=== PATIENT | female | born 1935 | race Caucasian/White ===

== ENCOUNTER 2016-05-31 10:24 | Inpatient (IN) | payer MEDICARE ==
[~2016-05-31] VITALS: Ht 165.1 cm; Wt 116.4 kg
[2016-05-31] VITALS (22 sets, daily range): BP systolic 85–144; BP diastolic 52–86; PULSE 75–99; RESP 12–24; TEMP 96.2–98.4; O2SAT 90–95; Ht 165.1 cm; Wt 116.4 kg
[~2016-05-31 10:24] MED LIST: ALLO100T PO; CHLO-120 PO; FEXO-118 PO; NAPR-1119 PO; PETR3.5O BOTH EYES; PROP10DR2 BOTH EYES; VALS160T25 PO; [UNRECOGNIZED DRUG - CODE] BOTH EYES
--- OUTSIDE RECORDS SUMMARY | 2016-05-31 10:29 | XMS REPORT | Continuity of Care Document ---
Author Author [facility] Organization [facility] Address Unknown Phone Unavailable Support Name Relationship Address Phone REJI KELLEY MD Caregiver [address] [place] [address] Unavailable PERI PENA MD Caregiver [address] [place] [place] [address] Unavailable GEORGIEMATIAS StoverA Next Of Kin Unknown [phone] Insurance Providers Guarantor Nasir Holt Address [place] [address] Email DENIED Payer [facility] Policy Number [id number] Subscriber's Name Tiburcio Holt July Relationship 18 Self Effective Date 08 Payer Medicare Policy Number [id number] Subscriber's Name Tiburcio Holt Julia Relationship 18 Self Effective Date 00 Advance Directives Directive Response Recorded Date/Time Advanced Directives Type None 02/17/16 1:42pm Chief Complaint and Reason for Visit Chief Complaint Nosebleed Reason for Visit Epistaxis Problems Past Problems Medical Problem Onset Date Epistaxis Unknown Medications Current Home Medications Medication Dose Units Route Directions Days Qty Instructions Start Date Allopurinol 100 Mg Tablet 100 Mg Oral Daily 02/17/16 Carboxymethylcellulose Sodium (Restore Tears) 30 Ml Drops 1 Drop Both Eyes Daily as needed for Prn Orders 02/17/16 Chlorpheniramine Maleate (Chlor-Trimeton) 4 Mg Tablet 4 Mg Oral Every 4 Hours as needed for Prn Orders 02/17/16 Fexofenadine Hcl 180 Mg Tablet 180 Mg Oral Daily 02/17/16 Mineral Oil/Petrolatum,White (Refresh P.m. Ointment) 3.5 Gm Oint...g. 1 Applic Both Eyes Bedtime as needed for Prn Orders 02/17/16 Naproxen Sodium (Naproxen 220MG) 220 Mg Tablet 440 Mg Oral Twice Daily With Meals 02/17/16 Propylene Glycol/Peg 400 (Systane Ultra 0.4-0.3% Eye Drp) 10 Ml Drops 1 Drop Both Eyes Four Times Daily as needed for Dry Eyes 02/17/16 Valsartan 160 Mg Tablet 160 Mg Oral Daily 02/17/16 Social History Social History Problem Response Recorded Date/Time Onset Date Status Hx Substance Use No 02/17/2016 2:28pm Not Applicable Not Applicable Query Response Start Date Stop Date Smoking Status Never smoker Hospital Discharge Instructions No hospital discharge instructions. Plan of Care Discharge Date 02/17/16 2:50pm Disposition 01 DISCHARGED HOME, SELF-CARE Condition at Discharge Stable Instructions/Education Provided DI for Nosebleed Prescriptions See Medication Section Referrals PERI PENA MD Address: [address] [place] [address] [place] [phone] Additional Instructions/Education I do want you to go to Dr. Sawyer's office from the ER. His office number is [phone] and his address is [address] [place] [address] in [place]. Care Plan and Goals Physician Care Plan Problem:Nosebleed Goal: Follow up with primary care provider Instructions: Take medications and follow care plan as discussed/written Functional Status No functional status results. Allergies, Adverse Reactions, Alerts Allergen Type Severity Reaction Status Last Updated Morphine Adverse Reaction Unknown "CRAZY" Active 02/17/16 Hydrocodone Adverse Reaction Unknown NAUSEA Active 02/17/16 Acetaminophen Adverse Reaction Unknown NAUSEA Active 02/17/16 Neomycin Allergy Intermediate RASH Active 02/17/16 Meperidine Adverse Reaction Unknown "CRAZY" Active 02/17/16 Immunizations Query Response on File Recorded Date/Time Influenza Vaccine Hx 12/1302/17/16 2:28pm Vital Signs Acute Vital Signs Vital Response Date/Time Pulse Rate (adult) 104 bpm (60 - 100) 02/17/2016 2:50pm Respiratory Rate 20 breaths/min (10 - 20) 02/17/2016 2:50pm O2 Sat by Pulse Oximetry 88 % (90 - 100) 02/17/2016 2:50pm Blood Pressure 161/74 mm Hg 02/17/2016 2:50pm Height (Feet) 5 feet 02/17/2016 1:42pm Height (Inches) 5.00 inches 02/17/2016 1:42pm Weight (Kilograms) 122.000 kg 02/17/2016 1:42pm Body Mass Index (BMI) 44.0 02/17/2016 1:42pm Results Laboratory Results Test Name Result Units Flags Reference Collection Date/Time Result Date/ Time Comments White Blood Count 7.1 T/MM3 4.5-11.0 02/17/2016 2:30pm 02/17/2016 2: 37pm Red Blood Count 4.30 M/MM3 4.00-5.20 02/17/2016 2:30pm 02/17/2016 2: 37pm Hemoglobin 14.9 GM/DL 12-16 02/17/2016 2:30pm 02/17/2016 2:37pm Hematocrit 43.9 % 36-46 02/17/2016 2:30pm 02/17/2016 2:37pm Mean Corpuscular Volume 102.1 UM3 H 80-100 02/17/2016 2:30pm 02/17/2016 2:37pm Mean Corpuscular Hemoglobin 34.7 UUG H 26-34 02/17/2016 2:30pm 2015 2:37pm Mean Corpuscular Hemoglobin Concent 33.9 GM/DL 31-37 02/17/2016 2:30pm 02/17/2016 2:37pm RDW Standard Deviation 54.2 FL H 36.9-50.2 02/17/2016 2:30pm 02/17/2016 2:37pm Platelet Count 152 T/MM3 130-400 02/17/2016 2:30pm 02/17/2016 2:37pm Mean Platelet Volume 10.4 UM3 9.4-12.4 02/17/2016 2:30pm 02/17/2016 2: 37pm Neutrophils (%) (Auto) 65.0 % 33-66 02/17/2016 2:30pm 02/17/2016 2: 37pm Lymphocytes (%) (Auto) 18.2 % L 23-45 02/17/2016 2:30pm 02/17/2016 2: 37pm Monocytes (%) (Auto) 10.9 % H 0-9.0 02/17/2016 2:30pm 02/17/2016 2:37pm Eosinophils (%) (Auto) 4.7 % H 0-4 02/17/2016 2:30pm 02/17/2016 2:37pm Basophils (%) (Auto) 0.8 % 0-2 02/17/2016 2:30pm 02/17/2016 2:37pm Immature Granulocyte % (Auto) 0.4 % 0.0-0.5 02/17/2016 2:30pm 2015 2:37pm Absolute Neutrophils (auto) 4.6 T/MM3 1.8-7.7 02/17/2016 2:30pm 2015 2:37pm Absolute Lymphocytes (auto) 1.3 T/MM3 1-4.8 02/17/2016 2:30pm 2015 2:37pm Absolute Monocytes (auto) 0.8 T/MM3 0-0.8 02/17/2016 2:30pm 02/17/2016 2:37pm Absolute Eosinophils (auto) 0.3 T/MM3 0-0.5 02/17/2016 2:30pm 2015 2:37pm Absolute Basophils (auto) 0.1 T/MM3 0-0.2 02/17/2016 2:30pm 02/17/2016 2:37pm Absolute Immature Granulocyte (auto 0.03 T/MM3 0.00-0.03 02/17/2016 2: 30pm 02/17/2016 2:37pm Procedures No known history of procedures. Encounters Encounter Location Arrival/Admit Date Discharge/Depart Date Attending Provider Departed Emergency Room [facility] 02/17/16 1:42pm 02/17/16 2: 50pm REJI KELLEY MD Recent Diagnosis
--- OUTSIDE RECORDS SUMMARY | 2016-05-31 10:30 | XMS REPORT | Referral Summary ---
Author Author [facility] Organization [facility] Address Unknown Phone Unavailable Care Team Providers Care Brim Presser Name Role Phone Bolivar Clark Primary Care Physician [phone] Encounter Date(s): 01/26/16 - 01/26/16 [facility], [address] [place] [address]- Discharge Diagnosis: Moderate to severe pulmonary hypertension Discharge Diagnosis: CKD (chronic kidney disease) stage 3, GFR 30-59 ml/min Discharge Diagnosis: Mild mitral stenosis Discharge Diagnosis: Chronic low back pain Discharge Diagnosis: Mitral regurgitation Discharge Diagnosis: Mild major depression Discharge Diagnosis: Benign essential hypertension Discharge Diagnosis: Lymphedema of leg Discharge Diagnosis: Need for influenza vaccination Discharge Diagnosis: Impaired fasting blood sugar Discharge Diagnosis: Morbid obesity Discharge Diagnosis: Urinary incontinence, mixed Discharge Diagnosis: Peripheral neuropathy Discharge Disposition: 01-Home or Self Care Attending Physician: Momo Clark MD Admitting Physician: Momo Clark MD Vital Signs Most recent to 1 oldest [Reference Range]: Temperature Tympanic 36.8 degC [36.6-38.1 degC] (01/26/16 1:18 PM) Peripheral Pulse 112 bpm Rate [60-100 bpm] *HI* (01/26/16 1:18 PM) Respiratory Rate 16 br/min [14-20 br/min] (01/26/16 1:18 PM) Blood Pressure 132/78 mmHg [90-140/60-90 mmHg] (01/26/16 1:18 PM) Problem List Condition Effective Dates Status Health Status Informant Gait Active disturbance(Confirme d) Allergies(Confirmed) Active Allergic Active rhinitis/hay fever(Confirmed) Anesthetic Active Complications(Confir med) Bladder Active problem(Confirmed) Chronic low back Active pain(Confirmed) Depression(Confirmed Active ) Dizziness(Confirmed) Active Eczema(Confirmed) Active Stress Active incontinence(Confirm ed) Gout(Confirmed) Active Hypertension(Confirm Active ed) Osteoarthritis(Confi Active rmed) Impaired fasting Active blood sugar(Confirmed) Mild major Active depression(Confirmed ) Morbid Active patient obesity(Confirmed) Pneumonia(Confirmed) Active Peripheral Active neuropathy(Confirmed ) Scarlet Active fever(Confirmed) Sinus Active infections(Confirmed ) Tuberculosis(Confirm Active ed) Urge Active incontinence(Confirm ed) Chicken Active pox(Confirmed) Allergies, Adverse Reactions, Alerts Substance Reaction Severity Status acetaminophen Active Animal Dander: Feline or eyes swell Active Canin aspirin Active Chromium1 Active ergot alkaloids Active HYDROcodone Active meperidine Active Mold Active morphine Active neomycin TOPICAL SKIN REACTION Severe Active Pollen Active 1in nasal spray Medications Poppy 180 mg, Oral, Daily, 0 Refill(s) Start Date: 07/21/15 Status: Ordered allopurinol 100 mg oral tablet 100 mg 1 tabs, Oral, Daily, # 90 tabs, 2 Refill(s), Pharmacy: [email or web address], 1 tabs Oral Daily Start Date: 08/07/15 Status: Ordered Chlor-Trimeton 4 mg, Oral, as needed for allergy symptoms, 0 Refill(s) Start Date: 07/31/13 Status: Ordered Home Oxygen (DME) DME Item Take 3lpm at night and PRN on nasal cannula., See Instructions, # 1 Each, 0 Refill(s), Supply Start Date: 07/09/15 Status: Ordered Home Oxygen (DME) 3 LPM, Nasal, Bedtime (once a day), # 1 Each, 0 Refill(s), Supply Start Date: 11/19/15 Status: Ordered naproxen sodium 220 mg oral tablet 2 tabs, Oral, BID, # 60 tabs, 0 Refill(s) Start Date: 07/31/13 Status: Ordered Refresh PM odilia, Eye-Both, Bedtime (once a day), as needed for dry eyes, 0 Refill(s) Start Date: 07/31/13 Status: Ordered Systane Ultra drops, Eye-Both, BID, 0 Refill(s) Start Date: 07/31/13 Status: Ordered valsartan 160 mg oral tablet 160 mg 1 tabs, Oral, Daily, # 90 tabs, 2 Refill(s), Pharmacy: [email or web address], 1 tabs Oral Daily Start Date: 08/07/15 Status: Ordered Results Chemistry Most recent to 1 oldest [Reference Range]: Sodium Lvl [135-144 139 mEq/L mEq/L] (01/26/16 1:50 PM) Potassium Lvl 4.9 mEq/L [3.5-5.2 mEq/L] (01/26/16 1:50 PM) Chloride [99-111 104 mEq/L mEq/L] (01/26/16 1:50 PM) CO2 [22-31 mEq/L] 28 mEq/L (01/26/16 1:50 PM) AGAP [3-20] 7 (01/26/16 1:50 PM) BUN [10-20 mg/dL] 20 mg/dL (01/26/16 1:50 PM) Glucose Lvl [70-99 99 mg/dL mg/dL] (01/26/16 1:50 PM) Creatinine Lvl 0.87 mg/dL [0.57-1.11 mg/dL] (01/26/16 1:50 PM) eGFR [>60 mL/min] >60 mL/min 1 (01/26/16 1:50 PM) Calcium Lvl 9.5 mg/dL [8.9-10.5 mg/dL] (01/26/16 1:50 PM) Albumin Lvl [3.4-4.8 4.1 gm/dL gm/dL] (01/26/16 1:50 PM) Total Protein 7.3 gm/dL [6.0-7.6 gm/dL] (01/26/16 1:50 PM) Globulin [1.8-4.0 3.2 gm/dL gm/dL] (01/26/16 1:50 PM) ALT [0-55 U/L] 13 U/L (01/26/16 1:50 PM) AST [5-34 U/L] 21 U/L (01/26/16 1:50 PM) Alk Phos [40-150 66 U/L U/L] (01/26/16 1:50 PM) Bili Total [0.2-1.2 0.7 mg/dL mg/dL] (01/26/16 1:50 PM) Hgb A1c [4.1-5.6 %] 5.4 % (01/26/16 1:50 PM) eAvg Glucose 108.3 mg/dL (01/26/16 1:50 PM) 1Result Comment: Multiply eGFR results by 1.21 for race. Immunizations Vaccine Date Refusal Reason influenza virus vaccine, inactivated 01/08/15 tetanus-diphth toxoids (Td) adult/adol 08/23/08 Procedures Procedure Date Related Diagnosis Body Site Right Cataract extraction and insertion of 2014 intraocular lens Rt Shoulder Hemiarthroplasty 08/2006 Adenoidectomy Colonoscopy Hammertoe x21 Joint replacement Knee replacement2 Tonsillectomy 1Surgery 2Right and left Social History Social History Type Response Smoking Status Never smoker Assessment and Plan Extracted from: Title: Ambulatory Patient Education Author: Momo Clark MD Date: Musculoskeletal Back Pain, Adult Back pain is very common in adults.The cause of back pain is rarely dangerous and the pain often gets better over time.The cause of your back pain may not be known. Some common causes of back pain include: Strain of the muscles or ligaments supporting the spine. Wear and tear (degeneration) of the spinal disks. Arthritis. Direct injury to the back. For many people, back pain may return. Since back pain is rarely dangerous, most people can learn to manage this condition on their own. HOME CARE INSTRUCTIONS Watch your back pain for any changes. The following actions may help to lessen any discomfort you are feeling: Remain active. It is stressful on your back to sit or lithographers printer one place for long periods of time. Do not sit, drive, or lithographers printer one place for more than 30 minutes at a time. Take short walks on even surfaces as soon as you are able.Try to increase the length of time you walk each day. Exercise regularly as directed by your health care provider. Exercise helps your back heal faster. It also helps avoid future injury by keeping your muscles strong and flexible. Do not stay in bed.Resting more than 12 days can delay your recovery. Pay attention to your body when you bend and lift. The most comfortable positions are those that put less stress on your recovering back. Always use proper lifting techniques, including: Bending your knees. Keeping the load close to your body. Avoiding twisting. Find a comfortable position to sleep. Use a firm mattress and lie on your side with your knees slightly bent. If you lie on your back, put a pillow under your knees. Avoid feeling anxious or stressed.Stress increases muscle tension and can worsen back pain.It is important to recognize when you are anxious or stressed and learn ways to manage it, such as with exercise. Take medicines only as directed by your health care provider. Over-the- counter medicines to reduce pain and inflammation are often the most helpful. Your health care provider may prescribe muscle relaxant drugs.These medicines help dull your pain so you can more quickly return to your normal activities and healthy exercise. Apply ice to the injured area: Put ice in a plastic bag. Place a towel between your skin and the bag. Leave the ice on for 20 minutes, 23 times a day for the first 23 days. After that, ice and heat may be alternated to reduce pain and spasms. Maintain a healthy weight. Excess weight puts extra stress on your back and makes it difficult to maintain good posture. SEEK MEDICAL CARE IF: You have pain that is not relieved with rest or medicine. You have increasing pain going down into the legs or buttocks. You have pain that does not improve in one week. You have night pain. You lose weight. You have a fever or chills. SEEK IMMEDIATE MEDICAL CARE IF: You develop new bowel or bladder control problems. You have unusual weakness or numbness in your arms or legs. You develop nausea or vomiting. You develop abdominal pain. You feel faint. This information is not intended to replace advice given to you by your health care provider. Make sure you discuss any questions you have with your health care provider. Document Released: 02/14/2006 Document Revised: 03/07/2015 Document Reviewed: [employer] Patient Education 2016 [employer] No follow up information was provided. Extracted from: Title: multiple medical problems Author: Momo Clark MD Date: Impression and Plan Diagnosis Lymphedema of leg (KLW17-DO I89.0, Discharge, Medical). Mild major depression (RQA36-XL F32.0, Discharge, Medical). Need for influenza vaccination (ATQ18-VU Z23, Discharge, Medical). Benign essential hypertension (EMQ99-RH I10, Discharge, Medical). Peripheral neuropathy (ULC13-BR G62.9, Discharge, Medical). Mitral regurgitation (BZE14-GN I34.0, Discharge, Medical). Mild mitral stenosis (XPC33-QO I05.0, Discharge, Medical). Moderate to severe pulmonary hypertension (HUU84-HE I27.2, Discharge, Medical). Chronic low back pain (BJZ97-EZ M54.5, Discharge, Medical). CKD (chronic kidney disease) stage 3, GFR 30-59 ml/min (NEF50-AW N18.3, Discharge, Medical). Impaired fasting blood sugar (DBC84-UI R73.01, Discharge, Medical). Morbid obesity (BUS18-WA E66.01, Discharge, Medical). Urinary incontinence, mixed (ENI36-BU N39.46, Discharge, Medical). Plan: 1) Healthy diet and daily exercise helps most things. 2) You refused the Influenza vaccine and the Prevnar-13 vaccines due to your allergies. 3) You didn't want to see the Neurologist. 4) Continue your present meds and oxygen. 5) See the edging catcher and tooth cutter spur, as scheduled. 6) See me in 3 months and as needed. 7) Lab ordered today. . Orders Orders (Selected) Outpatient Orders Order Office Visit Level 5 Est 46259: . Dx/Order Association Plan: Diagnosis: Benign essential hypertension Comment: Ordered: Office Visit Level 5 Est 36201; 01/26/16 13:12:00 EDUCATION SUPERVISOR, Lymphedema of leg | Mild major depression | Benign essential hypertension | Peripheral neuropathy | Mitral regurgitation | Mild mitral stenosis | Moderate to severe pulmonary hypertension | Chronic low back pain | CKD (chronic k... Diagnosis: CKD (chronic kidney disease) stage 3, GFR 30-59 ml/min Comment: Ordered: Office Visit Level 5 Est [id number]; 01/26/16 13:12:00 EDUCATION SUPERVISOR, Lymphedema of leg | Mild major depression | Benign essential hypertension | Peripheral neuropathy | Mitral regurgitation | Mild mitral stenosis | Moderate to severe pulmonary hypertension | Chronic low back pain | CKD (chronic k... Diagnosis: Chronic low back pain Comment: Ordered: Office Visit Level 5 Est 75939; 01/26/16 13:12:00 EDUCATION SUPERVISOR, Lymphedema of leg | Mild major depression | Benign essential hypertension | Peripheral neuropathy | Mitral regurgitation | Mild mitral stenosis | Moderate to severe pulmonary hypertension | Chronic low back pain | CKD (chronic k... Diagnosis: Lymphedema of leg Comment: Ordered: Office Visit Level 5 Est [id number]; 01/26/16 13:12:00 EDUCATION SUPERVISOR, Lymphedema of leg | Mild major depression | Benign essential hypertension | Peripheral neuropathy | Mitral regurgitation | Mild mitral stenosis | Moderate to severe pulmonary hypertension | Chronic low back pain | CKD (chronic k... Diagnosis: Mild major depression Comment: Ordered: Office Visit Level 5 Est [id number]; 01/26/16 13:12:00 EDUCATION SUPERVISOR, Lymphedema of leg | Mild major depression | Benign essential hypertension | Peripheral neuropathy | Mitral regurgitation | Mild mitral stenosis | Moderate to severe pulmonary hypertension | Chronic low back pain | CKD (chronic k... Diagnosis: Mild mitral stenosis Comment: Ordered: Office Visit Level 5 Est [id number]; 01/26/16 13:12:00 EDUCATION SUPERVISOR, Lymphedema of leg | Mild major depression | Benign essential hypertension | Peripheral neuropathy | Mitral regurgitation | Mild mitral stenosis | Moderate to severe pulmonary hypertension | Chronic low back pain | CKD (chronic k... Diagnosis: Mitral regurgitation Comment: Ordered: Office Visit Level 5 Est [id number]; 01/26/16 13:12:00 EDUCATION SUPERVISOR, Lymphedema of leg | Mild major depression | Benign essential hypertension | Peripheral neuropathy | Mitral regurgitation | Mild mitral stenosis | Moderate to severe pulmonary hypertension | Chronic low back pain | CKD (chronic k... Diagnosis: Moderate to severe pulmonary hypertension Comment: Ordered: Office Visit Level 5 Est [id number]; 01/26/16 13:12:00 EDUCATION SUPERVISOR, Lymphedema of leg | Mild major depression | Benign essential hypertension | Peripheral neuropathy | Mitral regurgitation | Mild mitral stenosis | Moderate to severe pulmonary hypertension | Chronic low back pain | CKD (chronic k... Diagnosis: Need for influenza vaccination Comment: Diagnosis: Peripheral neuropathy Comment: Ordered: Office Visit Level 5 Est [id number]; 01/26/16 13:12:00 EDUCATION SUPERVISOR, Lymphedema of leg | Mild major depression | Benign essential hypertension | Peripheral neuropathy | Mitral regurgitation | Mild mitral stenosis | Moderate to severe pulmonary hypertension | Chronic low back pain | CKD (chronic k... End of Orders ."
--- OUTSIDE RECORDS SUMMARY | 2016-05-31 10:30 | XMS REPORT | Referral Summary ---
Author Author [facility] Organization [facility] Address Unknown Phone Unavailable Care Team Providers Care Director Of Research And Development Name Role Phone Bolivar Clark Primary Care Physician [phone] Encounter VC Date(s): 01/28/16 - 01/28/16 [facility] [address] [place] [address] [place] [address] Discharge Diagnosis: Overweight Discharge Diagnosis: Incontinence Discharge Diagnosis: Sleep apnea Discharge Diagnosis: Hypoxia Discharge Diagnosis: Hypertension Discharge Disposition: 01-Home or Self Care Attending Physician: Pantera Demarco MD Admitting Physician: Pantera Demarco MD Referring Physician: Momo Clark MD Vital Signs Most recent to 1 oldest [Reference Range]: Peripheral Pulse 90 bpm Rate [60-100 bpm] (01/28/16 12:13 PM) Blood Pressure 148/86 mmHg [90-140/60-90 mmHg] *HI* (01/28/16 12:13 PM) Problem List Condition Effective Dates Status [...] Daily, # 90 tabs, 2 Refill(s), Pharmacy: [facility], 1 tabs Oral Daily Start [...] Daily, # 90 tabs, 2 Refill(s), Pharmacy: [facility], 1 tabs Oral Daily Start Date: 08/07/15 Status: Ordered Results No data available for this section Immunizations Vaccine Date Refusal Reason influenza virus [...] smoker Assessment and Plan Extracted from: Title: Office Visit Note Author: Pantera Demarco MD Date: 01/28/16 Assessment/Plan 1.Hypoxia 2.Incontinence 3.Overweight 4.Sleep apnea 5.Hypertension Discussion: I think that her edema would be a lot better if she weren't taking nonsteroidal anti-inflammatory drugs however,the naproxen is probably reasonable for her arthralgias. We reviewedthe importance of oxygen therapyand pointed out that her hemoglobin level is actually getting better. We advised her that it is still reasonable to have a sleep evaluation. She is to see me in 6-12 months or any time as necessary.
--- OUTSIDE RECORDS SUMMARY | 2016-05-31 10:31 | XMS REPORT | Referral Summary ---
Author Author Via JACQUELINE Florian Newton, [facility] Organization [facility] JACQUELINE Florian Newton [facility] Address Unknown Phone Unavailable Care Team Providers Care Hand Gluer And Slicer Name Role Phone Bolivar Clark Primary Care Physician [phone] Encounter Date(s): 04/26/16 - 04/26/16 Via JACQUELINE Florian Newton, [address] [place] [id number]- Discharge Diagnosis: Benign essential hypertension Discharge Diagnosis: Mitral regurgitation Discharge Diagnosis: Chronic low back pain Discharge Diagnosis: Polyneuropathy Discharge Diagnosis: Moderate to severe pulmonary hypertension Discharge Diagnosis: CKD (chronic kidney disease) stage 3, GFR 30-59 ml/min Discharge Diagnosis: TAYO (obstructive sleep apnea) Discharge Diagnosis: Urinary incontinence, mixed Discharge Diagnosis: Mild mitral stenosis Discharge Diagnosis: Impaired fasting blood sugar Discharge Diagnosis: Mild major depression Discharge Diagnosis: Lymphedema of leg Discharge Diagnosis: Morbid obesity Discharge Disposition: 01-Home or Self Care Attending Physician: Momo Clark MD Admitting Physician: Momo Clark MD Vital Signs Most recent to 1 oldest [Reference Range]: Temperature Tympanic 36.3 degC [36.6-38.1 degC] *LOW* (04/26/16 1:37 PM) Peripheral Pulse 100 bpm Rate [60-100 bpm] (04/26/16 1:37 PM) Blood Pressure 136/76 mmHg [90-140/60-90 mmHg] (04/26/16 1:37 PM) Problem List Condition Effective Dates Status [...] 1 tabs, Oral, Daily, # 90 tabs, 3 Refill(s), Pharmacy: [facility], 1 tabs Oral Daily,x90 days Start Date: 04/26/16 Stop Date: 04/21/17 Status: Ordered Chlor-Trimeton 4 mg, Oral, as [...] Ordered naproxen sodium 220 mg oral tablet 220 mg 1 tabs, Oral, BID, # 60 tabs, 0 Refill(s) Start Date: 07/31/13 Status: Ordered Neilmed Nasogel nasal gel as needed for sleep, 0 Refill(s) Start Date: 04/26/16 Status: Ordered Refresh PM odilia, Eye-Both, Bedtime (once a day), as needed for dry eyes, 0 Refill(s) Start Date: 07/31/13 Status: Ordered Systane Ultra drops, Eye-Both, BID, 0 Refill(s) Start Date: 07/31/13 Status: Ordered valsartan 160 mg oral tablet 160 mg 1 tabs, Oral, Daily, # 90 tabs, 3 Refill(s), Pharmacy: [facility], 1 tabs Oral Daily,x90 days Start Date: 04/26/16 Stop Date: 04/21/17 Status: Ordered Results No data available for this section Immunizations Given and Recorded Vaccine Date Status Refusal Reason influenza virus vaccine, inactivated 01/08/15 Given tetanus-diphth toxoids (Td) adult/adol 08/23/08 Recorded Procedures Procedure Date Related Diagnosis Body Site Right Cataract extraction and insertion of 2014 intraocular lens Rt Shoulder Hemiarthroplasty 08/2006 Adenoidectomy Colonoscopy Hammertoe x21 Joint replacement Knee replacement2 Tonsillectomy 1Surgery 2Right and left Social History Social History Type Response Smoking Status Never smoker Assessment and Plan Extracted from: Title: Ambulatory Patient Education Author: Momo Clark MD Date: 04/26 Musculoskeletal Back Pain, Adult Back pain is [...] stressful on your back to 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 Do not sit, drive, or relief captain one place for more than 30 minutes [...] Released: 02/14/2006 Document Revised: 03/07/2015 Document Reviewed: [employer] Patient Education 2016 [employer] No follow up information was provided. Extracted from: Title: several problems Author: Momo Clark MD Date: 04/26/16 Impression and Plan Diagnosis Benign essential hypertension (SVV36-WT I10, Discharge, Medical). Chronic low back pain (VIJ84-EA M54.5, Discharge, Medical). CKD (chronic kidney disease) stage 3, GFR 30-59 ml/min (CDW11-BT N18.3, Discharge, Medical). Impaired fasting blood sugar (QSK37-RB R73.01, Discharge, Medical). Lymphedema of leg (SLJ91-JO I89.0, Discharge, Medical). Mild major depression (ZNE26-HO F32.0, Discharge, Medical). Mild mitral stenosis (WSH12-RE I05.0, Discharge, Medical). Mitral regurgitation (IWZ07-HE I34.0, Discharge, Medical). Moderate to severe pulmonary hypertension (OZO82-PB I27.2, Discharge, Medical). Morbid obesity (MQH62-AO E66.01, Discharge, Medical). TAYO (obstructive sleep apnea) (AQP08-KA G47.33, Discharge, Medical). Polyneuropathy (JJX32-PV G62.9, Discharge, Medical). Urinary incontinence, mixed (URD29-FM N39.46, Discharge, Medical). Plan: 1) Continue your present meds. 2) Continue your oxygen when sleeping. 3) See me in 3 months and as needed. 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 . Orders Orders (Selected) Outpatient Orders Ordered Office Visit Level 4 Est 11655: Prescriptions Prescribed allopurinol 100 mg oral tablet: 100 mg=1 tabs, Oral, Daily, for 90 days, 90 tabs , 3 Refill(s) valsartan 160 mg oral tablet: 160 mg=1 tabs, Oral, Daily, for 90 days, 90 tabs, 3 Refill(s). 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 Diagnosis: CKD (chronic kidney disease) stage 3, GFR 30-59 ml/min Comment: Ordered: Office Visit Level 4 Est [id number]; 04/26/16 13:33:00 ASSISTANT PUBLIC DEFENDER, Moderate to severe pulmonary hypertension | TAYO (obstructive sleep apnea) | Benign essential hypertension | CKD (chronic kidney disease) stage 3, GFR 30-59 ml/min | Chronic low back pain | Impaired fasting blood sugar | Lymphede... Diagnosis: Chronic low back pain Comment: Ordered: Office Visit Level 4 Est [id number]; 04/26/16 13:33:00 ASSISTANT PUBLIC DEFENDER, Moderate to severe pulmonary hypertension | TAYO (obstructive sleep apnea) | Benign essential hypertension | CKD (chronic kidney disease) stage 3, GFR 30-59 ml/min | Chronic low back pain | Impaired fasting blood sugar | Lymphede... Diagnosis: Impaired fasting blood sugar Comment: Ordered: Office Visit Level 4 Est [id number]; 04/26/16 13:33:00 ASSISTANT PUBLIC DEFENDER, Moderate to severe pulmonary hypertension | TAYO (obstructive sleep apnea) | Benign essential hypertension | CKD (chronic kidney disease) stage 3, GFR 30-59 ml/min | Chronic low back pain | Impaired fasting blood sugar | Lymphede... Diagnosis: Lymphedema of leg Comment: Ordered: Office Visit Level 4 Est [id number]; 04/26/16 13:33:00 ASSISTANT PUBLIC DEFENDER, Moderate to severe pulmonary hypertension | TAYO (obstructive sleep apnea) | Benign essential hypertension | CKD (chronic kidney disease) stage 3, GFR 30-59 ml/min | Chronic low back pain | Impaired fasting blood sugar | Lymphede... Diagnosis: Mild major depression Comment: Ordered: Office Visit Level 4 Est [id number]; 04/26/16 13:33:00 ASSISTANT PUBLIC DEFENDER, Moderate to severe pulmonary hypertension | TAOY (obstructive sleep apnea) | Benign essential hypertension | CKD (chronic kidney disease) stage 3, GFR 30-59 ml/min | Chronic low back pain | Impaired fasting blood sugar | Lymphede... Diagnosis: Mild mitral stenosis Comment: Ordered: Office Visit Level 4 Est [id number]; 04/26/16 13:33:00 ASSISTANT PUBLIC DEFENDER, Moderate to severe pulmonary hypertension | TAYO (obstructive sleep apnea) | Benign essential hypertension | CKD (chronic kidney disease) stage 3, GFR 30-59 ml/min | Chronic low back pain | Impaired fasting blood sugar | Lymphede... Diagnosis: Mitral regurgitation Comment: Ordered: Office Visit Level 4 Est [id number]; 04/26/16 13:33:00 ASSISTANT PUBLIC DEFENDER, Moderate to severe pulmonary hypertension | TAYO (obstructive sleep apnea) | Benign essential hypertension | CKD (chronic kidney disease) stage 3, GFR 30-59 ml/min | Chronic low back pain | Impaired fasting blood sugar | Lymphede... Diagnosis: Moderate to severe pulmonary hypertension Comment: Ordered: Office Visit Level 4 Est [id number]; 04/26/16 13:33:00 ASSISTANT PUBLIC DEFENDER, Moderate to severe pulmonary hypertension | TAYO (obstructive sleep apnea) | Benign essential hypertension | CKD (chronic kidney disease) stage 3, GFR 30-59 ml/min | Chronic low back pain | Impaired fasting blood sugar | Lymphede... Diagnosis: Morbid obesity Comment: Diagnosis: TAYO (obstructive sleep apnea) Comment: Ordered: Office Visit Level 4 Est [id number]; 04/26/16 13:33:00 ASSISTANT PUBLIC DEFENDER, Moderate to severe pulmonary hypertension | TAYO (obstructive sleep apnea) | Benign essential hypertension | CKD (chronic kidney disease) stage 3, GFR 30-59 ml/min | Chronic low back pain | Impaired fasting blood sugar | Lymphede... Diagnosis: Polyneuropathy Comment: Ordered: Office Visit Level 4 Est [id number]; 04/26/16 13:33:00 ASSISTANT PUBLIC DEFENDER, Moderate to severe pulmonary hypertension | TAYO (obstructive sleep apnea) | Benign essential hypertension | CKD (chronic kidney disease) stage 3, GFR 30-59 ml/min | Chronic low back pain | Impaired fasting blood sugar | Lymphede... Diagnosis: Urinary incontinence, mixed Comment: Ordered: Office Visit Level 4 Est 33374; 04/26/16 13:33:00 ASSISTANT PUBLIC DEFENDER, Moderate to severe pulmonary hypertension | TAYO (obstructive sleep apnea) | Benign essential hypertension | CKD (chronic kidney disease) stage 3, GFR 30-59 ml/min | Chronic low back pain | Impaired fasting blood sugar | Lymphede... Additional Orders: Comment: Ordered: Neilmed Nasogel nasal gel,as needed for sleep, 0 Refill(s) Ordered: allopurinol 100 mg oral tablet,100 mg 1 tabs, Oral, Daily , # 90 tabs, 3 Refill(s), Pharmacy: [facility], 1 tabs Oral Daily,x90 days Ordered: valsartan 160 mg oral tablet,160 mg 1 tabs, Oral, Daily, # 90 tabs, 3 Refill(s), Pharmacy: [facility], 1 tabs Oral Daily,x90 days End of Orders ."
--- NOTE | 2016-05-31 10:50 | NUR ---
PHYSICIAN VISIT DR. ROY IN TO SEE PATIENT.
[2016-05-31] MEDS ORDERED: NORMAL SALINE 1,000 ML IV ONE ×2 (10:55→12:45)
[2016-05-31] MEDS ORDERED: ACET-3088 PO (11:00)
[2016-05-31] MEDS ORDERED: ACET-2321 PO (11:02)
[2016-05-31 11:13] LABS: BASOPHILS % (AUTO) 0.4 % (0-2); EOSINOPHILS # (AUTO) 0.2 T/MM3 (0-0.5); EOSINOPHILS % (AUTO) 3.1 % (0-4); HGB - HEMOGLOBIN 14.5 GM/DL (12-16); IMMATURE GRANULOCYTE # (AUTO) 0.03 T/MM3 (0.00-0.03); IMMATURE GRANULOCYTE % (AUTO) 0.4 % (0.0-0.5); LYMPHOCYTES # (AUTO) 1.5 T/MM3 (1-4.8); LYMPHOCYTES % (AUTO) 21.6 % (23-45); MEAN CORPUSCULAR HGB 33.2 UUG (26-34); MEAN CORPUSCULAR HGB CONC(MCHC 32.2 GM/DL (31-37); MEAN PLATELET VOLUME 10.6 UM3 (9.4-12.4); MONOCYTES # (AUTO) 0.6 T/MM3 (0-0.8); NEUTROPHILS #(AUTO)-ABSOLUTE 4.6 T/MM3 (1.8-7.7); NEUTROPHILS % (AUTO) 66.5 % (33-66); RED BLOOD COUNT 4.37 M/MM3 (4.00-5.20)
[2016-05-31 11:24] LABS: ALBUMIN/GLOBULIN RATIO 1.1 RATIO (1.1-2.2); ALKALINE PHOSPHATASE 64 U/L (38-126); ALT (SGPT) 27 U/L (9-52); ANION GAP 10 MEQ/L (5-15); AST (SGOT) 25 U/L (14-36); BUN/CREATININE RATIO 31 RATIO (6-26); CALCIUM 9.4 MG/DL (8.4-10.2); CHLORIDE 104 MEQ/L (98-107); CO2 - CARBON DIOXIDE 29 MEQ/L (22-30); CREATININE 0.8 MG/DL (0.7-1.2); GLOMERULAR FILTRATION RATE 69; GLUCOSE 124 MG/DL (65-110); LIPASE 39 U/L (23-300); POTASSIUM 4.7 MEQ/L (3.6-5); SODIUM 143 MEQ/L (134-144); TOTAL PROTEIN 7.7 G/DL (6.3-8.2)
--- NOTE | 2016-05-31 12:33 | NUR ---
ADMISSION PATIENT ASSIGNED ROOM 139. TATIANA CROWDER TO TAKE REPORT.
--- NOTE | 2016-05-31 12:35 | NUR ---
REPORT REPORT GIVEN TO TATIANA CROWDER.
--- NOTE | 2016-05-31 12:41 | ERPDOC ---
Departure Disposition Decision Date: May 31, 2016 Disposition Decision Time: 12:40 Disposition: 02 [place] [facility] [place] Impression Impression: Primary Impression: GI bleeding GI bleed type/associated pathology: unspecified gastrointestinal hemorrhage type Qualified Codes: K92.2 - Gastrointestinal hemorrhage, unspecified Severity: Mild Condition: Improved Seen By: Physician only Referrals: PERI PENA MD (Family) Problems/Meds/Labs Reviewed?: Yes Medications reviewed and manag: Yes Follow up care ordered?: Yes Mental Status: Alert, Oriented HPI - General Medical General Chief Complaint: GI Bleed Stated Complaint: GI BLEED Time Seen by Provider: 10:55 Source: patient (Patient presents to the ER with GI Bleeding. Patient apparently has had 4 large stools this morning with Bright red blood per rectum. Patient apparently was seen by Dr. Huber in the office, who sent the patient to the ER for treatment and admission. ) Exam Limitations: no limitations HPI - General Medical Occurred At: home Onset: Changing over time Duration: 6-12 hrs Pain Scale: Now & Worst: 0/10 Modifying Factors: IMPROVES WITH: other Associated Symptoms: malaise, other, weakness, DENIES: chest pain, cough, diaphoresis, fever/chills, headaches, loss of appetite, nausea/vomiting, rash, seizure, shortness of breath, syncope Hx of Similar Symptoms: Yes Allergies: Coded Allergies: neomycin (Verified Allergy, Intermediate, RASH, 05/31/16) amino acids (Verified Allergy, Unknown, 05/31/16) chromium (Verified Allergy, Unknown, 05/31/16) ergot alkaloids (Verified Allergy, Unknown, 05/31/16) acetaminophen (Verified Adverse Reaction, Unknown, NAUSEA, 05/31/16) hydrocodone (Verified Adverse Reaction, Unknown, NAUSEA, 05/31/16) meperidine (Verified Adverse Reaction, Unknown, "CRAZY", 05/31/16) morphine (Verified Adverse Reaction, Unknown, "CRAZY", 05/31/16) Past History Past Medical History Metabolic: gout Cardiac: CAD, angina Surgical History Denies Surgeries General: colonoscopy Family History Family PMH: FOUND: other Social History Smoking Status: Unknown if ever smoked Does patient use chewing tobac: No Second Hand Exposure: No Substance Use Type: does not use Alcohol Intake: none Housing: house Service: No Occupational Hazard: No Advance Directives: Yes Full Code Record Review Pertinent history updated: Yes Review of Systems Constitutional Constitutional: DENIES: chills, fever Eyes Lids/Accessories: DENIES: erythema, swelling ENMT Ears: DENIES: erythema, pain Balance: DENIES: ataxia, vertigo Sinuses: DENIES: pain, rhinorrhea Mouth/Throat: DENIES: sore throat Cardiovascular Cardiac: DENIES: chest pain, dyspnea on exertion, orthopnea Rhythm/Rate: DENIES: tachycardia Pulmonary Respiratory: DENIES: cough, dyspnea, sputum GI Upper Abdomen: DENIES: nausea, pain, vomiting Lower Abdomen: blood in stool, DENIES: constipation, diarrhea, pain General: DENIES: dysuria Musculoskeletal General: DENIES: cramps, pain, weakness Integumentary Skin: DENIES: color change, itching, rash Neurological General: DENIES: ataxia, change in strength, headache, numbness, poor coordination, seizures, syncope, vertigo, weakness Psychiatric Psychiatric: DENIES: anxiety, depression, nervousness Hematologic/Lymphatic Hematologic/Lymphatic: DENIES: anemia Allergic/Immunological Allergic/Immunoligical: DENIES: sneezing All other Systems All Other Systems: Reviewed and Negative Physical Exam General General Nourishment: well nourished, well developed, appears stated age, adult General Body Habitus: well groomed Vitals and Pain First Documented Vital Signs Date Time Temp Pulse Resp B/P Pulse Ox O2 Delivery O2 Flow Rate FiO2 05/31/16 10:28 97.9 100 18 163/88 98 Room Air 05/31/16 11:45 3.00 Weight: Kilograms: 117.000 Height (feet): 5 Height (inches): 5.00 Triage Pain Scale: RN VS reviewed by Provider: Yes Eyes (brief) Eyes Brief: found: EOMI, PERRL ENMT (brief) ENMT Brief: FOUND: mucosa moist Neck (brief) Neck: FOUND: trachea midline, NOT FOUND: tenderness, tracheal deviation Respiratory (brief) Respiratory: FOUND: clear all keane, equal bilaterally Cardiovascular (brief) Cardiac: FOUND: regular rate, regular rhythm Capillary Refill: <2 sec Pulses: all distal extremities, equal, strong Abdomen (brief) Abdominal Brief: FOUND: bowel normo active x4, soft, NOT FOUND: distended, tender Lymphatic (brief) Lymphatic Brief: NOT FOUND: adenopathy Musculoskeletal (brief) Musculoskeletal Brief: NOT FOUND: spasm, tenderness Integumentary (brief) Integumentary Brief: FOUND: pink, warm Neurologic (brief) Neurological Brief: FOUND: CN w/o gross def to obs, gait w/o gross def to obs, motor-no gross deficits, sensory-no gross deficits, NOT FOUND: ataxia Psychiatric (brief) Psychiatric Brief: FOUND: alert, attentive, normal affect, oriented Differential Diagnoses Considering: Other Progress Results/Orders Orders Procedure Category Date Status Time Iv Lock (Ed Only) EDM 05/31/16 Transmitted 10:55 Nothing By Mouth (Ed EDM 05/31/16 Transmitted Only) 10:55 Cbc W/Auto LAB 05/31/16 Complete Diff-Reflex Manual 10:55 Cmp - Comprehensive LAB 05/31/16 Complete Metabolic 10:55 Lipase LAB 05/31/16 Complete 10:55 Ua, Dip Wreflex LAB 05/31/16 Logged Microsc & Laboratory Asst 10:55 Normal Saline (Normal PHA 05/31/16 Complete Saline Iv) 10:55 Type And Screen BBK 05/31/16 Complete 10:[address] In Facility: ED ADM 05/31/16 Transmitted 12:32 Measure Vital Signs ALEA 05/31/16 In Process 12:32 Npo: Nothing By Mouth DIET 05/31/16 Transmitted Dinner Notify Adm Physician ALEA 05/31/16 In Process In Am 12:32 Compression Type Scd/ ALEA 05/31/16 In Process Gabriel Hose 12:32 Normal Saline (Normal PHA 05/31/16 In Process Saline Iv) 12:45 Lab Results Laboratory Tests Test 05/31/16 11:08 White Blood Count 7.0T/MM3 Red Blood Count 4.37M/MM3 Hemoglobin 14.5GM/DL Hematocrit 45.0% Mean Corpuscular Volume 103.0UM3 Mean Corpuscular Hemoglobin 33.2UUG Mean Corpuscular Hemoglobin Concent 32.2GM/DL RDW Standard Deviation 54.5FL Platelet Count 170T/MM3 Mean Platelet Volume 10.6UM3 Immature Granulocyte % (Auto) 0.4% Neutrophils (%) (Auto) 66.5% Lymphocytes (%) (Auto) 21.6% Monocytes (%) (Auto) 8.0% Eosinophils (%) (Auto) 3.1% Basophils (%) (Auto) 0.4% Absolute Immature Granulocyte (auto 0.03T/MM3 Absolute Neutrophils (auto) 4.6T/MM3 Absolute Lymphocytes (auto) 1.5T/MM3 Absolute Monocytes (auto) 0.6T/MM3 Absolute Eosinophils (auto) 0.2T/MM3 Absolute Basophils (auto) 0.0T/MM3 Turbidity < 20 Sodium Level 143MEQ/L Potassium Level 4.7MEQ/L Chloride Level 104MEQ/L Carbon Dioxide Level 29MEQ/L Anion Gap 10MEQ/L Blood Urea Nitrogen 25.0MG/DL Creatinine 0.8MG/DL Glomerular Filtration Rate Calc 69 BUN/Creatinine Ratio 31RATIO Glucose Level 124MG/DL Calculated Osmolality 280MOSM/KG Calcium Level 9.4MG/DL Total Bilirubin 0.80MG/DL Icterus Index < 2 Aspartate Amino Transf (AST/SGOT) 25U/L Alanine Aminotransferase (ALT/SGPT) 27U/L Alkaline Phosphatase 64U/L Total Protein 7.7G/DL Albumin 4.0G/DL Globulin 3.7G/DL Albumin/Globulin Ratio 1.1RATIO Lipase 39U/L Chemistry Specimen Hemolysis < 15 Medications Current ED Medications Sodium Chloride (Normal Saline IV) 1,000 ml @ 0 mls/hr Q0M ONCE IV Last administered on 05/31/16 11:09; Start 05/31/16 at 10:55; Stop 05/31/16 at 10:57; Status DC Progress Progress Patient resting comfortably without complaint Consult/PCP Consult/PCP : Physician Contacted: Dr Dunham Time Called: 12:20 Time of first response: 12:30 Type of discussion: Admit Discussion/PCP Discussion Details Discussed patient examination, History, Labs Comments Admit obs No CT at this time NPO SCD's NS 100 ml/hr Tele STANLEY ROY DO May 31, 2016 12:40
--- NOTE | 2016-05-31 12:55 | NUR ---
DEPART ED/ADMIT PT TAKEN PER WHEELCHAIR TO ROOM 139 WITHOUT DIFFICULITES. PT HAS PERSONAL BELONGINGS IN PERSONAL BAG ON HER LAP ALONG WITH A BLACK PURSE AND CANE. PT IS RELEASED TO RN WITHOUT DIFFICULTIES.
--- NOTE | 2016-05-31 12:55 | NUR ---
ADMIT PT TO RM 139 PER W/C AFTER REPORT RECEIVED FROM TATIANA CRUZ. PT ALERT AND ORIENTED. TRANSFERS TO BED WITH STAND BY ASSIST. PT DENIES PAIN, NAUSEA, OR DIZZINESS-HOWEVER STATES SHE IS LIGHT HEADED AT TIMES TODAY. VITALS OBTAINED AND STABLE CHARTED. O2 SAT 89% ROOM AIR. O2 SAT 92% WITH O2 AT 1L PER NC. PT ORIENTED TO CALL LIGHT. Rosendo PITTS APRN, IN TO SEE PT. BED ALARM ON FOR PT SAFETY. WILL CONTINUE TO MONITOR.
[2016-05-31] MEDS: PANTOPRAZOLE 40mg INJECTION IV SCH ×2 (14:15→21:39)
[2016-05-31] MEDS ORDERED: CARBOXYMETHYLCELLULOSE 1% BOTH EYES PRN (14:30)
[2016-05-31] MEDS ORDERED: LACRI-LUBE EYE OINT 3.5 G TUBE BOTH EYES PRN (14:30)
--- NOTE | 2016-05-31 14:45 | HPPDOC ---
LIZZY PITTS DIESEL CRANE OPERATOR 05/31/16 1318: HPI - Adult Date DATE: 05/31/16 TIME: 13:15 General Chief Complaint: Rectal bleeding History of Present Illness Julia Holt is an 80 y/o woman who was first seen in Dr. Clark' office today for bright red lower GI bleeding. She was evaluated and then sent to the ED for evaluation. Hgb was 14.5 (baseline 16), MCV was 103. Chemistries were unremarkable. She was hemodynamically stable, but BP did show a decreasing trend. She was given 500 mL NS bolus. She had 2 episodes of passing blood while in the ED which was heme positive. The ED physician contacted Dr. Dunham, and she was admitted to observation status. The patient was seen in her room on the medical floor. HPI and PMH was a bit challenging to obtain, as the patient often went off on a tangent about events that happened years ago. Nonetheless she was A&O x3. She did confirm "explosive " diarrhea that started this am. She states it was a large amount of bright red blood that filled the toilet, twice before she saw Dr. Clark. It appeared that there was sediment or seeds in it (she was able to collect a sample at home). She has been on ibuprofen followed by naproxen for years. She's been cutting back on the naproxen recently, and had planned to DC it entirely soon. She doesn 't take ASA b/c of a hx of gastric bleeding. No abdominal pain or cramping. No pain with BM. She denies n/v and had been eating and drinking well prior to today (she's been NPO all day). She has felt lightheaded and dizzy. She has a hx of passing out, and sleeps in a recliner b/c if she lies flat she will pass out. This has been worked up extensively in the past but never received a dx. She denies recent illness. She is concerned about proceeding with colonoscopy b/ c she doesn't tolerate anesthesia well. Past Medical History Past Medical History Patient's Medical History: (1) Pulmonary HTN (2) HTN (hypertension) (3) CKD (chronic kidney disease), stage III (4) Chronic low back pain (5) Allergic rhinitis (6) Depression (7) Gout (8) Osteoarthritis (9) Scarlet fever (10) Urge and stress incontinence (11) Dependence on nocturnal oxygen therapy (12) Morbid obesity with BMI of 40.0-44.9, adult Surgical History Patient's Surgical History: Echo 07/2015: EF 70%, Grade II Diastolic Dysfunction, Severely dilated left atrium, mild-moderate MR, mild MS, moderate TR, moderate PH B/L knee replacements 1993 Rt shoulder replacement Nasal endoscopy Jan 2016 Colonoscopy Lt foot sx Current Medications Home Meds Reported Medications Acetaminophen (Tylenol) 325 Mg Tablet, 650 MG PO QID 05/31/16 Propylene Glycol/Peg 400 (Systane Ultra 0.4-0.3% Eye Drp) 10 Ml Drops, 1 DROP BOTH EYES QID Y for DRY EYES 02/17/16 Carboxymethylcellulose Sodium (Restore Tears) 30 Ml Drops, 1 DROP BOTH EYES DAILY Y for PRN ORDERS 02/17/16 Mineral Oil/Petrolatum,White (Refresh P.m. Ointment) 3.5 Gm Oint...g., 1 APPLIC BOTH EYES HS Y for PRN ORDERS 02/17/16 Chlorpheniramine Maleate (Chlor-Trimeton) 4 Mg Tablet, 4 MG PO Q4H Y for PRN ORDERS 02/17/16 Fexofenadine HCl (Fexofenadine HCl) 180 Mg Tablet, 180 MG PO DAILY 02/17/16 Naproxen Sodium (Naproxen 220mg) 220 Mg Tablet, 220 MG PO BIDWM 02/17/16 Allopurinol (Allopurinol) 100 Mg Tablet, 100 MG PO DAILY 02/17/16 Valsartan (Valsartan) 160 Mg Tablet, 160 MG PO DAILY 02/17/16 Allergies: Coded Allergies: neomycin (Verified Allergy, Intermediate, RASH, 05/31/16) amino acids (Verified Allergy, Unknown, 05/31/16) chromium (Verified Allergy, Unknown, 05/31/16) ergot alkaloids (Verified Allergy, Unknown, 05/31/16) acetaminophen (Verified Adverse Reaction, Unknown, NAUSEA, 05/31/16) hydrocodone (Verified Adverse Reaction, Unknown, NAUSEA, 05/31/16) meperidine (Verified Adverse Reaction, Unknown, "CRAZY", 05/31/16) morphine (Verified Adverse Reaction, Unknown, "CRAZY", 4/3/17) Family History Family History: Positive for diabetes, HTN, and cancer. 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 Demarco Pulm: Dr. Alexis PCP: Dr. Clark Review of Systems Constitutional: REPORTS: dizziness, DENIES: appetite decrease, chills, fever Eyes Vision: DENIES: vision changes ENMT Sinuses: FOUND: rhinorrhea, NOT FOUND: congestion Mouth/Throat: DENIES: sore throat Cardiovascular DENIES: chest pain, dyspnea on exertion Vascular: DENIES: unilateral swelling Pulmonary Respiratory: DENIES: cough, dyspnea GI Upper Abdomen: DENIES: nausea, pain, vomiting Lower Abdomen: blood in stool, diarrhea, see HPI General: incontinence, DENIES: dysuria Musculoskeletal Lumbar: pain Integumentary Skin: DENIES: ulcers Neurological General: DENIES: memory disturbances, tingling, weakness Psychiatric Psychiatric: depression Hematologic/Lymphatic DENIES: anemia Allergic/Immunological DENIES: frequent infections All Other Systems All Other Systems: Reviewed (remainder of 10-point ROS Neg.) Physical Exam General General Nourishment: well nourished, well developed, obese Vital Signs Vital Signs Date Time Temp Pulse Resp B/P Pulse Ox O2 Delivery O2 Flow Rate FiO2 05/31/16 12:40 92 16 119/68 95 Nasal Cannula 3.00 05/31/16 10:28 97.9 Height (Feet): 5 Height (Inches): 5.00 Eyes Brief: FOUND: PERRL, NOT FOUND: scleral icterus ENMT Brief: NOT FOUND: mucosa moist (slightly dry), pharnyx erythema Neck Brief: NOT FOUND: adenopathy, nuchal rigidity Respiratory Auscultation: FOUND: normal, NOT FOUND: rales, rhonchi, wheezes Cardiovascular Auscultation: FOUND: S1, S2, regular Murmur: FOUND: systolic Peripheral Pulses: 2+: Dorasalis Pedis (L), Dorsalis Pedis (R), Posterior Tibial (L), Posterior Tibial (R), Radial (L), Radial (R) Edema: 0: Anasarca, Arm (L), Arm (R), Face Comments trace edema to b/l lower ext. Abdomen Inspection: NOT FOUND: distention Palpation: FOUND: soft, NOT FOUND: involuntary guarding, rebound, tender, voluntary guarding Auscultation: FOUND: normo active Lymphatic (brief) Lymphatic Brief: NOT FOUND: adenopathy Musculoskeletal (brief) Musculoskeletal Brief: FOUND: deformity (left hand from carpal fx; tophi noted to distal left index finger), NOT FOUND: tenderness Integumentary (brief) Integumentary Brief: FOUND: dry, pink, warm Integumentary General: FOUND: dry, warm Color: FOUND: pink Neurologic (brief) Neurological Brief: FOUND: cranial 2-12 intact (grossly) Neurologic GCS Eye Opening: (4)Spontaneous GCS Verbal: (5)Oriented GCS Motor: (6)Obeys Commands RN Documented GCS Total: 15 Psychiatric (brief) FOUND: alert, attentive, normal affect, oriented Laboratory Laboratory Tests Test 05/31/16 11:08 05/31/16 13:05 White Blood Count 7.0T/MM3 Red Blood Count 4.37M/MM3 Hemoglobin 14.5GM/DL 14.0GM/DL Hematocrit 45.0% 43.0% Mean Corpuscular Volume 103.0UM3 Mean Corpuscular Hemoglobin 33.2UUG Mean Corpuscular Hemoglobin Concent 32.2GM/DL RDW Standard Deviation 54.5FL Platelet Count 170T/MM3 Mean Platelet Volume 10.6UM3 Immature Granulocyte % (Auto) 0.4% Neutrophils (%) (Auto) 66.5% Lymphocytes (%) (Auto) 21.6% Monocytes (%) (Auto) 8.0% Eosinophils (%) (Auto) 3.1% Basophils (%) (Auto) 0.4% Absolute Immature Granulocyte (auto 0.03T/MM3 Absolute Neutrophils (auto) 4.6T/MM3 Absolute Lymphocytes (auto) 1.5T/MM3 Absolute Monocytes (auto) 0.6T/MM3 Absolute Eosinophils (auto) 0.2T/MM3 Absolute Basophils (auto) 0.0T/MM3 Turbidity < 20 Sodium Level 143MEQ/L Potassium Level 4.7MEQ/L Chloride Level 104MEQ/L Carbon Dioxide Level 29MEQ/L Anion Gap 10MEQ/L Blood Urea Nitrogen 25.0MG/DL Creatinine 0.8MG/DL Glomerular Filtration Rate Calc 69 BUN/Creatinine Ratio 31RATIO Glucose Level 124MG/DL Calculated Osmolality 280MOSM/KG Calcium Level 9.4MG/DL Total Bilirubin 0.80MG/DL Icterus Index < 2 Aspartate Amino Transf (AST/SGOT) 25U/L Alanine Aminotransferase (ALT/SGPT) 27U/L Alkaline Phosphatase 64U/L Total Protein 7.7G/DL Albumin 4.0G/DL Globulin 3.7G/DL Albumin/Globulin Ratio 1.1RATIO Lipase 39U/L Chemistry Specimen Hemolysis < 15 Assessment & Plan Problems: (1) GI bleeding Status: Acute Qualifiers: GI bleed type/associated pathology: unspecified gastrointestinal hemorrhage type Qualified Codes: K92.2 - Gastrointestinal hemorrhage, unspecified (2) Macrocytosis (3) Pulmonary HTN Assessment & Plan: Echo 07/2015: EF 70%, Grade II Diastolic Dysfunction, Severely dilated left atrium, mild-moderate MR, mild MS, moderate TR, moderate PH (4) Gout Status: Chronic (5) Urge and stress incontinence Status: Chronic (6) Allergic rhinitis Status: Chronic (7) HTN (hypertension) Status: Chronic (8) Chronic low back pain Status: Chronic (9) CKD (chronic kidney disease), stage III Status: Chronic (10) Morbid obesity with BMI of 40.0-44.9, adult Status: Chronic (11) Dependence on nocturnal oxygen therapy Status: Chronic Plan/Intensity of Service Admit, observation status under Dr. Dunham. Code status: Full code. 1. Acute GI/rectal bleeding. - Trend hgb. - Protonix IV BID. - Consult Dr. Hernandez. - Stop naproxen. - NPO status. - Macrocytosis - check iron studies and B12 2. Lightheadedness/dizziness - up with assist - IVF: NS at 100 ml/hr. - check TSH, prealbumin 3. Chronic conditions - HTN - typically takes Valsartan, but with decreasing BP trends will hold for now. - Gout - allopurinol - Nocturnal oxygen. Assessment and plan discussed with Dr. Dunham. DVT Prophylaxis: SCD'S Code Status Full Code Hospital Course Summary Disclaimer The hospital course summary below is not to be considered part of the above Progress Note. Hospital Course Summary 05/31/16 Admit, observation status under Dr. Dunham. Code status: Full code. 1. Acute GI/rectal bleeding. - Trend hgb. - Protonix IV BID. - Consult Dr. Hernandez. - Stop naproxen. - NPO status. - Macrocytosis - check iron studies and B12 2. Lightheadedness/dizziness - up with assist - IVF: NS at 100 ml/hr. - check TSH, prealbumin 3. Chronic conditions - HTN - typically takes Valsartan, but with decreasing BP trends will hold for now. - Gout - allopurinol - Nocturnal oxygen. KAYA DUNHAM MD 05/31/16 2605: Past Medical History Current Medications Home Meds Reported Medications Acetaminophen (Tylenol) 325 Mg Tablet, 650 MG PO QID 05/31/16 Propylene Glycol/Peg 400 (Systane Ultra 0.4-0.3% Eye Drp) 10 Ml Drops, 1 DROP BOTH EYES QID Y for DRY EYES 02/17/16 Carboxymethylcellulose Sodium (Restore Tears) 30 Ml Drops, 1 DROP BOTH EYES DAILY Y for PRN ORDERS 02/17/16 Mineral Oil/Petrolatum,White (Refresh P.m. Ointment) 3.5 Gm Oint...g., 1 APPLIC BOTH EYES HS Y for PRN ORDERS 02/17/16 Chlorpheniramine Maleate (Chlor-Trimeton) 4 Mg Tablet, 4 MG PO Q4H Y for PRN ORDERS 02/17/16 Fexofenadine HCl (Fexofenadine HCl) 180 Mg Tablet, 180 MG PO DAILY 02/17/16 Naproxen Sodium (Naproxen 220mg) 220 Mg Tablet, 220 MG PO BIDWM 02/17/16 Allopurinol (Allopurinol) 100 Mg Tablet, 100 MG PO DAILY 02/17/16 Valsartan (Valsartan) 160 Mg Tablet, 160 MG PO DAILY 02/17/16 Allergies: Coded Allergies: neomycin (Verified Allergy, Intermediate, RASH, 05/31/16) amino acids (Verified Allergy, Unknown, 05/31/16) chromium (Verified Allergy, Unknown, 05/31/16) ergot alkaloids (Verified Allergy, Unknown, 05/31/16) acetaminophen (Verified Adverse Reaction, Unknown, NAUSEA, 05/31/16) hydrocodone (Verified Adverse Reaction, Unknown, NAUSEA, 05/31/16) meperidine (Verified Adverse Reaction, Unknown, "CRAZY", 05/31/16) morphine (Verified Adverse Reaction, Unknown, "CRAZY", 05/31/16) Assessment & Plan Problems: (1) GI bleeding Status: Acute Qualifiers: GI bleed type/associated pathology: unspecified gastrointestinal hemorrhage type Qualified Codes: K92.2 - Gastrointestinal hemorrhage, unspecified (2) Macrocytosis (3) HTN (hypertension) Status: Chronic (4) Pulmonary HTN Assessment & Plan: Echo 07/2015: EF 70%, Grade II Diastolic Dysfunction, Severely dilated left atrium, mild-moderate MR, mild MS, moderate TR, moderate PH (5) Gout Status: Chronic (6) Urge and stress incontinence Status: Chronic (7) Allergic rhinitis Status: Chronic (8) Chronic low back pain Status: Chronic (9) CKD (chronic kidney disease), stage III Status: Chronic (10) Dependence on nocturnal oxygen therapy Status: Chronic (11) Morbid obesity with BMI of 40.0-44.9, adult Status: Chronic Plan/Intensity of Service Have independently interviewed and examined pt. Chart reviewed. Case discussed with ED physician, Dr Hernandez and my DIESEL CRANE OPERATOR. Care plan developed with my supervision; agree with above. CC: Passing bring blood per rectum. HPI: 80 y/o WF work this morning with fecal urgency-passes a copious amount of bright blood rectally. Had multiple episodes at home. Noted fecal urgency to have stool. No pain passing stool. No nausea or ab discomfort. Not on blood thinners, but does use NSAID for OA pain. Breathing stable. No chest pain. Notes she feels more unsteady when up than typically. Presents to ED for evaluation. HR in 100 range. Initial BP elevated in the 160s, but did decreased. IVF given. Pt typed and screen. HGB 14.5 on arrival. In light of acute GI bleeding, Dr Dunham notified and pt placed in OBS status for monitoring and support. Dr Hernandez consulted for surgical evaluation. Lungs: clear CV: regular AB: soft obese nt/nd BS decreased MSE: awake alert appropriate Plan: OBS, IVF, IV Protonix BID for upper GI protection due to NSAID use, monitor hemoglobin-transfuse as indicated, hold NSAIDS and antihypertensives, Sx consult for further evaluation of bleeding, Check iron/ferritin/B12, SCD for DVT prevention. LIZZY PITTS APRN May 31, 2016 13:18 KAYA DUNHAM MD May 31, 2016 17:35
--- NOTE | 2016-05-31 15:00 | NUR ---
STATUS PT HAS LARGE LIQUID, BLOODY STOOL. THIS IS REPORTED TO Rosendo PITTS APRN. BP 124/70. HR 83. O2 SAT 94% AT 1L. WILL CONTINUE TO MONITOR.
[2016-05-31] MEDS ORDERED: BENZOCAINE 20% Top. Anesth. SPRAY UD ONE (15:04)
[2016-05-31] MEDS ORDERED: LIDOCAINE VISCOUS 2% Oral Soln 15ml UD ONE (15:04)
[2016-05-31 15:13] LABS: ABSOLUTE RETICS # 0.0615 T/MM3 (0.0300-0.0900); RETICULOCYTE % 1.5 % (0.6-1.7); RETICULOCYTE HGB 37.7 PG (30.8-36.6)
--- NOTE | 2016-05-31 15:20 | CONSPD ---
Consultation Info Date DATE: 05/31/16 TIME: 15:13 Date of Consultation: May 31, 2016 HPI - Adult Date DATE: 05/31/16 TIME: 15:13 General Chief Complaint: Rectal bleeding History of Present Illness Per Dr. Hernandez Past Medical History Past Medical History Patient's Medical History: (1) Pulmonary HTN (2) HTN (hypertension) (3) CKD (chronic kidney disease), stage III (4) Chronic low back pain (5) Allergic rhinitis (6) Depression (7) Gout (8) Osteoarthritis (9) Scarlet fever (10) Urge and stress incontinence (11) Dependence on nocturnal oxygen therapy (12) Morbid obesity with BMI of 40.0-44.9, adult (13) History of tuberculosis (14) History of scarlet fever Surgical History Patient's Surgical History: Echo 07/2015: EF 70%, Grade II Diastolic Dysfunction, Severely dilated left atrium, mild-moderate MR, mild MS, moderate TR, moderate PH B/L knee replacements 1993 Rt shoulder replacement Nasal endoscopy Jan 2016 Colonoscopy Lt foot sx Current Medications Home Meds Reported Medications Acetaminophen (Tylenol) 325 Mg Tablet, 650 MG PO QID 05/31/16 Propylene Glycol/Peg 400 (Systane Ultra 0.4-0.3% Eye Drp) 10 Ml Drops, 1 DROP BOTH EYES QID Y for DRY EYES 02/17/16 Carboxymethylcellulose Sodium (Restore Tears) 30 Ml Drops, 1 DROP BOTH EYES DAILY Y for PRN ORDERS 02/17/16 Mineral Oil/Petrolatum,White (Refresh P.m. Ointment) 3.5 Gm Oint...g., 1 APPLIC BOTH EYES HS Y for PRN ORDERS 02/17/16 Chlorpheniramine Maleate (Chlor-Trimeton) 4 Mg Tablet, 4 MG PO Q4H Y for PRN ORDERS 02/17/16 Fexofenadine HCl (Fexofenadine HCl) 180 Mg Tablet, 180 MG PO DAILY 02/17/16 Naproxen Sodium (Naproxen 220mg) 220 Mg Tablet, 220 MG PO BIDWM 02/17/16 Allopurinol (Allopurinol) 100 Mg Tablet, 100 MG PO DAILY 02/17/16 Valsartan (Valsartan) 160 Mg Tablet, 160 MG PO DAILY 02/17/16 Allergies: Coded Allergies: neomycin (Verified Allergy, Intermediate, RASH, 4/3/17) amino acids (Verified Allergy, Unknown, 05/31/16) chromium (Verified Allergy, Unknown, 05/31/16) ergot alkaloids (Verified Allergy, Unknown, 05/31/16) acetaminophen (Verified Adverse Reaction, Unknown, NAUSEA, 05/31/16) hydrocodone (Verified Adverse Reaction, Unknown, NAUSEA, 05/31/16) meperidine (Verified Adverse Reaction, Unknown, "CRAZY", 05/31/16) morphine (Verified Adverse Reaction, Unknown, "CRAZY", 05/31/16) Family History Family History: father - DM, HTN, Pancreatic cancer Mother - DM, HTN, CHF Sister - HTN Social History Smoking Status: Never smoker Does patient use chewing tobac: No Second Hand Exposure: No Substance Use Type: does not use Alcohol Intake: none Marital Status: Housing: house Service: No Occupational Hazard: No 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; 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: 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 DPOA for Healthcare Only ([employer] [phone]), Yes Full Code GS Review of Systems Respiratory REPORTS difficulty breathing, REPORTS sleep apnea (oxygen at night) Gastrointestional REPORTS diarrhea, REPORTS blood in stools Musculoskeletal REPORTS joint pain Neurological REPORTS other (dizziness) Psychiatric REPORTS depression 10-point Review of Systems otherwise negative except HPI GS Physical Exam Vital Signs Date Time Temp Pulse Resp B/P Pulse Ox O2 Delivery O2 Flow Rate FiO2 05/31/16 14:57 83 124/70 94 Nasal Cannula 1.00 05/31/16 13:15 96.4 20 Height (Feet): 5 Height (Inches): 5.00 Weight (Kilograms): 118.500 BMI 43.5 Laboratory Laboratory Tests 05/31/16 11:08 Laboratory Tests 05/31/16 11:08 05/31/16 13:05 MELCHRO BLACK APRN, CWS May 31, 2016 15:18
[2016-05-31 15:25] LABS: INR 1.08 (0.76-1.04); PROTHROMBIN TIME 11.8 SEC (9.31-12.49)
--- NOTE | 2016-05-31 15:25 | NUR ---
TO SURGERY PT TO SURGERY PER W/C.
[2016-05-31] MEDS ORDERED: PROPOFOL 200mg 20 ML IV ONE (15:52)
[2016-05-31] MEDS ORDERED: MIDAZOLAM 2mg/2ml INJECTION ONE (15:52)
--- NOTE | 2016-05-31 16:22 | GSPOSTPN ---
Endoscopy Procedure Procedure Surgeon: David Anesthesia: MAC Procedure: EGD Diagnosis Postop EGD Diagnosis Comments duodenitis Complications Complications Endoscopy Complications: None Estimated Blood Loss See Anesthesia Record. Vital Signs See Anesthesia and PACU record. MICHAEL DAUGHERTY MD, FACS, CWS May 31, 2016 16:22
--- NOTE | 2016-05-31 16:49 | ANESPREOP ---
Anesthesia Record Date and Time DATE: 05/31/16 TIME: 1529 Proposed Surgical Procedure Allergies: Coded Allergies: neomycin (Verified Allergy, Intermediate, RASH, 05/31/16) amino acids (Verified Allergy, Unknown, 05/31/16) chromium (Verified Allergy, Unknown, 05/31/16) ergot alkaloids (Verified Allergy, Unknown, 05/31/16) acetaminophen (Verified Adverse Reaction, Unknown, NAUSEA, 05/31/16) hydrocodone (Verified Adverse Reaction, Unknown, NAUSEA, 05/31/16) meperidine (Verified Adverse Reaction, Unknown, "CRAZY", 05/31/16) morphine (Verified Adverse Reaction, Unknown, "CRAZY", 05/31/16) Ht/Wt/BMI Height: 5 ' 5.00 " Weight: 118.500 kg BMI: 43.5 kg/m2 Vital Signs Date Time Temp Pulse Resp B/P Pulse Ox O2 Delivery O2 Flow Rate FiO2 05/31/16 16:30 92 16 100/62 92 05/31/16 16:16 97.6 Room Air 05/31/16 14:57 1.00 Medications Inpatient Medications Current Medications Medications (Trade) Dose Ordered Sig/Jose G Start Time Stop Time Status Last Admin Dose Admin Pantoprazole Sodium (Protonix Iv) 40 mg BID 05/31/16 13:00 05/31/16 14:15 40 MG Acetaminophen (Tylenol Regular Strength) 650 mg QID 05/31/16 17:00 Allopurinol (ZYLOPRIM 100 mg) 100 mg DAILY 06/01/16 09:00 Artificial Tears (Refresh Celluvisc Drops) 1 drop DAILY PRN 05/31/16 14:30 Artificial Tears (Lacrilube) 1 applic HS PRN 05/31/16 14:30 Polyethyl Glycol/ Propylene Glycol (Systane Eye Drops) 1 drop QID PRN 05/31/16 14:30 Acetaminophen (Tylenol) 325 Mg Tablet, 650 MG PO QID, (Reported) Last Taken: on 05/30/16 1700 Allopurinol (Allopurinol) 100 Mg Tablet, 100 MG PO DAILY, (Reported) Last Taken: on 05/30/16 0800 Carboxymethylcellulose Sodium (Restore Tears) 30 Ml Drops, 1 DROP BOTH EYES DAILY PRN for PRN ORDERS, (Reported) Last Taken: on Unknown Date & Time Chlorpheniramine Maleate (Chlor-Trimeton ) 4 Mg Tablet, 4 MG PO Q4H PRN for PRN ORDERS, (Reported) Last Taken: on Unknown Date & Time Fexofenadine HCl (Fexofenadine HCl) 180 Mg Tablet, 180 MG PO DAILY, (Reported) Last Taken: on 05/30/16 1700 Mineral Oil/Petrolatum,White (Refresh P.m. Ointment) 3.5 Gm Oint...g., 1 APPLIC BOTH EYES HS PRN for PRN ORDERS, (Reported) Last Taken: on Unknown Date & Time Naproxen Sodium (Naproxen 220mg) 220 Mg Tablet, 220 MG PO BIDWM, (Reported) Last Taken: on 05/30/16 1700 Propylene Glycol/Peg 400 (Systane Ultra 0.4-0.3 % Eye Drp) 10 Ml Drops, 1 DROP BOTH EYES QID PRN for DRY EYES, (Reported) Last Taken: on Unknown Date & Time Valsartan (Valsartan) 160 Mg Tablet, 160 MG PO DAILY, (Reported) Last Taken: on 05/30/16 0800 Currently on Beta Rubina: No Medical/Surgical History Anesthesia PMH: Reports: *Angina, *Hypertension (pulmonary HTN), Sleep Apnea ( NO CPAP), Denies: *ND, Asthma, Blood Transfusion Reac, CHF, COPD, CVA/Stroke/TIA , Cancer, Glaucoma, Hepatitis, Rheumatic Fever, Seizures Smoking Status: Never smoker Use Chewing Tobacco?: No Second Hand Exposure: No Substance Use Type: does not use Last Drink: hours (ago) (8) Past Surgical History Orthopedic Surgeries: Yes - BILATERAL KNEES REPLACED/R SHOULDER REPLACED/LEFT FOOT INSTEP CLEANED ARTHR Abdominal Surgeries: Genitourinary Surgeries: Cardiac Surgeries: Endocrine Surgeries: Reproductive Surgeries: Neurological Surgeries: Ear Surgeries: Nose Surgeries: Throat Surgeries: Other Surgeries: Yes - STRAIGHTENED TWO TOES-LEFT FOOT/CATARACTS REMOVED BILATERALLY/TONSILS OUT Anesthesia Adverse Reactions: FOUND other ("very sensitive to anesthesia, blood pressure drops a lot, lingers for a long time") Family Hx of Anesthesia Advers: none Hx of Motion Sickness: No Pertinent Findings Laboratory Tests 05/31/16 11:08 05/31/16 13:05 Test 05/31/16 11:08 Prothromb Time International Ratio 1.08 (0.76-1.04) EKG Rhythm: Sinus Rhythm Physical Exam Respiratory: Lungs clear Cardiovascular: FOUND Regular rate, rhythm Airway Assessment Mallampati Score: II TMD: 3 Fingerbreadths Neck Extension: Fair Overall Assessment: May Be Diff Mask Vent., May Be Diff Intubation ASA: 3 Plan Anesthesia Plan: MAC Discussion Discussed risks/options/alternatives of anesthesia and questions answered. Patient consents. Nursing pain assessment noted. Attestation Statement Prior to the delivery of any anesthetic medication, I examined the patient, developed the plan, obtained the patient's consent and discussed the risk and benefits of the procedure with the patient/guardian. ABILIO HOLLAND IMPORT COORDINATOR May 31, 2016 16:49
--- NOTE | 2016-05-31 16:50 | ANESPO ---
Post-Op Note Date 05/31/16 Time: 16:50 Status Pt Participated in Evaluation: Pt participated in person Vital Signs Date Time Temp Pulse Resp B/P Pulse Ox O2 Delivery O2 Flow Rate FiO2 05/31/16 16:30 92 16 100/62 92 05/31/16 16:16 97.6 Room Air 05/31/16 14:57 1.00 Respiratory Function: Airway patent Cardiovascular Function: Regular pulse Mental Status: Alert/oriented Pain Level Intensity: 0 Hydration: IV infusing Complications during Recovery None apparent Follow-Up Instructions Instructions Per Surgeon ABILIO HOLLAND CRNA May 31, 2016 16:50
--- NOTE | 2016-05-31 16:52 | NUR ---
TO ROOM PT BACK TO ROOM AFTER REPORT RECEIVED FROM ATTIANA HENDERSON. PT TO BATHROOM WITH ASSIST. HAS LARGE LIQUID BLOODY STOOL. WHEN PT BACK TO BED, POST OP VITALS INITIATED. PT DENIES PAIN OR SHORTNESS OF BREATH. WILL CONTINUE TO MONITOR.
[2016-05-31] MEDS ORDERED: ACETAMINOPHEN 325 MG TABLET PO SCH (17:00)
[2016-05-31 17:12] LABS: HCT - HEMATOCRIT 36.7 % (36-46); HGB - HEMOGLOBIN 11.9 GM/DL (12-16)
--- NOTE | 2016-05-31 17:15 | CONSF ---
DATE OF SERVICE 05/31/2016 FINDINGS Mrs. Holt is an 80-year-old female who I was asked to see today as a new patient as a result of her history for rectal bleeding. Patient states that she had awaken earlier this morning and felt as if she needed to "pass some gas." Patient states that she got up and went to the bathroom, and to her surprise she began to pass a fair amount of bright red blood per rectum. She described this as a large amount. Patient states that she had a couple of additional episodes of bleeding and became concerned. She states that she got an "old ice cream pail" that she had been using to help with cleaning. She states that she did pass a fair amount of blood into this-ice cream pail and brought the pail into the emergency room for further evaluation. Patient states that since admission she has had a few additional bloody stools. She denies any element of abdominal pain or discomfort. Patient states that she has not had bleeding like this in the past. Patient states that she has undergone a colonoscopy in the past as well as a prior EGD. She states that she has had problems with "diverticulitis" in the past. 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 The patient has been on naproxen for a number of years. Recently patient states that her primary care physician has tried to decrease her dose of naproxen. Past Medical History, Past Surgical History, Medications, Allergies, Social History, Family History, and Review of Systems performed by my nurse practitioner, Magnus Mckeon. PHYSICAL EXAMINATION GENERAL: Mrs. Holt is an 80-year-old female who currently does not appear to be in acute distress. VITAL SIGNS: Temperature 96.4, pulse 92, respirations 20, blood pressure 111/75, SaO2 92% on 1 liter per nasal cannula. HEENT: Normocephalic. Pupils equally round, react to light and accommodation. NECK: Supple without lymphadenopathy. CHEST: Clear to auscultation bilaterally. HEART: Regular rate and rhythm. Normal S1 and S2 without gallops, murmurs or clicks. ABDOMEN: Visualization of the abdomen does reveal it to be somewhat protuberant. The patient does have a component of some obesity. Palpation of the abdomen revealed it to be soft and completely nontender throughout. There was no evidence for hepatomegaly or other abnormal masses. EXTREMITIES: Without clubbing, cyanosis, or edema. NEURO: Cranial nerves II-XII grossly intact. Patient is without focal motor or sensory deficits. LABORATORY/RADIOGRAPH EVALUATION Patient had a CBC upon admission, and her hemoglobin is 14.5. Hemoglobin obtained later this afternoon reveals it to be overall stable at 14.0. CMP was obtained, and her BUN was slightly elevated at 25.0 indicative of a GI bleed. ASSESSMENT An 80-year-old female with onset of rectal bleeding of uncertain etiology. PLAN I do agree with current management of this patient. She has been typed and screened since admission. She has been treated empirically for a peptic ulcer disease and is on Protonix 40 mg IV b.i.d. I agree with serial hemoglobins. I informed the patient that it is my clinical intuition that she is likely suffering from a diverticular bleed given her history for bright red blood per rectum. Nonetheless, with her history of being on naproxen for a number of years it is possible that she very well could have a bleeding duodenal ulcer that is also presenting with bright red blood per rectum. It was my recommendation that today we go ahead and proceed with esophagogastroduodenoscopy to rule out a potential upper GI source as the underlying etiology for her bleeding. Patient has been n.p.o. throughout today. I did discuss with the patient what an EGD entailed and its associated risk, which included but was not inclusive of bleeding and/or perforation. Patient understood and wished to proceed with an EGD at this time. MTDD
--- NOTE | 2016-05-31 18:00 | NUR ---
DISCHARGE CRITERIA PT MEETS DISCHARGE CRITERIA BUT CONTINUES TO HAVE BLOODY STOOLS. PT NOT BEING DISCHARGED AT THIS TIME.
--- NOTE | 2016-05-31 18:30 | NUR ---
STATUS DR. MEZA IN TO SEE PT. PT ADVANCED TO CLEAR LIQUID DIET. PT TOLERATES CLEARS WITHOUT NAUSEA. VITALS STABLE CHARTED. PT CONTINUES TO DENY PAIN. WILL MONITOR.
[2016-05-31] MEDS: NORMAL SALINE 1,000 ML IV SCH (19:30)
--- NOTE | 2016-05-31 20:00 | NUR ---
H & H WAS SCHEDULED FOR 2199, VO TO OBTAIN NOW AFTER PT HAD ANOTHER LARGE BRIGHT RED BM AND IS C/O OF INCREASED FATIGUE, "LIGHTHEADEDNESS" AND FEELING LIKE SHE MAY "PASS OUT", PT IS PALE, PLACED ON 2L O2 NC FOR COMFORT, BP 102/63 WITH HR 80s. TALKED WITH PT AND DR AFTER RESULTS OBTAINED, ORDERS RECEIVED.
[2016-05-31 20:27] LABS: HCT - HEMATOCRIT 30.5 % (36-46); HGB - HEMOGLOBIN 9.9 GM/DL (12-16)
[2016-06-01] VITALS (10 sets, daily range): BP systolic 100–144; BP diastolic 52–67; PULSE 74–82; RESP 12–18; TEMP 96.1–97.8; O2SAT 87–96
[2016-06-01 00:15] LABS: HCT - HEMATOCRIT 29.2 % (36-46); HGB - HEMOGLOBIN 9.4 GM/DL (12-16)
[2016-06-01 05:09] LABS: BASOPHILS % (AUTO) 0.6 % (0-2); EOSINOPHILS # (AUTO) 0.1 T/MM3 (0-0.5); EOSINOPHILS % (AUTO) 2.1 % (0-4); HCT - HEMATOCRIT 28.4 % (36-46); HGB - HEMOGLOBIN 8.9 GM/DL (12-16); IMMATURE GRANULOCYTE # (AUTO) 0.02 T/MM3 (0.00-0.03); IMMATURE GRANULOCYTE % (AUTO) 0.3 % (0.0-0.5); LYMPHOCYTES # (AUTO) 1.5 T/MM3 (1-4.8); MEAN CORPUSCULAR HGB 32.7 UUG (26-34); MEAN CORPUSCULAR HGB CONC(MCHC 31.3 GM/DL (31-37); MEAN CORPUSCULAR VOLUME 104.4 UM3 (80-100); MONOCYTES # (AUTO) 0.6 T/MM3 (0-0.8); MONOCYTES % (AUTO) 9.1 % (0-9.0); NEUTROPHILS #(AUTO)-ABSOLUTE 4.3 T/MM3 (1.8-7.7); NEUTROPHILS % (AUTO) 64.9 % (33-66); RED BLOOD COUNT 2.72 M/MM3 (4.00-5.20); WBC - WHITE BLOOD COUNT 6.6 T/MM3 (4.5-11.0)
[2016-06-01 05:22] LABS: ANION GAP 4 MEQ/L (5-15); BUN/CREATININE RATIO 26 RATIO (6-26); CALCIUM 8.1 MG/DL (8.4-10.2); CHLORIDE 108 MEQ/L (98-107); CO2 - CARBON DIOXIDE 29 MEQ/L (22-30); CREATININE 0.9 MG/DL (0.7-1.2); GLOMERULAR FILTRATION RATE 60; GLUCOSE 104 MG/DL (65-110); POTASSIUM 4.7 MEQ/L (3.6-5); SODIUM 141 MEQ/L (134-144)
[2016-06-01] MEDS: NORMAL SALINE 1,000 ML IV SCH ×3 (05:30→17:35)
--- NOTE | 2016-06-01 08:00 | NUR ---
Status Pt alert and oriented. Pt ambulates to bathroom with assist x2 and use of gait belt and cane. Pt assisted with bath while in bathroom. When ambulates back to the chair pt c/o's feeling light-headed. Vitals stable this morning as charted. O2 sat in the high 90's with O2 at 3L per NC. Pt requests O2 be left off while goes to the bathroom. When back in chair O2 sats continue in the 90's on O2. Will leave O2 on the next time pt goes to bathroom to see if this helps with light-headed feeling. Pt denies pain except for with movement of shoulders-reports she has had replacement/surgery on both shoulders. Pt denies the need for pain medication at this time. Pt sits up in chair and orders breakfast. Will continue to monitor.
[2016-06-01 08:08] LABS: BLOOD, URINE TRACE-INTACT (NEGATIVE); COLOR,URINE YELLOW (YELLOW); LEUKOCYTE ESTERASE ,URINE NEGATIVE (NEGATIVE); NITRITE,URINE NEGATIVE (NEGATIVE); UROBILINOGEN,URINE 0.2 EU/DL (NORMAL)
[2016-06-01] MEDS: PANTOPRAZOLE 40mg INJECTION IV SCH ×2 (08:56→21:39)
[2016-06-01] MEDS: ALLOPURINOL 100 MG TABLET PO SCH (08:56)
--- NOTE | 2016-06-01 09:42 | OPNOTEF ---
DATE OF SERVICE 05/31/2016 SURGEON Anival Hernandez MD PREOPERATIVE DIAGNOSIS Rectal bleeding, rule out peptic ulcer disease. POSTOPERATIVE DIAGNOSIS Rectal bleeding, rule out peptic ulcer disease, moderate duodenitis. PROCEDURE Esophagogastroduodenoscopy. ANESTHESIA IV sedation and local BRIEF HISTORY/INDICATIONS Mrs. Holt is an 80-year-old female who has had a longstanding history for taking nonsteroidals/naproxen. The patient presented today as a result of several episodes of rectal bleeding which occurred earlier this morning. To further evaluate the potential etiology of her rectal bleeding and secondary to her history for significant nonsteroidal use it was elected that we would proceed initially with esophagogastroduodenoscopy. For completeness, please refer to consultation note included in the patient's chart. FINDINGS Upon upper endoscopy, the esophagus, stomach and duodenum were found to be essentially within normal limits. There was no evidence for blood upon the surface of the mucosa within the esophagus, stomach or duodenum. The mucosa within the first and second portions of the duodenum was slightly erythematous in nature. Otherwise esophagus, stomach and duodenum were found to be within normal limits. DESCRIPTION OF PROCEDURE After informed consent was obtained, patient was brought to the endoscopy suite and placed on the table in the left lateral decubitus position. The patient subsequently underwent conscious IV sedation by the nurse political worker per my request. Formal time-out was then completed. Next, an Olympus gastroscope was inserted in the oral hypopharynx and subsequently the esophagus under direct visualization. Gastroscope was advanced through the esophagus, stomach, pylorus, duodenal bulb, to the second portion of the duodenum. Scope was then slowly withdrawn. The duodenal mucosa was mildly to moderately erythematous in nature. There was however no evidence for brad ulcerations. There was no evidence for blood upon the surface of the mucosa. Gastroscope was withdrawn back to prepyloric region and antrum. Again no evidence for blood was present. Mucosa was carefully inspected and found to be without noted abnormalities. J-maneuver was then performed. Cardia and fundus were within normal limits. Scope was allowed to straighten and slowly withdrawn. The remaining corpus of the stomach was well visualized and again without noted abnormalities. Scope was withdrawn back to the level of the diaphragm. Squamocolumnar junction was located just above the level of the diaphragm. It was well demarcated with no endoscopic evidence for Schumacher's metaplasia. Gastroscope was then continued to be slowly withdrawn. The remaining esophageal mucosa was found to be within normal limits. The patient tolerated the procedure without difficulty and was sent back to the preop area in stable condition. KRISTINA
--- NOTE | 2016-06-01 10:01 | NUR ---
CM CM IN TO VISIT PT. CM EXPLAINED ROLE AND PROVIDED CONTACT INFORMATION. PT LIVES HOME ALONE AND DENIES DC NEEDS. PT AWARE TO CALL CM SHOULD NEEDS ARISE.
[2016-06-01 10:30] LABS: HCT - HEMATOCRIT 28.8 % (36-46); HGB - HEMOGLOBIN 9.3 GM/DL (12-16)
--- NOTE | 2016-06-01 13:22 | PNPDOC ---
LIZZY PITTS BONDERITE OPERATOR 06/01/16 1321: Subjective Date DATE: 06/01/16 TIME: 13:13 Subjective Julia is feeling much better today. She had one episode of dizziness while standing at the sink yesterday but no problems today. She hasn't had any bowel movements, but has been passing flatus - no blood noted with passing flatus, which is an improvement. She tolerated anesthesia well; and would feel comfortable with proceeding with colonoscopy if Dr. Hernandez recommends it ( previously she was very worried about anesthesia). She would like to try a full liquid diet, if approved by sx. She denies CP or SOA. No abdominal pain or nausea. Objective Vital Signs Vital signs Vital Signs Date Time Temp Pulse Resp B/P Pulse Ox O2 Delivery O2 Flow Rate FiO2 06/01/16 12:29 96.8 81 12 100/52 94 Nasal Cannula 1.00 Height (Feet): 5 Height (Inches): 5.00 Weight (Kilograms): 120.100 General General Appearance: Alert, Orientated x 3, Well Nourished, Well Developed, No Acute Distress Eyes (Brief) Eyes: FOUND: PERRL, NOT FOUND: scleral icterus ENMT (Brief) ENMT: FOUND: mucosa moist, NOT FOUND: pharnyx erythema Respiratory (Brief) Respiratory: FOUND: rales (fine crackles R base) Cardiovascular (Brief) Cardiac: FOUND: murmur, regular rate, regular rhythm Abdomen (Brief) Abdominal: FOUND: BS normo active x4, soft, NOT FOUND: distended Extremities (Brief) Extremity : Side: Bilateral Extremity: leg Extremity Finding: FOUND: edema Musculoskeletal (Brief) Musculoskeletal: NOT FOUND: tenderness Integumentary (Brief) Integumentary: FOUND: dry, warm Psychiatric (Brief) Psychiatric: FOUND: alert, attentive, normal affect, oriented Laboratory Laboratory Laboratory Tests 05/31/16 11:08 06/01/16 04:29 Laboratory Tests 05/31/16 11:08 05/31/16 13:05 05/31/16 17:06 05/31/16 20:14 05/31/16 23:50 06/01/16 04:29 06/01/16 10:20 Assessment & Plan Problems: (1) Acute blood loss anemia Status: Acute (2) GI bleeding Status: Acute Qualifiers: GI bleed type/associated pathology: unspecified gastrointestinal hemorrhage type Qualified Codes: K92.2 - Gastrointestinal hemorrhage, unspecified Assessment & Plan: EGD on 05/31/16 Moderate duodenitis (3) Macrocytosis (4) HTN (hypertension) Status: Chronic (5) Pulmonary HTN Assessment & Plan: Echo 07/2015: EF 70%, Grade II Diastolic Dysfunction, Severely dilated left atrium, mild-moderate MR, mild MS, moderate TR, moderate PH (6) Gout Status: Chronic (7) Urge and stress incontinence Status: Chronic (8) Allergic rhinitis Status: Chronic (9) Chronic low back pain Status: Chronic (10) CKD (chronic kidney disease), stage III Status: Chronic (11) Dependence on nocturnal oxygen therapy Status: Chronic (12) Morbid obesity with BMI of 40.0-44.9, adult Status: Chronic Plan/Intensity of Service ABLA - hgb continues to trend down; it was 14.5 on admission and this am was 8.9 (on recheck increased to 9.3). Iron, folate, B12 pending. With quickly declining hgb, hypotension, status might be changed to inpatient. GI bleed - EGD done yesterday showed moderate duodenitis. Continue clears ( though pt would like full liq if ok with surgery). ?colonoscopy Hypotension - BP 100/52 (MAP 68) at lunch today. Cont to hold valsartan and continue IVF. Discussed with Dr. Meza. DVT Prophylaxis: SCD'S Code Status Full Code Hospital Course Summary Disclaimer The hospital course summary below is not to be considered part of the above Progress Note. Hospital Course Summary 05/31/16 Admit, observation status under Dr. Meza. Code status: Full code. 1. Acute GI/rectal bleeding. - Trend hgb. - Protonix IV BID. - Consult Dr. Hernandez. - Stop naproxen. - NPO status. - Macrocytosis - check iron studies and B12 2. Lightheadedness/dizziness - up with assist - IVF: NS at 100 ml/hr. - check TSH, prealbumin 3. Chronic conditions - HTN - typically takes Valsartan, but with decreasing BP trends will hold for now. - Gout - allopurinol - Nocturnal oxygen. 06/01/16 ABLA - hgb continues to trend down; it was 14.5 on admission and this am was 8.9 (on recheck increased to 9.3). Iron, folate, B12 pending. GI bleed - EGD done yesterday showed moderate duodenitis. Continue clears ( though pt would like full liq if ok with surgery). ?colonoscopy Hypotension - BP 100/52 (MAP 68) at lunch today. Cont to hold valsartan and continue IVF. KAYA MEZA MD 06/01/16 2017: Assessment & Plan Plan/Intensity of Service Have independently interviewed and examined pt. Chart reviewed. Case discussed with CM, Dr Hernandez and my BONDERITE OPERATOR. Care plan developed with my supervision; agree with above. Doing fair. Notes more weak and some increased SOA (used to HGB being about 16) . No nausea. Has passed 4 stools today without any blood. No nausea. No chest pain. Lungs: decreased CV: regular AB: soft nt/nd BS decreased MSE: awake alert appropriate Plan: With significant drop in HGB due to acute GI blood loss, did change admission status to inpatient-anticipate greater than 2 midnights of care needed. Monitor hemoglobin-transfuse as indicated. Dr Hernandez plans bowel prep tomorrow for colonoscopy on 06/03. Will continue IVF. LIZZY PITTS BONDERITE OPERATOR Jun 01, 2016 13:21 KAYA MEZA MD Jun 01, 2016 20:17
--- NOTE | 2016-06-01 14:43 | NUR ---
STATUS PT SITS UP IN CHAIR. PT WEANED TO ROOM AIR WITH SATS 93%. PT DENIES NEEDS OR C/O'S. TOLERATING CLEAR LIQUIDS WITHOUT NAUSEA/VOMITING. PT HAS HAD NO BLOODY STOOLS TODAY. WILL CONTINUE TO MONITOR.
[2016-06-01 16:30] LABS: HCT - HEMATOCRIT 28.1 % (36-46); HGB - HEMOGLOBIN 9.1 GM/DL (12-16)
--- NOTE | 2016-06-01 18:41 | NUR ---
STATUS PT CHEERFUL AND TALKATIVE. HAS HAD NO BLOODY STOOLS THIS SHIFT. VITALS STABLE CHARTED. PT ORDERS FULL LIQUID DINNER. WILL MONITOR.
--- NOTE | 2016-06-01 20:14 | PNF ---
DATE OF SERVICE 06/01/2016 FINDINGS July this evening was in good spirits. She states that she has had no further rectal bleeding this evening. Denied any element of abdominal pain. PHYSICAL EXAMINATION VITAL SIGNS: Afebrile. Normotensive. Current vitals include temperature 97.5, pulse 81, respirations 18, blood pressure 144/67, SaO2 90% on 1 liter per nasal cannula. CHEST: Clear to auscultation bilaterally. HEART: Regular rate and rhythm. Normal S1 and S2 without gallops, murmurs or clicks. ABDOMEN: Palpation of the abdomen this evening reveals it to be soft and completely nontender. No evidence for guarding. LABORATORY/RADIOGRAPH EVALUATION Patient's hemoglobin did drift downward since her admission but has been stable. Her hemoglobin on admission was 14.5. Her hemoglobin has drifted down to 9 but has overall been stable at around 9. ASSESSMENT An 80-year-old female with onset of hematochezia/rectal bleeding of uncertain etiology. PLAN I did inform the patient that I felt that we had a few options available at this point in time. One option would be to go ahead and proceed with colonoscopy for further evaluation of the underlying etiology for her recent rectal bleeding. It is my clinical intuition that this bleeding may indeed have been diverticular in nature. Patient states that it has been quite some time since she has had a colonoscopy. Perhaps greater than 10 years. I informed the patient that another option would be not to proceed with any endoscopic evaluation and continue to follow her from a clinical standpoint. Pros and cons of these options were discussed with the patient. The patient stated that she would like to proceed with colonoscopy. We will go ahead and give the patient some full liquids this evening. We will proceed with bowel prep tomorrow and then proceed with endoscopic evaluation on . I did discuss with the patient what a colonoscopy entailed and its associated risks which included but were not inclusive of bleeding and/or perforation. The patient understood and agreed with the proposed plan as stated above. KRISTINA
[2016-06-01 22:26] LABS: HGB - HEMOGLOBIN 8.9 GM/DL (12-16)
[2016-06-02 00:04] VITALS: BP 132/70; PULSE 86; RESP 16; TEMP 96.6; O2SAT 92
[2016-06-02] MEDS: ACETAMINOPHEN 325 MG TABLET PO PRN (01:27)
--- NOTE | 2016-06-02 01:30 | NUR ---
PRN: Pt c/o "regular aches and pains." Pt requesting PRN Tylenol to help with comfort. Tylenol administered as charted. Pt resting in bed. Will continue to monitor.
[2016-06-02 01:50] LABS: TOTAL IRON BINDING CAPACITY 311 UG/DL (261-497)
[2016-06-02 02:20] LABS: IRON 131 UG/DL (37-170)
--- NOTE | 2016-06-02 02:30 | NUR ---
Follow up to PRN: Pt is resting soundly in bed with eyes closed and respirations even and non labored. Will continue to monitor.
[2016-06-02 02:57] LABS: FERRITIN 51.3 NG/ML (11-264)
[2016-06-02 03:27] LABS: FOLATE > 20.0 NG/ML (2.76-20); VITAMIN B12 - BATCH 358 PG/ML (239-931)
[2016-06-02] MEDS: NORMAL SALINE 1,000 ML IV SCH ×2 (04:32→18:19)
[2016-06-02 05:47] VITALS: BP 146/83; PULSE 94; RESP 22; TEMP 96.8; O2SAT 87
[2016-06-02 05:49] VITALS: O2SAT 94
[2016-06-02 06:14] LABS: BASOPHILS % (AUTO) 0.5 % (0-2); EOSINOPHILS # (AUTO) 0.3 T/MM3 (0-0.5); HCT - HEMATOCRIT 27.2 % (36-46); HGB - HEMOGLOBIN 8.6 GM/DL (12-16); IMMATURE GRANULOCYTE # (AUTO) 0.02 T/MM3 (0.00-0.03); IMMATURE GRANULOCYTE % (AUTO) 0.3 % (0.0-0.5); LYMPHOCYTES # (AUTO) 1.8 T/MM3 (1-4.8); LYMPHOCYTES % (AUTO) 23.9 % (23-45); MEAN CORPUSCULAR HGB 33.3 UUG (26-34); MEAN CORPUSCULAR HGB CONC(MCHC 31.6 GM/DL (31-37); MEAN CORPUSCULAR VOLUME 105.4 UM3 (80-100); MEAN PLATELET VOLUME 10.8 UM3 (9.4-12.4); MONOCYTES # (AUTO) 0.7 T/MM3 (0-0.8); MONOCYTES % (AUTO) 9.8 % (0-9.0); NEUTROPHILS #(AUTO)-ABSOLUTE 4.6 T/MM3 (1.8-7.7); NEUTROPHILS % (AUTO) 61.5 % (33-66); RED BLOOD COUNT 2.58 M/MM3 (4.00-5.20); WBC - WHITE BLOOD COUNT 7.4 T/MM3 (4.5-11.0)
[2016-06-02 06:25] LABS: ANION GAP 10 MEQ/L (5-15); BUN/CREATININE RATIO 20 RATIO (6-26); CALCIUM 8.4 MG/DL (8.4-10.2); CHLORIDE 111 MEQ/L (98-107); CO2 - CARBON DIOXIDE 25 MEQ/L (22-30); CREATININE 0.8 MG/DL (0.7-1.2); GLOMERULAR FILTRATION RATE 69; GLUCOSE 106 MG/DL (65-110); POTASSIUM 4.3 MEQ/L (3.6-5); SODIUM 146 MEQ/L (134-144)
--- NOTE | 2016-06-02 06:34 | NUR ---
Shift Summary: Pt has been awake frequently during the night. Pt did sleep for a couple of hours early this am and rested well after Tylenol given. Pt was on 1L of O2 during the night but was increased to 2L of O2 this am. Pt has increased anxiety and activity this am after bloody stools started back in. Pt was up several times in a row in about a 2 hour time span and had several large bloody stools. Pt became very anxious after this and has been talking rapidly and anxiously. Pt is agitated with nursing staff and continuously gets agitated and then states, "I'm sorry I am telling you what to do." Pt has a difficult time listening to education and teaching and talks over staff. Pt is very particular and does not cooperate with cares very well. Pt resting in bed and call light within reach. Will continue to monitor.
[2016-06-02 08:00] VITALS: BP 92/57; PULSE 87; PULSE 93; RESP 20; TEMP 96.3; O2SAT 94
[2016-06-02] MEDS ORDERED: DiphenhydrAMINE 25 MG CAPSULE PO ONE ×2 (09:00→18:45)
[2016-06-02] MEDS: ALLOPURINOL 100 MG TABLET PO SCH (09:00)
[2016-06-02] MEDS ORDERED: NORMAL SALINE 500 ML IV SCH ×2 (09:00→18:45)
[2016-06-02] MEDS: PANTOPRAZOLE 40mg INJECTION IV SCH ×2 (09:18→20:10)
[2016-06-02 09:57] LABS: HGB - HEMOGLOBIN 7.2 GM/DL (12-16)
[2016-06-02] MEDS ORDERED: BISACODYL 5 MG E.C. TABLET PO ONE (10:00)
--- NOTE | 2016-06-02 12:05 | PNF ---
DATE 06/02/2016 FINDINGS July this morning informs me that she has had several additional large bloody stools. She describes it as bright red in nature. She is feeling somewhat weak and at times has felt as if she was going to "pass out." VITALS: Temperature 96.8. Pulse 94. Respirations 22. Blood pressure 146/83. SaO2 94% on 2 liters per nasal cannula. HEENT: Normocephalic. Pupils are equal, round and reactive to light and accommodation. CHEST: Clear to auscultation bilaterally. HEART: Regular rate and rhythm. Normal S1 and S2 without gallops, murmurs or clicks. ABDOMEN: Soft, completely nontender this morning. No evidence for guarding or rebound. LABORATORY/RADIOGRAPH EVALUATION The patient's hemoglobin at this point in time has remained stable and is 8.6. It is my intuition that as the day goes on her hemoglobin will drift downward because she has had several large bloody stools this morning. A BMP was obtained today and found to be essentially within normal limits. ASSESSMENT 80-year-old female with ongoing GI bleed of uncertain etiology. Likely diverticular in nature. PLAN Given the fact she has had several large bloody stools this morning, I am a little reluctant to continue with orders for a bowel prep today. Will put her bowel prep on hold. The patient has been typed and crossed. One may wish to go ahead and give her 1 unit this morning even though her hemoglobin is currently above 8. It is my intuition, as above, that her hemoglobin will drift downward today and that she is already showing some symptoms of feeling dizzy and having some presyncopal-like feelings. Will continue to follow closely. KRISTINA
[2016-06-02] MEDS ORDERED: POLYETHYL.GLYCOL 3350 BOTTLE 238 GM PO ONE (13:00)
--- NOTE | 2016-06-02 15:39 | NUR ---
blood Blood started at 1209, ended at 1415 with flush till 1445. Pt resting and tolerated well, V/S stable.
[2016-06-02 16:01] VITALS: BP 134/67; PULSE 91; RESP 18; TEMP 97; O2SAT 98
[2016-06-02 18:42] LABS: HGB - HEMOGLOBIN 6.3 GM/DL (12-16)
--- NOTE | 2016-06-02 19:08 | PNPDOC ---
Subjective Date DATE: 06/02/16 TIME: 19:00 Subjective F/U: Acute GI bleed, acute Blood loss anemia Passing more blood rectally. No ab pain or nausea. Does feel more unsteady when up. Breathing fair-not congested or having cough. Needing O2 to help breathing feel comfortable. Objective Vital Signs Vital signs Vital Signs Date Time Temp Pulse Resp B/P Pulse Ox O2 Delivery O2 Flow Rate FiO2 06/02/16 16:01 97.0 91 18 134/67 98 Nasal Cannula 2.00 Height (Feet): 5 Height (Inches): 5.00 Weight (Kilograms): 119.200 General General Appearance: Alert, Obese, Orientated x 3, Well Nourished, Well Developed, Cooperative, Looks Stated Age Eyes (Brief) Eyes: FOUND: EOMI, PERRL, NOT FOUND: scleral icterus ENMT (Brief) ENMT: FOUND: hearing intact, mucosa moist Neck (Brief) Neck: FOUND: midline, NOT FOUND: nuchal rigidity, spasm Respiratory (Brief) Respiratory: FOUND: clear all keane, equal bilaterally, NOT FOUND: rales, wheezes Cardiovascular (Brief) Cardiac: FOUND: pedal edema (+1 ), regular rate, regular rhythm Abdomen (Brief) Abdominal: FOUND: soft, NOT FOUND: BS normo active x4 (Decreased ), distended, tender Extremities (Brief) Extremity : Side: Bilateral Extremity: leg Extremity Finding: FOUND: edema (+1 ) Musculoskeletal (Brief) Musculoskeletal: FOUND: extremities move equally, NOT FOUND: deformity, spasm Integumentary (Brief) Integumentary: FOUND: dry, warm Neurologic (Brief) Neurological: FOUND: cranial 2-12 intact, motor (Intact ) Psychiatric (Brief) Psychiatric: FOUND: alert, attentive, normal affect, oriented Laboratory Laboratory Laboratory Tests 06/01/16 04:29 06/02/16 06:04 Laboratory Tests 05/31/16 20:14 05/31/16 23:50 06/01/16 04:29 06/01/16 10:20 06/01/16 16:16 06/01/16 22:01 06/02/16 06:04 06/02/16 09:49 06/02/16 18:09 Assessment & Plan Problems: (1) Acute blood loss anemia Status: Acute Assessment & Plan: 06/02: Transfused total of 3 units pRBC (2) GI bleeding Status: Acute Qualifiers: GI bleed type/associated pathology: unspecified gastrointestinal hemorrhage type Qualified Codes: K92.2 - Gastrointestinal hemorrhage, unspecified Assessment & Plan: EGD on 05/31/16 Moderate duodenitis (3) Macrocytosis (4) HTN (hypertension) Status: Chronic (5) Pulmonary HTN Assessment & Plan: Echo 07/2015: EF 70%, Grade II Diastolic Dysfunction, Severely dilated left atrium, mild-moderate MR, mild MS, moderate TR, moderate PH (6) Gout Status: Chronic (7) Urge and stress incontinence Status: Chronic (8) Allergic rhinitis Status: Chronic (9) Chronic low back pain Status: Chronic (10) CKD (chronic kidney disease), stage III Status: Chronic (11) Dependence on nocturnal oxygen therapy Status: Chronic (12) Morbid obesity with BMI of 40.0-44.9, adult Status: Chronic Plan/Intensity of Service HGB decreased to 7.2 - given 1 unit. Recheck post transfusion 6.3 - will transfuse 2 more units. Recheck 1 hour post transfusion. Continue IVF for support. Encourage pulmonary exercise. Anticipate colonoscopy tomorrow. Recheck BMP in am due to IVF. Case discussed with CM and nursing. Time spent with pt care 35 minutes. DVT Prophylaxis: SCD'S Code Status Full Code Hospital Course Summary Disclaimer The hospital course summary below is not to be considered part of the above Progress Note. Hospital Course Summary 05/31/16 Admit, observation status under Dr. Dunham. Code status: Full code. 1. Acute GI/rectal bleeding. - Trend hgb. - Protonix IV BID. - Consult Dr. Hernandez. - Stop naproxen. - NPO status. - Macrocytosis - check iron studies and B12 2. Lightheadedness/dizziness - up with assist - IVF: NS at 100 ml/hr. - check TSH, prealbumin 3. Chronic conditions - HTN - typically takes Valsartan, but with decreasing BP trends will hold for now. - Gout - allopurinol - Nocturnal oxygen. 06/01/16 ABLA - hgb continues to trend down; it was 14.5 on admission and this am was 8.9 (on recheck increased to 9.3). Iron, folate, B12 pending. GI bleed - EGD done yesterday showed moderate duodenitis. Continue clears ( though pt would like full liq if ok with surgery). ?colonoscopy Hypotension - BP 100/52 (MAP 68) at lunch today. Cont to hold valsartan and continue IVF. 06/02 Passing more blood rectally. No ab pain or nausea. Does feel more unsteady when up. Breathing fair-not congested or having cough. Needing O2 to help breathing feel comfortable. Iron studies and B12 normal. HGB decreased to 7.2 - given 1 unit. Recheck post transfusion 6.3 - will transfuse 2 more units. Recheck 1 hour post transfusion. Continue IVF for support. Encourage pulmonary exercise. Anticipate colonoscopy tomorrow. Recheck BMP in am due to IVF. KAYA DUNHAM MD Jun 02, 2016 19:03
--- NOTE | 2016-06-02 19:34 | NUR ---
status Pt A/O x3, V/S stable on 2L. Pt on cl liq diet, did try to eat broth today. Pt ambulates with 1-2x assist per her request to get from bed to BSC. Pt denies pain and no PRN pain meds given. Pt having multiple, lg liquid blood stools all day long. Hgb back with drop, talked with dr Dunham and received N.O. to give 2 units of blood tonight. Pt c/o possibly passing out each time she gets up to BSC, has not fainted or come close to it at all today.
[2016-06-02 20:56] VITALS: PULSE 102; RESP 18
--- NOTE | 2016-06-02 23:10 | NUR ---
Blood Dr ordered 2 units of blood. First unit stated at 2044 and finished at 2239, Pt tolerated well, VS stable during the whole process. Will get ready for second unit.
[2016-06-03] VITALS: BP 136/71; PULSE 85; RESP 18; TEMP 98.6; O2SAT 98
--- NOTE | 2016-06-03 02:35 | NUR ---
Blood Second unit started at 2355 and finished at 0201, Pt tolerated well, VS stable during the whole process. Lab here a this time for post-trans hemoglobin, will continue to monitor.
[2016-06-03 02:52] LABS: BASOPHILS % (AUTO) 0.5 % (0-2); EOSINOPHILS # (AUTO) 0.4 T/MM3 (0-0.5); EOSINOPHILS % (AUTO) 4.4 % (0-4); HCT - HEMATOCRIT 23.7 % (36-46); IMMATURE GRANULOCYTE # (AUTO) 0.05 T/MM3 (0.00-0.03); IMMATURE GRANULOCYTE % (AUTO) 0.6 % (0.0-0.5); LYMPHOCYTES # (AUTO) 1.8 T/MM3 (1-4.8); LYMPHOCYTES % (AUTO) 21.7 % (23-45); MEAN CORPUSCULAR HGB 31.1 UUG (26-34); MEAN CORPUSCULAR HGB CONC(MCHC 33.8 GM/DL (31-37); MEAN CORPUSCULAR VOLUME 92.2 UM3 (80-100); MONOCYTES # (AUTO) 0.8 T/MM3 (0-0.8); MONOCYTES % (AUTO) 10.2 % (0-9.0); NEUTROPHILS #(AUTO)-ABSOLUTE 5.2 T/MM3 (1.8-7.7); NEUTROPHILS % (AUTO) 62.6 % (33-66); RED BLOOD COUNT 2.57 M/MM3 (4.00-5.20); WBC - WHITE BLOOD COUNT 8.2 T/MM3 (4.5-11.0)
[2016-06-03 03:00] LABS: ANION GAP 4 MEQ/L (5-15); BUN/CREATININE RATIO 16 RATIO (6-26); CALCIUM 8.2 MG/DL (8.4-10.2); CHLORIDE 114 MEQ/L (98-107); CO2 - CARBON DIOXIDE 25 MEQ/L (22-30); GLOMERULAR FILTRATION RATE 53; GLUCOSE 103 MG/DL (65-110); POTASSIUM 4.6 MEQ/L (3.6-5); SODIUM 143 MEQ/L (134-144)
--- NOTE | 2016-06-03 05:49 | NUR ---
Status Pt alert and oriented x3. She has been NPO since midnight for possible colonoscopy this morning. So far at this point Pt hasn't have any bloody stools since yesterday afternoon. Hemoglobin went up to 8.0, Pt denies pain or discomfort. Remains on 2L per NC tolerating well. Will continue to monitor.
[2016-06-03] MEDS: NORMAL SALINE 1,000 ML IV SCH ×2 (07:30→10:26)
[2016-06-03 08:00] VITALS: BP 163/89; PULSE 90; RESP 18; TEMP 98; O2SAT 92
--- NOTE | 2016-06-03 08:00 | NUR ---
Report received Patient is resting in bed in no apparent distress. NS running at 100ml/hr RFA. 2L NC O2.
[2016-06-03] MEDS ORDERED: FLEET PHOSPHO-SODA 133 ML ENEMA RECTALLY PRN (08:30)
[2016-06-03] MEDS: ALLOPURINOL 100 MG TABLET PO SCH ×2 (09:00→10:22)
--- NOTE | 2016-06-03 10:20 | PNPDOC ---
LIZZY PITTS SERJIO 06/03/16 0843: Subjective Date DATE: 06/03/16 TIME: 08:42 Subjective Julia is frustrated b/c of communication issues - staff reported plans for colonoscopy but she didn't know about it. I spoke with Dr. Hernandez directly while I was in the room, and he is not planning on colonoscopy today. He wants to monitor for additional bleeding today. Once that issue was resolved, she noted that her hands are more swollen, and notes that she is worried she is receiving too much fluids. Her legs are always swollen, and don't seem worse than usual. She complains of a rash where her bra rests, and while she has a history of it, it is worse than usual. She typically uses generic Goldbond to treat this. She continues to feel lightheaded, but hasn't had any near syncope like she did last night. She reports that last night she saw stars and had to fall into her bed after using the commode. She hasn't had any bloody bowel movements since yesterday afternoon. She has been passing flatus. She is hungry and inquires about eating. Objective Vital Signs Vital signs Vital Signs Date Time Temp Pulse Resp B/P Pulse Ox O2 Delivery O2 Flow Rate FiO2 06/03/16 00:00 98.6 85 18 136/71 98 Nasal Cannula 2.00 Height (Feet): 5 Height (Inches): 5.00 Weight (Kilograms): 119.200 General General Appearance: Alert, Obese, Orientated x 3, Well Nourished, Well Developed, No Acute Distress Eyes (Brief) Eyes: FOUND: PERRL, NOT FOUND: scleral icterus ENMT (Brief) ENMT: FOUND: mucosa moist, NOT FOUND: pharnyx erythema Respiratory (Brief) Respiratory: FOUND: rales (b/l bases) Cardiovascular (Brief) Cardiac: FOUND: regular rate, regular rhythm Abdomen (Brief) Abdominal: FOUND: BS normo active x4, soft, NOT FOUND: distended, tender Extremities (Brief) Extremity : Extremity: forearm, hand, leg Extremity Finding: FOUND: edema Musculoskeletal (Brief) Musculoskeletal: FOUND: extremities move equally Integumentary (Brief) Integumentary: FOUND: dry, rash (intertriginous breakdown under breasts, axillae), warm Psychiatric (Brief) Psychiatric: FOUND: alert, attentive, normal affect, oriented Laboratory Laboratory Laboratory Tests 06/02/16 06:04 06/03/16 02:41 Laboratory Tests 06/01/16 10:20 06/01/16 16:16 06/01/16 22:01 06/02/16 06:04 06/02/16 09:49 06/02/16 18:09 06/03/16 02:41 Assessment & Plan Problems: (1) Acute blood loss anemia Status: Acute Assessment & Plan: 06/02: Transfused total of 3 units pRBC (2) GI bleeding Status: Acute Qualifiers: GI bleed type/associated pathology: unspecified gastrointestinal hemorrhage type Qualified Codes: K92.2 - Gastrointestinal hemorrhage, unspecified Assessment & Plan: EGD on 05/31/16 Moderate duodenitis (3) Macrocytosis (4) HTN (hypertension) Status: Chronic (5) Pulmonary HTN Assessment & Plan: Echo 07/2015: EF 70%, Grade II Diastolic Dysfunction, Severely dilated left atrium, mild-moderate MR, mild MS, moderate TR, moderate PH (6) Gout Status: Chronic (7) Urge and stress incontinence Status: Chronic (8) Allergic rhinitis Status: Chronic (9) Chronic low back pain Status: Chronic (10) CKD (chronic kidney disease), stage III Status: Chronic (11) 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 She continues to be symptomatic with lightheadedness, dizziness and near syncope. Hypotension: Blood pressure was low yesterday, but shows improvement today. With her increase in upper extremity swelling, we'll decrease the rate of fluids. GI bleeding: Last bloody bowel movement was yesterday. Colonoscopy will not be done today. Continue to trend hemoglobin. Gold Green powder for intertriginous breakdown. Discussed with Dr. Hernandez, nursing staff, and Dr. Dunham. DVT Prophylaxis: SCD'S Code Status Full Code Hospital Course Summary Disclaimer The hospital course summary below is not to be considered part of the above Progress Note. Hospital Course Summary 05/31/16 Admit, observation status under Dr. Dunham. Code status: Full code. 1. Acute GI/rectal bleeding. - Trend hgb. - Protonix IV BID. - Consult Dr. Hernandez. - Stop naproxen. - NPO status. - Macrocytosis - check iron studies and B12 2. Lightheadedness/dizziness - up with assist - IVF: NS at 100 ml/hr. - check TSH, prealbumin 3. Chronic conditions - HTN - typically takes Valsartan, but with decreasing BP trends will hold for now. - Gout - allopurinol - Nocturnal oxygen. 06/01/16 ABLA - hgb continues to trend down; it was 14.5 on admission and this am was 8.9 (on recheck increased to 9.3). Iron, folate, B12 pending. GI bleed - EGD done yesterday showed moderate duodenitis. Continue clears ( though pt would like full liq if ok with surgery). ?colonoscopy Hypotension - BP 100/52 (MAP 68) at lunch today. Cont to hold valsartan and continue IVF. 06/02 Passing more blood rectally. No ab pain or nausea. Does feel more unsteady when up. Breathing fair-not congested or having cough. Needing O2 to help breathing feel comfortable. Iron studies and B12 normal. HGB decreased to 7.2 - given 1 unit. Recheck post transfusion 6.3 - will transfuse 2 more units. Recheck 1 hour post transfusion. 06/03/16 Anemia: Hemoglobin up to 8 following transfusion yesterday. She continues to be symptomatic with lightheadedness, dizziness and near syncope. Hypotension: Blood pressure was low yesterday, but shows improvement today. With her increase in upper extremity swelling, we'll decrease the rate of fluids. GI bleeding: Last bloody bowel movement was yesterday. Colonoscopy will not be done today. Continue to trend hemoglobin. Gold Green powder for intertriginous breakdown. KAYA DUNHAM MD 06/03/161952: Assessment & Plan Plan/Intensity of Service Have independently interviewed and examined pt. Chart reviewed. Case discussed with my PROCESS CHEESE COOKER. Care plan developed with my supervision; agree with above. Doing better this evening. Less nauseated (needing to take bowel prep slowly). Feels less dizzy and unsteady. HGB with improvement. Still passing bloody stools. Lungs; clear CV: regular AB: soft obese nt/nd MSE: awake alert appropriate Plan; IVF rate decreased. Continue to monitor hemoglobin. Continue bowel prep. Anticipate colonoscopy tomorrow. Encourage slow, deep breathing activity. LIZZY PITTS PROCESS CHEESE COOKER Jun 03, 2016 08:43 KAYA DUNHAM MD Jun 03, 2016 19:53
[2016-06-03] MEDS: PANTOPRAZOLE 40mg INJECTION IV SCH ×2 (10:22→20:50)
--- NOTE | 2016-06-03 10:23 | NUR ---
CM IN ROOM TO FOLLOW UP VISIT WITH PT. PT DENIES NEEDS AT THIS TIME. EXPLAIN TO PT TO CALL CM SHOULD NEEDS ARISE. PT REPORTS SHE HAS CALLED HER SISTER AND HER TRUSTEE AND HAS BEEN PLANNING HER AND FINAL EXPENSES. PT DOES REPORT TODAY SHE DOES NOT FEEL LIKE SHE IS GOING TO BUT SHE DID LAST NIGHT.
[2016-06-03 10:52] VITALS: PULSE 86
[2016-06-03 10:53] LABS: HCT - HEMATOCRIT 26.9 % (36-46)
[2016-06-03] MEDS ORDERED: BISACODYL 5 MG E.C. TABLET PO ONE (13:15)
[2016-06-03] MEDS ORDERED: POLYETHYL.GLYCOL 3350 BOTTLE 238 GM PO ONE (15:00)
[2016-06-03 16:00] VITALS: BP 129/65; PULSE 94; RESP 18; O2SAT 94
[2016-06-03 16:27] LABS: HGB - HEMOGLOBIN 9.5 GM/DL (12-16)
--- NOTE | 2016-06-03 17:31 | PNF ---
DATE 06/03/2016 FINDINGS Mrs. Holt today was in good spirits. She denied any abdominal pain. She states that her rectal bleeding has subsided. Patient states that yesterday she was fearful that she was "going to " as a result of her ongoing rectal bleeding. EXAM Vitals: Temperature 98.0, pulse 86, respirations 18, blood pressure 163/89, SAO2 92% on 2 liters per nasal cannula. CHEST: Clear to auscultation bilaterally. HEART: Regular rate and rhythm. Normal S1 and S2 without gallops, murmurs or clicks. HEENT: Normocephalic. Pupils are equally round and react to light and accommodation. ABDOMEN: Palpation of the abdomen reveals it to be soft and nontender. I do not appreciate any evidence for hepatosplenomegaly nor abnormal masses. LABORATORY/RADIOGRAPHIC EVALUATION Patient had a CBC today and her hemoglobin was 8.0. Her hemoglobin did drift down to 6.3. Last hemoglobin was 9.0. ASSESSMENT 80-year-old female with rectal bleeding/anemia of uncertain etiology. PLAN Colonoscopy. Given the fact that her rectal bleeding has now subsided it was my recommendation to go ahead and proceed with a bowel prep today. It is my recommendation that tomorrow we proceed with colonoscopy for further evaluation of the underlying etiology for her rectal bleeding. I did discuss what a colonoscopy entailed with the patient and its associated risks which include but are not inclusive of bleeding and/or perforation. The patient understood and agreed to proceed. KRISTINA
--- NOTE | 2016-06-03 19:00 | NUR ---
EOS Patient colonoscopy got cancelled today. Patient did not have bowel prep done yesterday prior to this procedure. Patient had declines bowel prep. Patient wanted to visit with the Anesthesiology prior to beginning bowel prep. Anesthesiology at bedside today. Patient began bowel prep at 1545. Coloscopy is now scheduled for tomorrow. Patient is NPO after Midnight. Patient likes to talk a lot trying to convey a point but circles around an idea several times and wants someone to stay as long as she keeps talking. Patient is very particular. Patient will takes as much time as possible making sure that she is understood. Report given to oncoming nurse.
[2016-06-03] MEDS: ACETAMINOPHEN 325 MG TABLET PO PRN (20:56)
[2016-06-03] MEDS: [UNRECOGNIZED DRUG - REMARK] TOP PRN (22:08)
--- NOTE | 2016-06-03 22:16 | NUR ---
Bowel Prep and Movement Completed bowel prep at 2200. Pt had void and liquid stool totaling 900 ml. Maroon in color, with several small soft BM chunks in liquid BM.
[2016-06-03 22:27] LABS: HGB - HEMOGLOBIN 8.4 GM/DL (12-16)
[2016-06-03 23:12] VITALS: BP 135/71; PULSE 84; RESP 18; TEMP 98.2; O2SAT 99
--- NOTE | 2016-06-03 23:16 | NUR ---
BM and Void Had another 550 ml urine and stool. Still maroon in color. Fewer particles of BM.
[2016-06-04] VITALS (24 sets, daily range): BP systolic 83–177; BP diastolic 44–77; PULSE 88–107; RESP 14–26; TEMP 97.5–99.2; O2SAT 90–99
[2016-06-04] MEDS: NORMAL SALINE 1,000 ML IV SCH (02:06)
[2016-06-04] MEDS: [UNRECOGNIZED DRUG - REMARK] TOP PRN (05:34)
--- NOTE | 2016-06-04 05:50 | NUR ---
Enema Saline enema administered. Clear result.
[2016-06-04 05:51] LABS: HCT - HEMATOCRIT 24.5 % (36-46); MEAN CORPUSCULAR HGB 30.9 UUG (26-34); MEAN CORPUSCULAR HGB CONC(MCHC 32.7 GM/DL (31-37); MEAN CORPUSCULAR VOLUME 94.6 UM3 (80-100); MEAN PLATELET VOLUME 12.1 UM3 (9.4-12.4); RED BLOOD COUNT 2.59 M/MM3 (4.00-5.20); WBC - WHITE BLOOD COUNT 8.8 T/MM3 (4.5-11.0)
[2016-06-04 05:53] LABS: ANION GAP 7 MEQ/L (5-15); BUN/CREATININE RATIO 13 RATIO (6-26); CALCIUM 8.4 MG/DL (8.4-10.2); CHLORIDE 115 MEQ/L (98-107); CO2 - CARBON DIOXIDE 23 MEQ/L (22-30); CREATININE 0.9 MG/DL (0.7-1.2); GLOMERULAR FILTRATION RATE 60; GLUCOSE 102 MG/DL (65-110); POTASSIUM 4.4 MEQ/L (3.6-5); SODIUM 145 MEQ/L (134-144)
[2016-06-04 06:13] LABS: BAND NEUTROPHILS # 0.2 T/MM3; EOSINOPHILS # (MANUAL) 1.1 T/MM3 (0-0.5); LYMPHOCYTES # (MANUAL) 1.8 T/MM3 (1-4.8); MONOCYTES # (MANUAL) 0.2 T/MM3 (0-0.8); NEUTROPHILS #(MANUAL)-ABSOLUTE 5.6 T/MM3 (1.8-7.7); TOTAL CELLS COUNTED 100 %
--- NOTE | 2016-06-04 06:47 | NUR ---
Status Pt has transferred to preop at this time for colonoscopy. Pt A/Ox3 during shift. Stated she had some dizziness this morning after pivoting to BSC. Morning lab hgb of 8.[address] London who stated there was no need to transfuse at this time. Pt has many words. States her mind feels "fuzzy" this morning. Used O2 during night according to chronic O2 usage at home. Pt own med roll-on pain med was given twice on L shoulder per her request. One PRN cough drop given for persistent cough. Bed alarm was in use throughout shift.
--- NOTE | 2016-06-04 07:05 | NUR ---
BEGINNING OF SHIFT PT NOT IN ROOM, PT STILL AT COLONOSCOPY PROCEDURE. REPORT RECEIVED FROM KIM SIMPSON. WILL ASSESS PT WHEN SHE IS BACK FROM PROCEDURE.
--- NOTE | 2016-06-04 07:20 | ANESPREOP ---
Anesthesia Record Date and Time DATE: 06/04/16 TIME: 07:16 Pre-Op Diagnosis rectal bleeding, anemia Proposed Surgical Procedure colonoscopy NPO since: mn Allergies: Coded Allergies: neomycin (Verified Allergy, Intermediate, RASH, 05/31/16) amino acids (Verified Allergy, Unknown, 05/31/16) chromium (Verified Allergy, Unknown, 05/31/16) ergot alkaloids (Verified Allergy, Unknown, 05/31/16) acetaminophen (Verified Adverse Reaction, Unknown, NAUSEA, 05/31/16) hydrocodone (Verified Adverse Reaction, Unknown, NAUSEA, 05/31/16) meperidine (Verified Adverse Reaction, Unknown, "CRAZY", 05/31/16) morphine (Verified Adverse Reaction, Unknown, "CRAZY", 05/31/16) Ht/Wt/BMI Height: 5 ' 5.00 " Weight: 119.400 kg BMI: 43.5 kg/m2 Vital Signs Date Time Temp Pulse Resp B/P Pulse Ox O2 Delivery O2 Flow Rate FiO2 06/04/16 06:56 98.3 98 17 177/77 93 Room Air 06/03/16 23:12 2.00 Medications Inpatient Medications Current Medications Medications (Trade) Dose Ordered Sig/Jose G Start Time Stop Time Status Last Admin Dose Admin Pantoprazole Sodium (Protonix Iv) 40 mg BID 05/31/16 13:00 06/03/16 20:50 40 MG Acetaminophen (Tylenol Regular Strength) 650 mg QID 05/31/16 17:00 05/31/16 17:48 DC Allopurinol (ZYLOPRIM 100 mg) 100 mg DAILY 06/01/16 09:00 Artificial Tears (Refresh Celluvisc Drops) 1 drop DAILY PRN 05/31/16 14:30 Artificial Tears (Lacrilube) 1 applic HS PRN 05/31/16 14:30 Polyethyl Glycol/ Propylene Glycol (Systane Eye Drops) 1 drop QID PRN 05/31/16 14:30 Acetaminophen 650 mg 650 mg QID PRN 05/31/16 18:00 06/03/16 20:56 650 MG Sodium Chloride (Normal Saline IV) 1,000 ml @ 75 mls/hr [id number] 05/31/16 19:30 06/04/16 02:06 75 MLS/HR Sodium Biphosphate/ Sodium Phosphate 1 enema 1 enema PRN PRN 06/03/16 08:30 06/04/16 05:03 1 ENEMA Sodium Chloride 500 ml @ 0 mls/hr Q0M 06/02/16 09:00 Sodium Chloride (NS) 500 ml @ 0 mls/hr Q0M 06/02/16 18:45 Menthol/Zinc Oxide (Gold Green Medicated Powder) 1 applic TID PRN 06/03/16 09:00 Miscellaneous Medication (Pt Own Med) 1 mg PRN PRN 06/03/16 16:45 06/04/16 05:34 1 MG Acetaminophen (Tylenol) 325 Mg Tablet, 650 MG PO QID/PRN, (Reported) Last Taken: on 05/30/16 170 Allopurinol (Allopurinol) 100 Mg Tablet, 100 MG PO DAILY, (Reported) Last Taken: on 05/30/16 0800 Carboxymethylcellulose Sodium (Restore Tears) 30 Ml Drops, 1 DROP BOTH EYES DAILY PRN for PRN ORDERS, (Reported) Last Taken: on Unknown Date & Time Chlorpheniramine Maleate (Chlor-Trimeton ) 4 Mg Tablet, 4 MG PO Q4H PRN for PRN ORDERS, (Reported) Last Taken: on Unknown Date & Time Fexofenadine HCl (Fexofenadine HCl) 180 Mg Tablet, 180 MG PO DAILY, (Reported) Last Taken: on 05/30/16 1700 Mineral Oil/Petrolatum,White (Refresh P.m. Ointment) 3.5 Gm Oint...g., 1 APPLIC BOTH EYES HS PRN for PRN ORDERS, (Reported) Last Taken: on Unknown Date & Time Naproxen Sodium (Naproxen 220mg) 220 Mg Tablet, 220 MG PO BIDWM, (Reported) Last Taken: on 05/30/16 1700 Propylene Glycol/Peg 400 (Systane Ultra 0.4-0.3 % Eye Drp) 10 Ml Drops, 1 DROP BOTH EYES QID PRN for DRY EYES, (Reported) Last Taken: on Unknown Date & Time Valsartan (Valsartan) 160 Mg Tablet, 160 MG PO DAILY, (Reported) Last Taken: on 05/30/16 0800 Currently on Beta Rubina: No Medical/Surgical History Anesthesia PMH: Reports: *Hypertension (pulmonary htn no surgery needed at this time ), Sleep Apnea (NO CPAP), Denies: *PA, Asthma, Blood Transfusion Reac , CHF, COPD, CVA/Stroke/TIA, Cancer, Glaucoma, Hepatitis, Rheumatic Fever, Seizures Smoking Status: Never smoker Use Chewing Tobacco?: No Second Hand Exposure: No Substance Use Type: does not use Last Drink: hours (ago) (8) Past Surgical History Orthopedic Surgeries: Yes - BILATERAL KNEES REPLACED/R SHOULDER REPLACED/LEFT FOOT INSTEP CLEANED ARTHR Abdominal Surgeries: Genitourinary Surgeries: Cardiac Surgeries: Endocrine Surgeries: Reproductive Surgeries: Neurological Surgeries: Ear Surgeries: Nose Surgeries: Throat Surgeries: Other Surgeries: Yes - STRAIGHTENED TWO TOES-LEFT FOOT/CATARACTS REMOVED BILATERALLY/TONSILS OUT Anesthesia Adverse Reactions: FOUND other ("very sensitive to anesthesia, blood pressure drops a lot, lingers for a long time") Family Hx of Anesthesia Advers: none Hx of Motion Sickness: No Pertinent Findings Laboratory Tests 06/04/16 04:21 Test 05/31/16 11:08 Prothromb Time International Ratio 1.08 (0.76-1.04) EKG Rhythm: Sinus Rhythm EKG Ectopy: PAC Physical Exam Respiratory: Lungs clear Cardiovascular: FOUND Regular rate, rhythm Airway Assessment Mallampati Score: II TMD: 3 Fingerbreadths Neck Extension: Fair Overall Assessment: May Be Diff Mask Vent., May Be Diff Intubation ASA: 3 Plan Anesthesia Plan: TIVA, MAC Discussion Discussed risks/options/alternatives of anesthesia and questions answered. Patient consents. Nursing pain assessment noted. Attestation Statement Prior to the delivery of any anesthetic medication, I examined the patient, developed the plan, obtained the patient's consent and discussed the risk and benefits of the procedure with the patient/guardian. ALYSON COX CRNA Jun 04, 2016 07:20
[2016-06-04] MEDS ORDERED: LIDOCAINE 2% (20mg/ml) 5ml PF SDV ONE (07:25)
[2016-06-04] MEDS ORDERED: PROPOFOL 200mg 20 ML IV ONE (07:25)
[2016-06-04] MEDS ORDERED: EPHEDRINE SULFATE 50mg/ml INJECTION ONE (08:02)
[2016-06-04] MEDS ORDERED: SALINE FLUSH 10ml SYRINGE ONE (08:02)
--- NOTE | 2016-06-04 08:14 | GSPOSTPN ---
Endoscopy Procedure Procedure Date: Jun 04, 2016 Surgeon: David ASA: 3 Procedure: Colonoscopy-forceps polypectomy Diagnosis Postop Colonoscopy Diagnosis Postop Colonoscopy Diagnosis: Diverticulosis Polyps at (cm): 20 cm Complications Complications Endoscopy Complications: None Estimated Blood Loss See Anesthesia Record. Vital Signs See Anesthesia and PACU record. MELCHOR BLACK APRN, CWS Jun 04, 2016 08:12
--- NOTE | 2016-06-04 08:47 | ANESPO ---
Post-Op Note Date 06/04/16 Time: 08:25 Status Pt Participated in Evaluation: Pt participated in person Vital Signs Date Time Temp Pulse Resp B/P Pulse Ox O2 Delivery O2 Flow Rate FiO2 06/04/16 08:18 99.2 107 14 107/53 96 Room Air 06/03/16 23:12 2.00 Respiratory Function: Airway patent Cardiovascular Function: Regular pulse Mental Status: Alert/oriented Pain Level Intensity: 0 Unable to Assess Pain Due To: Pt Sleeping Hydration: IV infusing Complications during Recovery None apparent Follow-Up Instructions Instructions Per Surgeon ALYSON COX CRNA Jun 04, 2016 08:46
[2016-06-04] MEDS ORDERED: NORMAL SALINE 1,000 ML IV ONE (08:49)
--- NOTE | 2016-06-04 09:20 | NUR ---
UPDATE PT ARRIVES TO ROOM 139 FROM PACU. PT IS A&OX3, RESP RATE EVEN AND NON LABORED, PT IS VERY TALKATIVE. PT IS HELPED TO BEDSIDE COMMODE, BRIEF IS REPLACED AND PT IS ABLE TO URINATE. PT IS THEN HELPED TO THE RECLINER AND CONNECTED TO VS MONITOR. PTS VS ARE STABLE, PLACED ON 2LNC FOR COMFORT ON PTS REQUEST.
[2016-06-04] MEDS: ALLOPURINOL 100 MG TABLET PO SCH (09:58)
[2016-06-04] MEDS: PANTOPRAZOLE 40mg INJECTION IV SCH ×2 (09:58→21:25)
[2016-06-04 10:15] LABS: HGB - HEMOGLOBIN 8.1 GM/DL (12-16)
[2016-06-04] MEDS: ACETAMINOPHEN 325 MG TABLET PO PRN (10:18)
--- NOTE | 2016-06-04 10:49 | OPNOTEF ---
DATE OF PROCEDURE 06/04/2016 SURGEON Anival Heranndez MD PREOPERATIVE DIAGNOSIS Rectal bleeding, anemia. POSTOPERATIVE DIAGNOSIS Marked sigmoid diverticulosis, colonic polyps x 2 at 20 cm from the anal verge. PROCEDURE Colonoscopy with polypectomy x 2 at 20 cm via cold biopsy technique. . ANESTHESIA TIVA BRIEF HISTORY/INDICATIONS Mrs. Holt is an 80-year-old female who was admitted to our hospital recently as a result of her history for significant rectal bleeding/hematochezia. The patient has required multiple units of blood as a result of her rectal bleeding. Her rectal bleeding, fortunately, has subsided. She has undergone prior upper endoscopy that did not reveal any underlying etiology for her GI bleed. Patient presents today to undergo a colonoscopy for further evaluation. For completeness, please refer to notes included in the patient's chart. FINDINGS Upon colonoscopy the patient was found to have two diminutive-appearing colonic polyps that were on the order of about 5 mm in diameter. These polyps were removed in their entirety via cold biopsy technique. There was no evidence for angiodysplastic lesions or brad malignancies. The patient was found have numerous diverticula within the sigmoid colon region. DESCRIPTION OF PROCEDURE After informed consent was obtained, the patient was brought to the endoscopy suite and placed on the table in left lateral decubitus position. The patient subsequently underwent total intravenous anesthesia by the nurse dock hand per my request. Formal time-out was then completed. Next, digital rectal examination was performed. Normal sphincter tone. No rectal masses were appreciated. An Olympus colonoscope was inserted in the anus and advanced with the lumen of the colon under direct visualization at all times till the cecum was ascertained. Triangulation of taenia coli, ileocecal valve and appendiceal lumen were all visualized. Scope was then slowly withdrawn, again maintaining visualization of the lumen at all times. As stated above, the entire colon was without evidence for angiodysplastic lesions or brad allergies. As the scope was being withdrawn, one could see numerous diverticula within the sigmoid colon region. There was a component of some old blood upon the surface of mucosa in this site of marked diverticulosis. No active bleeding was noted. Additionally, as the scope was being withdrawn, two diminutive-appearing colonic polyps at 20 cm from the anal verge were identified. These polyps were grasped and removed in their entirety via cold biopsy technique and submitted for pathologic evaluation. Once the colonoscope was withdrawn back into the rectal vault, a J-maneuver was performed. No worrisome perianal pathology was noted. Scope was allowed to straighten and withdrawn through the verge. The patient tolerated the procedure without difficulty and was sent back to the recovery room once deemed in stable condition. It is my clinical intuition that the patient's recent GI bleed was most likely diverticular in nature. We will await the biopsy results of her two polypectomies and proceed accordingly with further recommendations thereafter. KRISTINA
--- NOTE | 2016-06-04 11:54 | NUR ---
CM CM IN TO VISIT WITH PT. SHE IS GIVEN INFORMATION ABOUT [facility] FROM [facility] AND [facility] BECAUSE OF HER CONCERN FOR NEEDING HOMEMAKER SERVICES. SHE IS GIVEN UPDATED CM CONTACT INFORMATION.
--- NOTE | 2016-06-04 15:55 | NUR ---
UPDATE PT STATES SHE IS CONCERNED ABOUT HER BLOOD PRESSURES AND ABOUT HAVING CONGESTION, STATES SHE TAKES SWAPNA AT HOME AND WANTS ME TO ASK THE DR IF SHE COULD HAVE IT. ALSO STATES SHE FEELS LIKE SHE HAS BEEN NEGLECTED, STATES SHE HAS NOT SEEN A DR TODAY. THIS RN HAS GONE OVER PTS HGB RESULTS WELL VS EVERYTIME SHE HAS ASKED. DR PIERRE WILL BE CONTACTED TO [facility].
[2016-06-04 16:07] LABS: HGB - HEMOGLOBIN 8.1 GM/DL (12-16)
[2016-06-04] MEDS ORDERED: FEXOFENADINE 60 MG TABLET PO SCH (16:07)
--- NOTE | 2016-06-04 18:44 | NUR ---
UPDATE/END OF SHIFT PT IS CURRENTLY IN BED AFTER SPENDING MOST OF THE DAY IN THE RECLINER, PT WAS ABLE TO WALK TO RESTROOM WITH ASSIST X1, VS HAVE BEEN STABLE AND HGB HAS BEEN MEASURED TWICE AND IT HAS BEEN 8.1 BOTH TIMES DURING THE LAST 8HRS. PT IS NO LONGER WEARING O2, AND WAS GIVEN SWAPNA FOR HER NASAL CONGESTION. PT HAS NO LONGER NS RUNNING.
--- NOTE | 2016-06-04 21:26 | PNPDOC ---
Subjective Date DATE: 06/04/16 TIME: 21:20 Subjective The patient is seen in her room this evening. She is very anxious about her hospital stay. She did undergo colonoscopy today and she had a polyp removed and was noted to have multiple diverticuli. No active bleeding reported. She's had no further rectal bleeding since colon prep. She is eating and drinking well today. She does feel lightheaded at times and fatigued. She is worried that she is not strong enough to go home. She does feel mildly short of breath but when I placed her oxygen on at 2 L she felt better. On room air she was in the mid 80s. On 2 L she was up to 95%. She is urinating okay. She denies any pain today. Objective Vital Signs Vital signs Vital Signs Date Time Temp Pulse Resp B/P Pulse Ox O2 Delivery O2 Flow Rate FiO2 06/04/16 15:02 97.5 94 16 109/59 90 Room Air 06/04/16 13:08 2.00 GEN-alert, oriented, no acute distress other than anxiety HEENT-clear anicteric, oropharynx is moist NECK-supple CV-borderline Tachycardic rate with irregular rhythm CHEST-mild crackles in the bases with mild wheezing ABD-soft, nontender, nondistended with positive bowel sounds -Hurd EXT-edema NEURO-no focal deficits SKIN-arm and dry and without rashes Height (Feet): 5 Height (Inches): 5.00 Weight (Kilograms): 121.200 Laboratory Laboratory Laboratory Tests 06/03/16 02:41 06/04/16 04:21 Laboratory Tests 06/03/16 02:41 06/03/16 10:13 06/03/16 16:01 06/03/16 22:19 06/04/16 04:21 06/04/16 10:02 06/04/16 15:55 Assessment & Plan Problems: (1) Acute blood loss anemia Status: Acute Assessment & Plan: 06/02: Transfused total of 3 units pRBC (2) GI bleeding Status: Acute Qualifiers: GI bleed type/associated pathology: unspecified gastrointestinal hemorrhage type Qualified Codes: K92.2 - Gastrointestinal hemorrhage, unspecified Assessment & Plan: EGD on 05/31/16 Moderate duodenitis (3) Macrocytosis (4) HTN (hypertension) Status: Chronic (5) Pulmonary HTN Assessment & Plan: Echo 07/2015: EF 70%, Grade II Diastolic Dysfunction, Severely dilated left atrium, mild-moderate MR, mild MS, moderate TR, moderate PH (6) Gout Status: Chronic (7) Urge and stress incontinence Status: Chronic (8) Allergic rhinitis Status: Chronic (9) Chronic low back pain Status: Chronic (10) CKD (chronic kidney disease), stage III Status: Chronic (11) Dependence on nocturnal oxygen therapy Status: Chronic (12) Morbid obesity with BMI of 40.0-44.9, adult Status: Chronic (13) Intertriginous candidiasis Assessment 06/04/2016-Velez GI bleed-seems to have resolved at this time. Possibly secondary to diverticular bleed in a patient on Naprosyn. Acute blood loss anemia-status post 3 units of blood. Hemoglobin is stable the past few days. Hypoxemia -will likely need to diurese, but patient does not want diuretic this evening. We'll check a chest x-ray tomorrow and likely diuresis tomorrow Chronic kidney disease stage III Pulmonary hypertension Nocturnal hypoxia chronically on 3 L Morbid obesity Generalized weakness Plan PT and OT consult tomorrow Chest x-ray in a.m. CBC and basic metabolic profile in the morning Possible diuresis tomorrow, with diuresis this evening if she is more short of breath. Greater than 50 minutes of time spent seeing and evaluating the patient, talking with her about her concerns, and making care plan. DVT Prophylaxis: SCD'S Code Status Full Code Hospital Course Summary Disclaimer The hospital course summary below is not to be considered part of the above Progress Note. Hospital Course Summary 05/31/16 Admit, observation status under Dr. Dunham. Code status: Full code. 1. Acute GI/rectal bleeding. - Trend hgb. - Protonix IV BID. - Consult Dr. Hernandez. - Stop naproxen. - NPO status. - Macrocytosis - check iron studies and B12 2. Lightheadedness/dizziness - up with assist - IVF: NS at 100 ml/hr. - check TSH, prealbumin 3. Chronic conditions - HTN - typically takes Valsartan, but with decreasing BP trends will hold for now. - Gout - allopurinol - Nocturnal oxygen. 06/01/16 ABLA - hgb continues to trend down; it was 14.5 on admission and this am was 8.9 (on recheck increased to 9.3). Iron, folate, B12 pending. GI bleed - EGD done yesterday showed moderate duodenitis. Continue clears ( though pt would like full liq if ok with surgery). ?colonoscopy Hypotension - BP 100/52 (MAP 68) at lunch today. Cont to hold valsartan and continue IVF. 06/02 Passing more blood rectally. No ab pain or nausea. Does feel more unsteady when up. Breathing fair-not congested or having cough. Needing O2 to help breathing feel comfortable. Iron studies and B12 normal. HGB decreased to 7.2 - given 1 unit. Recheck post transfusion 6.3 - will transfuse 2 more units. Recheck 1 hour post transfusion. 06/03/16 Anemia: Hemoglobin up to 8 following transfusion yesterday. She continues to be symptomatic with lightheadedness, dizziness and near syncope. Hypotension: Blood pressure was low yesterday, but shows improvement today. With her increase in upper extremity swelling, we'll decrease the rate of fluids. GI bleeding: Last bloody bowel movement was yesterday. Colonoscopy will not be done today. Continue to trend hemoglobin. Gold Green powder for intertriginous breakdown. MAKAYLA VELEZ MD Jun 04, 2016 21:26
[2016-06-04 21:44] LABS: HGB - HEMOGLOBIN 8.2 GM/DL (12-16)
[2016-06-05] VITALS (8 sets, daily range): BP systolic 129–143; BP diastolic 59–78; PULSE 80–102; RESP 18–20; TEMP 98.3–99.4; O2SAT 92–100
--- NOTE | 2016-06-05 05:57 | NUR ---
SUMMARY. PT SLEPT WELL THIS SHIFT. PT IS ALERT AND ORIENTED. ABLE TO VERBALIZE NEEDS TO THE STAFFS. PT DENIED ANY PAIN THIS SHIFT. NO PRN MEDICATION GIVEN. PT IS 1 PERSON ASSIST WITH TRANSFER AND AMBULATION WITH A WALKER. ON 1 L/NC ALL NIGHT. O2 SATS ABOVE 90%. INCONTINENT OF BLADDER. PT WAS EDUCATED ABOUT CALL LIGHT USE AND PT SAFETY. IN BED SLEEPING AT THE MOMENT.
[2016-06-05 06:08] LABS: ANION GAP 8 MEQ/L (5-15); BUN/CREATININE RATIO 10 RATIO (6-26); CALCIUM 8.5 MG/DL (8.4-10.2); CHLORIDE 111 MEQ/L (98-107); CO2 - CARBON DIOXIDE 25 MEQ/L (22-30); CREATININE 0.9 MG/DL (0.7-1.2); GLOMERULAR FILTRATION RATE 60; GLUCOSE 114 MG/DL (65-110); POTASSIUM 4.3 MEQ/L (3.6-5); SODIUM 144 MEQ/L (134-144)
[2016-06-05 06:31] LABS: BASOPHILS % (AUTO) 0.3 % (0-2); EOSINOPHILS # (AUTO) 0.3 T/MM3 (0-0.5); EOSINOPHILS % (AUTO) 2.7 % (0-4); HCT - HEMATOCRIT 25.1 % (36-46); HGB - HEMOGLOBIN 8.2 GM/DL (12-16); IMMATURE GRANULOCYTE # (AUTO) 0.03 T/MM3 (0.00-0.03); IMMATURE GRANULOCYTE % (AUTO) 0.3 % (0.0-0.5); LYMPHOCYTES % (AUTO) 8.2 % (23-45); MEAN CORPUSCULAR HGB 31.7 UUG (26-34); MEAN CORPUSCULAR HGB CONC(MCHC 32.7 GM/DL (31-37); MEAN CORPUSCULAR VOLUME 96.9 UM3 (80-100); MONOCYTES # (AUTO) 1.1 T/MM3 (0-0.8); MONOCYTES % (AUTO) 9.7 % (0-9.0); NEUTROPHILS #(AUTO)-ABSOLUTE 9.2 T/MM3 (1.8-7.7); NEUTROPHILS % (AUTO) 78.8 % (33-66); RED BLOOD COUNT 2.59 M/MM3 (4.00-5.20); WBC - WHITE BLOOD COUNT 11.6 T/MM3 (4.5-11.0)
[2016-06-05] MEDS: MENTHOL TOP PRN (10:10)
[2016-06-05] MEDS: ALLOPURINOL 100 MG TABLET PO SCH (10:10)
[2016-06-05] MEDS: ZINC OXIDE TOP PRN (10:10)
[2016-06-05] MEDS: PANTOPRAZOLE 40mg INJECTION IV SCH (10:10)
--- NOTE | 2016-06-05 10:44 | PNF ---
DATE OF SERVICE 06/05/2016 FINDINGS Mrs. Holt today was in good spirits. She has had no further rectal bleeding. PHYSICAL EXAMINATION VITAL SIGNS: Afebrile. Normotensive. Vitals include temperature 99.0, pulse 93, respirations 18, blood pressure 141/73, SaO2 93% on 2 liters per nasal cannula. ABDOMEN: Palpation of the abdomen reveals it to be soft and nontender. No evidence of hepatomegaly or other abnormal masses. No guarding present. LABORATORY/RADIOGRAPH EVALUATION Patient had serial hemoglobins. Her hemoglobin remains stable at 8.2. ASSESSMENT An 80-year-old female with presentation of GI bleed, most likely diverticular in nature. PLAN Patient is stable from a surgical standpoint. We will continue with current care. We will go ahead and sign off at this point in time from a general surgical standpoint. If further assistance is needed, please do not hesitate to recontact me if necessary. MTDD
[2016-06-05] MEDS ORDERED: BUMETANIDE 1 MG/4 ML INJECTION IV ONE (13:45)
--- NOTE | 2016-06-05 13:53 | PNPDOC ---
Subjective Date DATE: 06/05/16 TIME: 13:45 Subjective The patient was seen in her room today. She states she is feeling okay. She does have some cough but does not feel short of breath on supplemental oxygen. She ate some eggs and toast for breakfast and tolerated that well. She denies any nausea or vomiting. She has not had any bowel movements or rectal bleeding since finishing her prep for colonoscopy. She is urinating well. She sitting up in a chair. She denies any lightheadedness today but still feels weak. She states her balance felt off even prior to developing the rectal bleeding. She denies any pain. Objective Vital Signs Vital signs Vital Signs Date Time Temp Pulse Resp B/P Pulse Ox O2 Delivery O2 Flow Rate FiO2 06/05/16 12:00 98.3 80 18 133/71 96 Nasal Cannula 2.00 GEN-alert, oriented, no acute distress HEENT-sclera anicteric, oropharynx is moist, no thrush NECK-supple CV-regular rate and rhythm CHEST-mild crackles and wheezing ABD-soft, nontender, non-distended with positive bowel sounds -no Hurd EXT-trace to +1 edema pretibially NEURO-no focal deficits SKIN-warm and dry and without rashes Height (Feet): 5 Height (Inches): 5.00 Weight (Kilograms): 121.100 Laboratory Laboratory Laboratory Tests 06/04/16 04:21 06/05/16 05:17 Laboratory Tests 06/03/16 16:01 06/03/16 22:19 06/04/16 04:21 06/04/16 10:02 06/04/16 15:55 06/04/16 21:38 06/05/16 05:17 06/05/16 10:25 Radiology Chest x-ray on my read shows mild pulmonary edema. Radiology report is pending Assessment & Plan Problems: (1) Acute blood loss anemia Status: Acute Assessment & Plan: 06/02: Transfused total of 3 units pRBC (2) GI bleeding Status: Acute Qualifiers: GI bleed type/associated pathology: unspecified gastrointestinal hemorrhage type Qualified Codes: K92.2 - Gastrointestinal hemorrhage, unspecified Assessment & Plan: EGD on 05/31/16 Moderate duodenitis (3) Macrocytosis (4) HTN (hypertension) Status: Chronic (5) Pulmonary HTN Assessment & Plan: Echo 07/2015: EF 70%, Grade II Diastolic Dysfunction, Severely dilated left atrium, mild-moderate MR, mild MS, moderate TR, moderate PH (6) Gout Status: Chronic (7) Urge and stress incontinence Status: Chronic (8) Allergic rhinitis Status: Chronic (9) Chronic low back pain Status: Chronic (10) CKD (chronic kidney disease), stage III Status: Chronic (11) Dependence on nocturnal oxygen therapy Status: Chronic (12) Morbid obesity with BMI of 40.0-44.9, adult Status: Chronic (13) Intertriginous candidiasis Assessment 06/05/2016-Velez GI bleed-most likely secondary to diverticular bleed in a patient on Naprosyn. Acute blood loss anemia-status post 3 units of blood. Hemoglobin is stable the past few days. Will DC every 6 hours hemoglobins. Repeat CBC tomorrow. Hypoxemia -likely secondary to pulmonary edema, will diurese today. Pulmonary edema-Bumex IV 1 today Hypertension-continue to hold losartan for now Allergic rhinitis-Poppy restarted Chronic kidney disease stage III-creatinine 0.9 today, likely lower than normal off of losartan Pulmonary hypertension Nocturnal hypoxia chronically on 3 L Morbid obesity Generalized weakness-PT and OT consulted. 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 Diuresis today and see if this helps with breathing CBC and basic metabolic profile in the morning Change Protonix to oral Greater than 35 minutes of time spent seeing and evaluating the patient and reviewing the chart today DVT Prophylaxis: SCD'S Code Status Full Code Hospital Course Summary Disclaimer The hospital course summary below is not to be considered part of the above Progress Note. Hospital Course Summary 05/31/16 Admit, observation status under Dr. Dunham. Code status: Full code. 1. Acute GI/rectal bleeding. - Trend hgb. - Protonix IV BID. - Consult Dr. Hernandez. - Stop naproxen. - NPO status. - Macrocytosis - check iron studies and B12 2. Lightheadedness/dizziness - up with assist - IVF: NS at 100 ml/hr. - check TSH, prealbumin 3. Chronic conditions - HTN - typically takes Valsartan, but with decreasing BP trends will hold for now. - Gout - allopurinol - Nocturnal oxygen. 06/01/16 ABLA - hgb continues to trend down; it was 14.5 on admission and this am was 8.9 (on recheck increased to 9.3). Iron, folate, B12 pending. GI bleed - EGD done yesterday showed moderate duodenitis. Continue clears ( though pt would like full liq if ok with surgery). ?colonoscopy Hypotension - BP 100/52 (MAP 68) at lunch today. Cont to hold valsartan and continue IVF. 06/02 Passing more blood rectally. No ab pain or nausea. Does feel more unsteady when up. Breathing fair-not congested or having cough. Needing O2 to help breathing feel comfortable. Iron studies and B12 normal. HGB decreased to 7.2 - given 1 unit. Recheck post transfusion 6.3 - will transfuse 2 more units. Recheck 1 hour post transfusion. 06/03/16 Anemia: Hemoglobin up to 8 following transfusion yesterday. She continues to be symptomatic with lightheadedness, dizziness and near syncope. Hypotension: Blood pressure was low yesterday, but shows improvement today. With her increase in upper extremity swelling, we'll decrease the rate of fluids. GI bleeding: Last bloody bowel movement was yesterday. Colonoscopy will not be done today. Continue to trend hemoglobin. Gold Green powder for intertriginous breakdown. 06/04/2016-Agustin GI bleed-seems to have resolved at this time. Possibly secondary to diverticular bleed in a patient on Naprosyn. Acute blood loss anemia-status post 3 units of blood. Hemoglobin is stable the past few days. Hypoxemia -will likely need to diurese, but patient does not want diuretic this evening. We'll check a chest x-ray tomorrow and likely diuresis tomorrow Chronic kidney disease stage III Pulmonary hypertension Nocturnal hypoxia chronically on 3 L Morbid obesity Generalized weakness Plan PT and OT consult tomorrow Chest x-ray in a.m. CBC and basic metabolic profile in the morning Possible diuresis tomorrow, with diuresis this evening if she is more short of breath. Greater than 50 minutes of time spent seeing and evaluating the patient, talking with her about her concerns, and making care plan. MAKAYLA VELEZ MD Jun 05, 2016 13:48
[2016-06-05] MEDS: PANTOPRAZOLE 40 MG TABLET PO SCH (17:04)
--- NOTE | 2016-06-05 19:38 | NUR ---
Shift Summary Patient alert and oriented x3. VSS. On 2L NC. Up with assist x1 to chair and bathroom today. Patient had adequate output. No stool today or signs of bleeding. Ate well at meals with no c/o n/v/d. Some c/o chronic pain in right shoulder, roll-on home medication applied. Otherwise no complaints of pain. SCD's in place and alarm on.
[2016-06-06] VITALS (8 sets, daily range): BP systolic 88–160; BP diastolic 63–86; PULSE 82–122; RESP 18–23; TEMP 98.1–98.8; O2SAT 79–96
--- NOTE | 2016-06-06 03:35 | NUR ---
SUMMARY PT ALERT AND ORIENTED. VITAL SIGNS STABLE. AMBULATORY WITH ASSIST. IN 3 LITERS O2 NC. IV INFILTRATED, REMOVED, PHYSICIAN NOTIFIED TIGER TEXT AND GAVE OK TO LEAVE IV OUT. PT DE-STATS QUICKLY WITH ACTIVITY, RECOVERS WELL WITH REST.
[2016-06-06] MEDS: PANTOPRAZOLE 40 MG TABLET PO SCH ×2 (05:54→17:41)
[2016-06-06 06:55] LABS: HCT - HEMATOCRIT 24.6 % (36-46); HGB - HEMOGLOBIN 7.8 GM/DL (12-16); MEAN CORPUSCULAR HGB 31.3 UUG (26-34); MEAN CORPUSCULAR HGB CONC(MCHC 31.7 GM/DL (31-37); MEAN CORPUSCULAR VOLUME 98.8 UM3 (80-100); MEAN PLATELET VOLUME 10.9 UM3 (9.4-12.4); RED BLOOD COUNT 2.49 M/MM3 (4.00-5.20); WBC - WHITE BLOOD COUNT 7.4 T/MM3 (4.5-11.0)
[2016-06-06 06:58] LABS: ANION GAP 10 MEQ/L (5-15); BUN/CREATININE RATIO 11 RATIO (6-26); CALCIUM 8.6 MG/DL (8.4-10.2); CHLORIDE 106 MEQ/L (98-107); CO2 - CARBON DIOXIDE 28 MEQ/L (22-30); CREATININE 0.9 MG/DL (0.7-1.2); GLOMERULAR FILTRATION RATE 60; GLUCOSE 106 MG/DL (65-110); MAGNESIUM 1.8 MG/DL (1.6-2.3); PHOSPHORUS 3.3 MG/DL (2.5-4.5); SODIUM 144 MEQ/L (134-144)
[2016-06-06 07:37] LABS: BAND NEUTROPHILS # 0.1 T/MM3; EOSINOPHILS # (MANUAL) 0.2 T/MM3 (0-0.5); LYMPHOCYTES # (MANUAL) 1.2 T/MM3 (1-4.8); METAMYELOCYTES # 0.1 T/MM3; MONOCYTES # (MANUAL) 0.3 T/MM3 (0-0.8); NEUTROPHILS #(MANUAL)-ABSOLUTE 5.5 T/MM3 (1.8-7.7); TOTAL CELLS COUNTED 100 %
[2016-06-06 07:38] LABS: ANISOCYTOSIS 1+
[2016-06-06] MEDS: ZINC OXIDE TOP PRN (10:18)
[2016-06-06] MEDS: ALLOPURINOL 100 MG TABLET PO SCH (10:18)
[2016-06-06] MEDS: MENTHOL TOP PRN (10:18)
[2016-06-06] MEDS: FEXOFENADINE 180 MG TABLET PO SCH (10:18)
[2016-06-06] MEDS: [UNRECOGNIZED DRUG - REMARK] TOP PRN (10:19)
--- NOTE | 2016-06-06 10:39 | DI ---
Indication: ITS.REASON: hypoxia, wheezing PROCEDURE: CHEST 1 VIEW: Encounter: Initial Comparison: None Findings: Hazy airspace opacity in the right lower lobe. Upper lung keane are clear. Possible trace right effusion. No pneumothorax. Heart size is at the upper limits of normal. Mediastinal contours and pulmonary vascularity are grossly normal. Impression: Right lower lobe airspace disease could be due to atelectasis, pneumonia or aspiration. .
--- NOTE | 2016-06-06 11:05 | PNPDOC ---
LIZZY PITTS SEAT BUILDER 06/06/16 1050: Subjective Date DATE: 06/06/16 TIME: 10:46 Subjective Julia was seen just before standing to reposition herself in the bed - she notes a little lightheadedness, which comes and goes, but seems to be better than what it was a couple of days ago. She insists on standing to reposition herself rather than having staff boost her up. She has had some wheezing - notes that she coughed up some sputum this morning. She denies abdominal pain. No bloody bowel movements but she hasn't had any bowel movements since her colonoscopy on 06/04; she has been passing flatus. She still feels edematous all over. Objective Vital Signs Vital signs Vital Signs Date Time Temp Pulse Resp B/P Pulse Ox O2 Delivery O2 Flow Rate FiO2 06/06/16 08:00 98.1 88 18 132/67 96 Nasal Cannula 2.00 Height (Feet): 5 Height (Inches): 5.00 Weight (Kilograms): 119.000 General General Appearance: Alert, Obese, Orientated x 3, Well Nourished, Well Developed, No Acute Distress Eyes (Brief) Eyes: FOUND: PERRL, NOT FOUND: scleral icterus ENMT (Brief) ENMT: FOUND: mucosa moist, NOT FOUND: pharnyx erythema Respiratory (Brief) Respiratory: FOUND: rales, wheezes Cardiovascular (Brief) Cardiac: FOUND: regular rate, regular rhythm Abdomen (Brief) Abdominal: FOUND: BS normo active x4, soft, NOT FOUND: distended Extremities (Brief) Extremity : Extremity: leg Extremity Finding: FOUND: edema (trace) Musculoskeletal (Brief) Musculoskeletal: NOT FOUND: tenderness Integumentary (Brief) Integumentary: FOUND: dry, warm Psychiatric (Brief) Psychiatric: FOUND: alert, attentive, normal affect, oriented Laboratory Laboratory Laboratory Tests 06/05/16 05:17 06/06/16 05:24 Laboratory Tests 06/04/16 15:55 06/04/16 21:38 06/05/16 05:17 06/05/16 10:25 06/06/16 05:24 Assessment & Plan Problems: (1) Acute blood loss anemia Status: Acute Assessment & Plan: 06/02: Transfused total of 3 units pRBC (2) GI bleeding Status: Acute Qualifiers: GI bleed type/associated pathology: unspecified gastrointestinal hemorrhage type Qualified Codes: K92.2 - Gastrointestinal hemorrhage, unspecified Assessment & Plan: EGD on 05/31/16 Moderate duodenitis (3) Macrocytosis (4) HTN (hypertension) Status: Chronic (5) Pulmonary HTN Assessment & Plan: Echo 07/2015: EF 70%, Grade II Diastolic Dysfunction, Severely dilated left atrium, mild-moderate MR, mild MS, moderate TR, moderate PH (6) Gout Status: Chronic (7) Urge and stress incontinence Status: Chronic (8) Allergic rhinitis Status: Chronic (9) Chronic low back pain Status: Chronic (10) CKD (chronic kidney disease), stage III Status: Chronic (11) Dependence on nocturnal oxygen therapy Status: Chronic (12) Morbid obesity with BMI of 40.0-44.9, adult Status: Chronic (13) Intertriginous candidiasis Assessment GI bleed-most likely secondary to diverticular bleed in a patient on Naprosyn. Acute blood loss anemia-status post 3 units of blood. Hypoxemia. Pulmonary edema-Bumex IV 1 today Hypertension-continue to hold losartan for now Allergic rhinitis-Poppy restarted Chronic kidney disease stage III-creatinine 0.9 today, likely lower than normal off of losartan Pulmonary hypertension Nocturnal hypoxia chronically on 3 L Morbid obesity Generalized weakness-PT and OT consulted. 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 IS. Low grade temp of 99.4 last night; occasional tachypnea and tachycardia. WBC normal. She was diuresed yesterday with Bumex 1 mg IV. Wt trends are decreasing. Unable to capture accurate I&O d/t incontinence. Following discussion with Dr. Velez - will give Bumex 1 mg orally x1 now; consider Rocephin (waiting on midline). Diverticular GI bleed - hgb 7.8 this am. Still slightly symptomatic with lightheadedness. Recheck in am. Peripheral IV site infiltrated - will place midline today. BP stabilized - will discuss resumption of losartan with attending; check orthostatics BID. IRU screen pending. DVT Prophylaxis: SCD'S Code Status Full Code Hospital Course Summary Disclaimer The hospital course summary below is not to be considered part of the above Progress Note. Hospital Course Summary 4/3/17 Admit, observation status under Dr. Dunham. Code status: Full code. 1. Acute GI/rectal bleeding. - Trend hgb. - Protonix IV BID. - Consult Dr. Hernandez. - Stop naproxen. - NPO status. - Macrocytosis - check iron studies and B12 2. Lightheadedness/dizziness - up with assist - IVF: NS at 100 ml/hr. - check TSH, prealbumin 3. Chronic conditions - HTN - typically takes Valsartan, but with decreasing BP trends will hold for now. - Gout - allopurinol - Nocturnal oxygen. 06/01/16 ABLA - hgb continues to trend down; it was 14.5 on admission and this am was 8.9 (on recheck increased to 9.3). Iron, folate, B12 pending. GI bleed - EGD done yesterday showed moderate duodenitis. Continue clears ( though pt would like full liq if ok with surgery). ?colonoscopy Hypotension - BP 100/52 (MAP 68) at lunch today. Cont to hold valsartan and continue IVF. 06/02 Passing more blood rectally. No ab pain or nausea. Does feel more unsteady when up. Breathing fair-not congested or having cough. Needing O2 to help breathing feel comfortable. Iron studies and B12 normal. HGB decreased to 7.2 - given 1 unit. Recheck post transfusion 6.3 - will transfuse 2 more units. Recheck 1 hour post transfusion. 06/03/16 Anemia: Hemoglobin up to 8 following transfusion yesterday. She continues to be symptomatic with lightheadedness, dizziness and near syncope. Hypotension: Blood pressure was low yesterday, but shows improvement today. With her increase in upper extremity swelling, we'll decrease the rate of fluids. GI bleeding: Last bloody bowel movement was yesterday. Colonoscopy will not be done today. Continue to trend hemoglobin. Gold Green powder for intertriginous breakdown. 06/04/2016-Velez GI bleed-seems to have resolved at this time. Possibly secondary to diverticular bleed in a patient on Naprosyn. Acute blood loss anemia-status post 3 units of blood. Hemoglobin is stable the past few days. Hypoxemia -will likely need to diurese, but patient does not want diuretic this evening. We'll check a chest x-ray tomorrow and likely diuresis tomorrow Chronic kidney disease stage III Pulmonary hypertension Nocturnal hypoxia chronically on 3 L Morbid obesity Generalized weakness Plan PT and OT consult tomorrow Chest x-ray in a.m. CBC and basic metabolic profile in the morning Possible diuresis tomorrow, with diuresis this evening if she is more short of breath. 06/06/16 Cough, hypoxia, rales, wheezing - CXR yesterday revealed RLL opacity - Start DuoNeb treatments; cont. IS. Low grade temp of 99.4 last night; occasional tachypnea and tachycardia. WBC normal. She was diuresed yesterday with Bumex 1 mg IV. Wt trends are decreasing. Unable to capture accurate I&O d/t incontinence. Following discussion with Dr. Velez - will give Bumex 1 mg orally x1 now; consider Rocephin (waiting on midline). Diverticular GI bleed - hgb 7.8 this am. Still slightly symptomatic with lightheadedness. Recheck in am. Peripheral IV site infiltrated - will place midline today. BP stabilized - will discuss resumption of losartan with attending; check orthostatics BID. MAKAYLA VELEZ MD 06/06/16 1209: Assessment & Plan Assessment 06/06/2016-I reviewed this chart, the patient history, and the SEAT BUILDER's/PA's documented findings as above. We discussed and formulated the assessment and plan as above with the additions below.-Dr. Velez The patient complains of a little more shortness of breath today. She is coughing up some phlegm that is yellowish. She does notice postnasal drainage and some dryness in her throat that has been present for a couple of days. She has not had any fevers, chills or sweats. White count is normal. Chest x-ray shows questionable infiltrate that could be atelectasis versus pneumonia. She does feel lightheaded when she stands up. On exam she is alert and oriented 3 and in no acute distress. Oropharynx is moist. Chest reveals expiratory wheezes throughout the lung keane. Abdomen is soft and nontender.Regarding wheezing, the patient did get a breathing treatment and will continue those 4 times a day. Will give Bumex today. 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 Check nasal swab to rule out respiratory viruses. Recommend incentive spirometer 10 times an hour while awake. Infiltrate could be pneumonia but she is afebrile and white count is normal without significant shift. The patient would prefer not to be on an antibiotic if possible. Will reevaluate tomorrow with CBC and recheck vitals. Check orthostatic vitals and consider transfusion if she has significant orthostasis. Regarding poor IV access, will place midline today. We'll add oral B 12 since B- 12 is borderline low in the 300s. LIZZY PITTS SEAT BUILDER Jun 06, 2016 10:50 MAKAYLA VELEZ MD Jun 06, 2016 12:09
[2016-06-06] MEDS ORDERED: BUMETANIDE 1 MG TABLET PO ONE (11:15)
[2016-06-06] MEDS: ALBUTEROL/IPRATROPIUM INHAL. 2.5mg-0.5mg/3ml Neb. AEROSOL SCH ×3 (11:21→20:55)
[2016-06-06] MEDS: CYANOCOBALAMIN (B-12) 500mcg TABLET PO SCH (12:07)
--- NOTE | 2016-06-06 16:30 | NUR ---
Orthostatic BP/Dr. Notified Dr. Velez notified that patient's BP 88/56 while lying down and 160/86 while sitting, and patient refused to have standing pressure checked due to lightheadedness. Pulse also elevated, 120 at each position and irregular. No further orders at this time.
--- NOTE | 2016-06-06 17:52 | NUR ---
Shift Summary Patient alert and oriented x3 this shift. VSS, except for orthostatic vitals checked at 1600, see previous note. On 2L NC. Patient c/o intermittent lightheadedness today. Patient up to recliner this morning and ambulated to bathroom with assist x1, gb and cane. Patient has had significant urine output after bumex given. No BM today. Patient very particular with cares. Adequate oral intake today with no n/v. Midline placed in left forearm, flushes and aspirates well. Placed on droplet precautions this afternoon for positive entero/rhinovirus PCR.
--- NOTE | 2016-06-06 22:16 | NUR ---
status Pt A/O x3, stable on 2L takes off when ambulating to BSC. Pt refuses to go all the way to bathroom, did get her to use BSC, explained we did not want her to sit in urine. Urine output good for shift, no BM. Pt denies pain, does have shoulder pain if pulled on while getting out of bed.
[2016-06-07] VITALS (11 sets, daily range): BP systolic 146–191; BP diastolic 67–91; PULSE 89–123; RESP 18–20; TEMP 97.2–97.7; O2SAT 90–98
[2016-06-07] MEDS ORDERED: ALBUTEROL INH.SOLN. 2.5mg/3ml (0.083%) Neb. AEROSOL PRN (02:00)
[2016-06-07] MEDS: PANTOPRAZOLE 40 MG TABLET PO SCH ×2 (05:23→18:42)
[2016-06-07 05:28] LABS: BASOPHILS % (AUTO) 0.3 % (0-2); EOSINOPHILS # (AUTO) 0.2 T/MM3 (0-0.5); EOSINOPHILS % (AUTO) 3.4 % (0-4); HCT - HEMATOCRIT 25.6 % (36-46); HGB - HEMOGLOBIN 8.1 GM/DL (12-16); IMMATURE GRANULOCYTE # (AUTO) 0.03 T/MM3 (0.00-0.03); IMMATURE GRANULOCYTE % (AUTO) 0.4 % (0.0-0.5); LYMPHOCYTES # (AUTO) 1.4 T/MM3 (1-4.8); LYMPHOCYTES % (AUTO) 20.8 % (23-45); MEAN CORPUSCULAR HGB 31.3 UUG (26-34); MEAN CORPUSCULAR HGB CONC(MCHC 31.6 GM/DL (31-37); MEAN CORPUSCULAR VOLUME 98.8 UM3 (80-100); MEAN PLATELET VOLUME 10.3 UM3 (9.4-12.4); MONOCYTES # (AUTO) 0.8 T/MM3 (0-0.8); MONOCYTES % (AUTO) 12.2 % (0-9.0); NEUTROPHILS #(AUTO)-ABSOLUTE 4.2 T/MM3 (1.8-7.7); NEUTROPHILS % (AUTO) 62.9 % (33-66); RED BLOOD COUNT 2.59 M/MM3 (4.00-5.20); WBC - WHITE BLOOD COUNT 6.7 T/MM3 (4.5-11.0)
[2016-06-07 05:30] LABS: ANION GAP 10 MEQ/L (5-15); BUN/CREATININE RATIO 15 RATIO (6-26); CALCIUM 8.6 MG/DL (8.4-10.2); CHLORIDE 100 MEQ/L (98-107); CO2 - CARBON DIOXIDE 33 MEQ/L (22-30); CREATININE 0.8 MG/DL (0.7-1.2); GLOMERULAR FILTRATION RATE 69; GLUCOSE 111 MG/DL (65-110); POTASSIUM 3.3 MEQ/L (3.6-5); SODIUM 143 MEQ/L (134-144)
--- NOTE | 2016-06-07 07:42 | NUR ---
SHIFT REPORT: PT IS A&OX3, ON 2L OXYGEN NC, DENIES SOA, N/V, OR PAIN. PT IS ON DROPLET PRECAUTIONS FOR ENTERO/RHINO VIRUS. 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 ORTHO STATIC VITALS - ONLY ABLE TO OBTAIN LYING DOWN AND SITTING UP PT WAS CONCERNED WITH STANDING ON HER FEET. PT IS INCONTINENT; CALLED A FEW TIMES TO USE THE BEDSIDE COMMODE, BUT ONLY PASSED DARVIN (KIARA PAD WOULD BE FOUND WET). CALL LIGHT WITHIN REACH, BED ALARM ON.
[2016-06-07] MEDS: CYANOCOBALAMIN (B-12) 500mcg TABLET PO SCH (08:35)
[2016-06-07] MEDS: ZINC OXIDE TOP PRN (08:35)
[2016-06-07] MEDS: FEXOFENADINE 180 MG TABLET PO SCH (08:35)
[2016-06-07] MEDS: MENTHOL TOP PRN (08:35)
[2016-06-07] MEDS: ALLOPURINOL 100 MG TABLET PO SCH (08:35)
[2016-06-07] MEDS: ALBUTEROL/IPRATROPIUM INHAL. 2.5mg-0.5mg/3ml Neb. AEROSOL SCH (08:51)
--- NOTE | 2016-06-07 09:26 | DI ---
INDICATION: ITS.REASON: hypoxia; RLL opacity PROCEDURE: CHEST 2-VIEWS UPRIGHT (PA \T\ LAT) Encounter: Initial COMPARISON: June 05, 2016 FINDINGS: Improved aeration of the right lower lobe. There is some linear atelectasis or scarring in the left midlung and left base. No pneumothorax or effusion. Heart size and mediastinal contours are stable. Pulmonary vascularity appears normal. Impression: Improving aeration of the right lower lobe. .
[2016-06-07] MEDS ORDERED: POTASSIUM CHLORIDE 20 MEQ TABLET PO ONE ×2 (10:15→12:30)
--- NOTE | 2016-06-07 14:45 | NUR ---
YAAKOV CM IN TO VISIT WITH PT. CM UPDATED WHITE BOARD. PT REPORTS SHE WANTS TO GO TO IRU FOR PHYSICAL THERAPY BUT THAT SHE DOES HAVE TIES TO [facility] IF SHE CAN NOT GO TO IRU. PT AWARE TO CALL CM SHOULD NEEDS ARISE.
--- NOTE | 2016-06-07 15:24 | PNPDOC ---
LIZZY PITTS THRASHER FEEDER 06/07/16 1505: Subjective Date DATE: 06/07/16 TIME: 15:02 Subjective Jluia has numerous concerns today - she is worried about low K, only having a small BM (but there was no blood), lightheadedness and fast HR after DuoNeb, worried about not being able to go to IRU. Her positional lightheadedness overall is improving but still comes and goes. She denies any chest pain. No abdominal pain. She is urinating frequently. She wonders if she should try to increase her fluid intake and take a stool softener. She states that she does have some physical limitations doing some of the activities that PT asks her to do. Objective Vital Signs Vital signs Vital Signs Date Time Temp Pulse Resp B/P Pulse Ox O2 Delivery O2 Flow Rate FiO2 06/07/16 08:51 18 94 06/07/16 08:50 100 06/07/16 08:04 159/72 06/07/16 08:04 97.2 Room Air 06/07/16 00:25 2.00 Height (Feet): 5 Height (Inches): 5.00 Weight (Kilograms): 115.900 General General Appearance: Alert, Obese, Orientated x 3, Well Nourished, Well Developed, No Acute Distress Eyes (Brief) Eyes: FOUND: PERRL, NOT FOUND: scleral icterus ENMT (Brief) ENMT: FOUND: mucosa moist, NOT FOUND: pharnyx erythema Respiratory (Brief) Respiratory: FOUND: rales (b/l bases) Cardiovascular (Brief) Cardiac: FOUND: regular rate, regular rhythm Abdomen (Brief) Abdominal: FOUND: BS normo active x4, soft, NOT FOUND: distended, tender Extremities (Brief) Extremity : Side: Bilateral Extremity Finding: FOUND: edema (trace) Musculoskeletal (Brief) Musculoskeletal: NOT FOUND: tenderness (calves soft nttp) Integumentary (Brief) Integumentary: FOUND: dry, warm Psychiatric (Brief) Psychiatric: FOUND: alert, attentive, normal affect, oriented Laboratory Laboratory Laboratory Tests 06/06/16 05:24 06/07/16 05:02 Laboratory Tests 06/06/16 05:24 06/07/16 05:02 Microbiology Microbiology Microbiology Date/Time Source Procedure Growth Status 06/06/16 14:32 Sputum Expectorated Sputum Gram Stain - Final Resulted 06/06/16 14:32 Sputum Expectorated Sputum Sputum Culture - Preliminary CULTURE INITIATED - RESULTS PENDING Resulted Assessment & Plan Problems: (1) Hypokalemia Status: Acute (2) Acute blood loss anemia Status: Acute Assessment & Plan: 06/02: Transfused total of 3 units pRBC (3) GI bleeding Status: Resolved Qualifiers: GI bleed type/associated pathology: unspecified gastrointestinal hemorrhage type Qualified Codes: K92.2 - Gastrointestinal hemorrhage, unspecified Assessment & Plan: EGD on 05/31/16 Moderate duodenitis (4) Macrocytosis (5) HTN (hypertension) Status: Chronic (6) Pulmonary HTN Assessment & Plan: Echo 07/2015: EF 70%, Grade II Diastolic Dysfunction, Severely dilated left atrium, mild-moderate MR, mild MS, moderate TR, moderate PH (7) Gout Status: Chronic (8) Urge and stress incontinence Status: Chronic (9) Allergic rhinitis Status: Chronic (10) Chronic low back pain Status: Chronic (11) CKD (chronic kidney disease), stage III Status: Chronic (12) Dependence on nocturnal oxygen therapy Status: Chronic (13) Morbid obesity with BMI of 40.0-44.9, adult Status: Chronic (14) Intertriginous candidiasis Plan/Intensity of Service Resp panel pos for entero/rhinovirus - she occ. needs oxygen. DuoNeb gives her palpitations and makes her feel lightheaded - will change to Xopenex. hypokalemia - oral replacement ordered CXR this am showed improvement. hgb stable. Had small bm today - no blood noted. Declined to IRU - CM is going to check with SNF at [facility]. D/W Dr. Dunham. DVT Prophylaxis: SCD'S Code Status Full Code Hospital Course Summary Disclaimer The hospital course summary below is not to be considered part of the above Progress Note. Hospital Course Summary 05/31/16 Admit, observation status under Dr. Dunham. Code status: Full code. 1. Acute GI/rectal bleeding. - Trend hgb. - Protonix IV BID. - Consult Dr. Hernandez. - Stop naproxen. - NPO status. - Macrocytosis - check iron studies and B12 2. Lightheadedness/dizziness - up with assist - IVF: NS at 100 ml/hr. - check TSH, prealbumin 3. Chronic conditions - HTN - typically takes Valsartan, but with decreasing BP trends will hold for now. - Gout - allopurinol - Nocturnal oxygen. 06/01/16 ABLA - hgb continues to trend down; it was 14.5 on admission and this am was 8.9 (on recheck increased to 9.3). Iron, folate, B12 pending. GI bleed - EGD done yesterday showed moderate duodenitis. Continue clears ( though pt would like full liq if ok with surgery). ?colonoscopy Hypotension - BP 100/52 (MAP 68) at lunch today. Cont to hold valsartan and continue IVF. 06/02 Passing more blood rectally. No ab pain or nausea. Does feel more unsteady when up. Breathing fair-not congested or having cough. Needing O2 to help breathing feel comfortable. Iron studies and B12 normal. HGB decreased to 7.2 - given 1 unit. Recheck post transfusion 6.3 - will transfuse 2 more units. Recheck 1 hour post transfusion. 06/03/16 Anemia: Hemoglobin up to 8 following transfusion yesterday. She continues to be symptomatic with lightheadedness, dizziness and near syncope. Hypotension: Blood pressure was low yesterday, but shows improvement today. With her increase in upper extremity swelling, we'll decrease the rate of fluids. GI bleeding: Last bloody bowel movement was yesterday. Colonoscopy will not be done today. Continue to trend hemoglobin. Gold Green powder for intertriginous breakdown. 06/04/2016-Velez GI bleed-seems to have resolved at this time. Possibly secondary to diverticular bleed in a patient on Naprosyn. Acute blood loss anemia-status post 3 units of blood. Hemoglobin is stable the past few days. Hypoxemia -will likely need to diurese, but patient does not want diuretic this evening. We'll check a chest x-ray tomorrow and likely diuresis tomorrow Chronic kidney disease stage III Pulmonary hypertension Nocturnal hypoxia chronically on 3 L Morbid obesity Generalized weakness Plan PT and OT consult tomorrow Chest x-ray in a.m. CBC and basic metabolic profile in the morning Possible diuresis tomorrow, with diuresis this evening if she is more short of breath. 06/06/16 Cough, hypoxia, rales, wheezing - CXR yesterday revealed RLL opacity - Start DuoNeb treatments; cont. IS. Low grade temp of 99.4 last night; occasional tachypnea and tachycardia. WBC normal. She was diuresed yesterday with Bumex 1 mg IV. Wt trends are decreasing. Unable to capture accurate I&O d/t incontinence. Following discussion with Dr. Velez - will give Bumex 1 mg orally x1 now; consider Rocephin (waiting on midline). Diverticular GI bleed - hgb 7.8 this am. Still slightly symptomatic with lightheadedness. Recheck in am. Peripheral IV site infiltrated - will place midline today. BP stabilized - will discuss resumption of losartan with attending; check orthostatics BID. 06/07/16 Resp panel pos for entero/rhinovirus - she occ. needs oxygen. DuoNeb gives her palpitations and makes her feel lightheaded - will change to Xopenex. hypokalemia - oral replacement ordered CXR this am showed improvement. hgb stable. Had small bm today - no blood noted. Declined to IRU - CM is going to check with SNF at [facility]. KAYA DUNHAM MD 06/07/16 5775: Assessment & Plan Problems: (1) Acute blood loss anemia Status: Acute Assessment & Plan: 06/02: Transfused total of 3 units pRBC (2) GI bleeding Status: Resolved Qualifiers: GI bleed type/associated pathology: unspecified gastrointestinal hemorrhage type Qualified Codes: K92.2 - Gastrointestinal hemorrhage, unspecified Assessment & Plan: EGD on 05/31/16 Moderate duodenitis (3) Hypokalemia Status: Acute Assessment & Plan: Not POA (4) Macrocytosis (5) HTN (hypertension) Status: Chronic (6) Pulmonary HTN Assessment & Plan: Echo 07/2015: EF 70%, Grade II Diastolic Dysfunction, Severely dilated left atrium, mild-moderate MR, mild MS, moderate TR, moderate PH (7) Gout Status: Chronic (8) Urge and stress incontinence Status: Chronic (9) Allergic rhinitis Status: Chronic (10) Chronic low back pain Status: Chronic (11) CKD (chronic kidney disease), stage III Status: Chronic (12) Dependence on nocturnal oxygen therapy Status: Chronic (13) Morbid obesity with BMI of 40.0-44.9, adult Status: Chronic (14) Intertriginous candidiasis Plan/Intensity of Service Have independently interviewed and examined pt. Chart reviewed. Case discussed with CM and my THRASHER FEEDER. Care plan developed with my supervision; agree with above. Doing fair. Note she feels more SOA, no cough but some wheezes. O2 sats do decrease, needing O2. No pain with breathing. Strength decreased. Having frustration with therapy. Having frustration with nursing. Stools slow-no blood. Tolerating oral intake. Lungs: decreased, scattered wheezes. CV: regular AB: soft NT/ND +BS MSE: awake alert appropriate Plan: Replace potassium. Encourage activities and therapy. Encourage deep breathing exercises. Start Colace to help decrease risk for constipation. Recheck lab in am. IRU declined. Looking into skilled at [facility]. Acute needs decreasing; anticipate d/c in near future. LIZZY PITTS THRASHER FEEDER Jun 07, 2016 15:05 KAYA DUNHAM MD Jun 07, 2016 17:55
--- NOTE | 2016-06-07 15:32 | NUR ---
[facility] NOTIFIED OF PENDING DC PER MESSAGE LEFT FOR TROY AT [phone] EXT. [phone]
[2016-06-07] MEDS: LEVALBUTEROL INH.SOLN. 1.25mg/3ml Neb. AEROSOL SCH ×2 (16:55→21:00)
--- NOTE | 2016-06-07 20:06 | NUR ---
SHIFT SUMMARY PT ALERT AND ORIENTED X3. PT IS DIRECT WITH REQUESTS, NOT ALWAYS COOPERATIVE WITH CARES. WHEN GIVEN OPTIONS IN REGARDS TO DAILY CARES, AMBULATION, OR BED ACTIVITY, PT STATES 'NO, I'LL DO THAT WHEN I'M READY. AND I WILL DECIDE WHEN I AM READY.' PT FREQUENTLY INTERRUPTS CONVERSATION. PT REQUESTS OXYGEN 2L/NC FOR COMFORT, REFUSES TO REMOVE. PT DENIES PAIN AT THIS TIME, DENIES N/V. UP WITH STAND BY ASSIST, GAIT BELT, CANE. UP IN RECLINER FOR PART OF TODAY. PT REPORTS 'MY HEAD FEELS FUNNY SOMETIMES WHEN I GET UP. I'M NOT DIZZY, AND I'M NOT REALLY LIGHTHEADED. IT JUST FEELS FUNNY.' PT STEADY ON FEET. IVL LEFT FOREARM MIDLINE PATENT, UNABLE TO ASPIRATE THIS SHIFT. ADEQUATE URINE OUTPUT, PT INCONTINENT AT TIMES. PT MAKES NEEDS KNOWN. BED ALARM ON, CALL LIGHT WITHIN REACH.
[2016-06-07] MEDS: DOCUSATE SODIUM 100 MG CAPSULE PO SCH (20:37)
[2016-06-08] VITALS (11 sets, daily range): BP systolic 140–154; BP diastolic 68–87; PULSE 80–111; RESP 17–20; TEMP 96.4–98.7; O2SAT 92–98
[2016-06-08] MEDS: [UNRECOGNIZED DRUG - REMARK] TOP PRN (01:25)
--- NOTE | 2016-06-08 01:30 | NUR ---
elim assisted to BR, denies dizziness as up. Soft formed brown stool. Is inc. of urine, also voids in toilet
[2016-06-08] MEDS: LEVALBUTEROL INH.SOLN. 1.25mg/3ml Neb. AEROSOL SCH ×5 (01:46→20:53)
[2016-06-08 05:51] LABS: ANION GAP 8 MEQ/L (5-15); BUN/CREATININE RATIO 16 RATIO (6-26); CALCIUM 8.6 MG/DL (8.4-10.2); CHLORIDE 101 MEQ/L (98-107); CO2 - CARBON DIOXIDE 35 MEQ/L (22-30); CREATININE 0.8 MG/DL (0.7-1.2); GLOMERULAR FILTRATION RATE 69; GLUCOSE 115 MG/DL (65-110); MAGNESIUM 1.8 MG/DL (1.6-2.3); POTASSIUM 3.8 MEQ/L (3.6-5); SODIUM 144 MEQ/L (134-144)
[2016-06-08 05:54] LABS: BASOPHILS % (AUTO) 0.3 % (0-2); EOSINOPHILS # (AUTO) 0.3 T/MM3 (0-0.5); EOSINOPHILS % (AUTO) 4.2 % (0-4); HCT - HEMATOCRIT 23.2 % (36-46); HGB - HEMOGLOBIN 7.3 GM/DL (12-16); IMMATURE GRANULOCYTE # (AUTO) 0.01 T/MM3 (0.00-0.03); IMMATURE GRANULOCYTE % (AUTO) 0.2 % (0.0-0.5); LYMPHOCYTES # (AUTO) 1.2 T/MM3 (1-4.8); LYMPHOCYTES % (AUTO) 19.3 % (23-45); MEAN CORPUSCULAR HGB 31.3 UUG (26-34); MEAN CORPUSCULAR HGB CONC(MCHC 31.5 GM/DL (31-37); MEAN CORPUSCULAR VOLUME 99.6 UM3 (80-100); MEAN PLATELET VOLUME 10.2 UM3 (9.4-12.4); MONOCYTES # (AUTO) 0.7 T/MM3 (0-0.8); MONOCYTES % (AUTO) 10.8 % (0-9.0); NEUTROPHILS #(AUTO)-ABSOLUTE 4.1 T/MM3 (1.8-7.7); NEUTROPHILS % (AUTO) 65.2 % (33-66); RED BLOOD COUNT 2.33 M/MM3 (4.00-5.20); WBC - WHITE BLOOD COUNT 6.2 T/MM3 (4.5-11.0)
--- NOTE | 2016-06-08 05:54 | NUR ---
rest sleeps off and on, resp. unlabored at rest. Repositions self for comfort
--- NOTE | 2016-06-08 06:07 | NUR ---
lab Hgb of 7.3, text sent and read to telemed No orders given. Will report to day TATIANA
[2016-06-08] MEDS: PANTOPRAZOLE 40 MG TABLET PO SCH ×2 (06:42→17:09)
[2016-06-08] MEDS: DOCUSATE SODIUM 100 MG CAPSULE PO SCH ×2 (07:58→22:14)
[2016-06-08] MEDS: FEXOFENADINE 180 MG TABLET PO SCH (07:58)
[2016-06-08] MEDS: CYANOCOBALAMIN (B-12) 500mcg TABLET PO SCH (07:58)
[2016-06-08] MEDS: ACETAMINOPHEN 325 MG TABLET PO PRN (07:59)
[2016-06-08] MEDS: ALLOPURINOL 100 MG TABLET PO SCH (07:59)
--- NOTE | 2016-06-08 08:00 | NUR ---
STATUS PT ALERT AND ORIENTED. VITALS OBTAINED AND STABLE CHARTED. PT REPORTS PAIN TO HER SHOULDERS WITH MOVEMENT. TYLENOL 650 MG PO GIVEN. PT ASSISTED WITH BATH. RESTS QUIETLY AFTER CARES. WILL MONITOR.
--- NOTE | 2016-06-08 09:08 | NUR ---
IRU referral (Late entry for 06/07/16). Received IRU referral on patient and attempted to meet with patient at 1030 and she requested that I return at 1pm. Met with patient from [id number]. Reviewed programmatic expectations of IRU and patient verbally acknowledged need for 3 hours of therapy, 5 days/week. Her speech/conversation was observed to be hyperverbal and tangential. Three times she stated that she was running out of breath and needed to stop talking and was observed to pause for 1-2 seconds and then began talking again. It was a challenge to ask questions and receive responses regarding current issues, evidenced by patient sharing about past events and life experiences. Patient was observed to be critical of current healthcare workers. When asked again about her willingness to work with therapies in IRU, patient stated she would work when she felt like it. Case reviewed with Dr. Desai and Dr. Desai declined admission due to concern regarding ability to meet the 3 hour therapy requirement. CM and HYDROMETER FINISHER notified.
[2016-06-08] MEDS ORDERED: NORMAL SALINE 500 ML IV SCH (09:40)
--- NOTE | 2016-06-08 09:43 | NUR ---
CM CM MADE REFERRAL TO PLACE OF PT CHOICE.
--- NOTE | 2016-06-08 10:10 | PNPDOC ---
Subjective Date DATE: 06/08/16 TIME: 09:58 Subjective F/U: Acute GI bleed, acute Blood loss anemia Doing fair. Not passing bloody stools. Stools formed. No ab pain or nausea. Eating well. Breathing fair - notes SOA and wheezes at times. Needing O2. Does feel neb treatments helpful. Wonders about something for her chronic arthritic pain. No f/c. Objective Vital Signs Vital signs Vital Signs Date Time Temp Pulse Resp B/P Pulse Ox O2 Delivery O2 Flow Rate FiO2 06/08/16 07:57 111 154/87 06/08/16 07:38 96.4 17 95 Nasal Cannula 1.00 Height (Feet): 5 Height (Inches): 5.00 Weight (Kilograms): 115.800 General General Appearance: Alert, Obese, Well Nourished, Well Developed, Looks Stated Age Eyes (Brief) Eyes: FOUND: EOMI, PERRL, NOT FOUND: scleral icterus ENMT (Brief) ENMT: FOUND: hearing intact, mucosa moist Neck (Brief) Neck: FOUND: midline, NOT FOUND: nuchal rigidity, spasm Respiratory (Brief) Respiratory: FOUND: equal bilaterally, NOT FOUND: clear all keane (Decrease breath sounds, faint crackles. ), rales, wheezes Cardiovascular (Brief) Cardiac: FOUND: pedal edema (Trace ), regular rate, regular rhythm Abdomen (Brief) Abdominal: FOUND: BS normo active x4, soft, NOT FOUND: distended, tender Extremities (Brief) Extremity : Side: Bilateral Extremity: leg Extremity Finding: FOUND: edema (Trace), other (scd ) Musculoskeletal (Brief) Musculoskeletal: FOUND: extremities move equally, NOT FOUND: deformity, spasm Integumentary (Brief) Integumentary: FOUND: dry, warm Neurologic (Brief) Neurological: FOUND: cranial 2-12 intact, motor (Intact ) Psychiatric (Brief) Psychiatric: FOUND: alert, attentive, normal affect Laboratory Laboratory Laboratory Tests 06/07/16 05:02 06/08/16 05:21 Laboratory Tests 06/07/16 05:02 06/08/16 05:21 Microbiology Microbiology Microbiology Date/Time Source Procedure Growth Status 06/06/16 14:32 Sputum Expectorated Sputum Gram Stain - Final Resulted 06/06/16 14:32 Sputum Culture - Preliminary Normal Respiratory Meagan Resulted Assessment & Plan Problems: (1) Acute blood loss anemia Status: Acute Assessment & Plan: 06/02: Transfused total of 3 units pRBC 06/07: Transfusion of 1 unit pRBC. (2) GI bleeding Status: Resolved Qualifiers: GI bleed type/associated pathology: unspecified gastrointestinal hemorrhage type Qualified Codes: K92.2 - Gastrointestinal hemorrhage, unspecified Assessment & Plan: EGD on 05/31/16 - Moderate duodenitis. Likely diverticular bleeding. (3) Hypokalemia Status: Resolved Assessment & Plan: Not POA (4) Macrocytosis (5) HTN (hypertension) Status: Chronic Qualifiers: Hypertension type: essential hypertension Qualified Codes: I10 - Essential (primary) hypertension (6) Pulmonary HTN Status: Chronic Assessment & Plan: Echo 07/2015: EF 70%, Grade II Diastolic Dysfunction, Severely dilated left atrium, mild-moderate MR, mild MS, moderate TR, moderate PH (7) Gout Status: Chronic (8) Urge and stress incontinence Status: Chronic (9) Allergic rhinitis Status: Chronic (10) Chronic low back pain Status: Chronic (11) CKD (chronic kidney disease), stage III Status: Chronic (12) Dependence on nocturnal oxygen therapy Status: Chronic (13) Morbid obesity with BMI of 40.0-44.9, adult Status: Chronic (14) Intertriginous candidiasis Plan/Intensity of Service Will transfuse 1 unit pRBC due to HGB with decrease to 7.3 this am - with pt hypoxia due feel transfusion warranted. Continue Protonix due to duodenitis. Will try tramadol to see if this helps with pain. Encourage increasing activities as able. Recheck CBC in am due to anemia and transfusion. Repeat BMP in am due to medication use. CM working of Skilled placement. Case discussed with CM. Time spent with pt care 35 minutes. DVT Prophylaxis: SCD'S Code Status Full Code Hospital Course Summary Disclaimer The hospital course summary below is not to be considered part of the above Progress Note. Hospital Course Summary 05/31/16 Admit, observation status under Dr. Dunham. Code status: Full code. 1. Acute GI/rectal bleeding. - Trend hgb. - Protonix IV BID. - Consult Dr. Hernandez. - Stop naproxen. - NPO status. - Macrocytosis - check iron studies and B12 2. Lightheadedness/dizziness - up with assist - IVF: NS at 100 ml/hr. - check TSH, prealbumin 3. Chronic conditions - HTN - typically takes Valsartan, but with decreasing BP trends will hold for now. - Gout - allopurinol - Nocturnal oxygen. 06/01/16 ABLA - hgb continues to trend down; it was 14.5 on admission and this am was 8.9 (on recheck increased to 9.3). Iron, folate, B12 pending. GI bleed - EGD done yesterday showed moderate duodenitis. Continue clears ( though pt would like full liq if ok with surgery). ?colonoscopy Hypotension - BP 100/52 (MAP 68) at lunch today. Cont to hold valsartan and continue IVF. 06/02 Passing more blood rectally. No ab pain or nausea. Does feel more unsteady when up. Breathing fair-not congested or having cough. Needing O2 to help breathing feel comfortable. Iron studies and B12 normal. HGB decreased to 7.2 - given 1 unit. Recheck post transfusion 6.3 - will transfuse 2 more units. Recheck 1 hour post transfusion. 06/03/16 Anemia: Hemoglobin up to 8 following transfusion yesterday. She continues to be symptomatic with lightheadedness, dizziness and near syncope. Hypotension: Blood pressure was low yesterday, but shows improvement today. With her increase in upper extremity swelling, we'll decrease the rate of fluids. GI bleeding: Last bloody bowel movement was yesterday. Colonoscopy will not be done today. Continue to trend hemoglobin. Gold Green powder for intertriginous breakdown. 06/04/2016-Velez GI bleed-seems to have resolved at this time. Possibly secondary to diverticular bleed in a patient on Naprosyn. Acute blood loss anemia-status post 3 units of blood. Hemoglobin is stable the past few days. Hypoxemia -will likely need to diurese, but patient does not want diuretic this evening. We'll check a chest x-ray tomorrow and likely diuresis tomorrow PT and OT consult tomorrow Chest x-ray in a.m. CBC and basic metabolic profile in the morning Possible diuresis tomorrow, with diuresis this evening if she is more short of breath. 06/05 Increase activity as tolerated. Diuresis today and see if this helps with breathing CBC and basic metabolic profile in the morning Change Protonix to oral 06/06/16 Cough, hypoxia, rales, wheezing - CXR yesterday revealed RLL opacity - Start DuoNeb treatments; cont. IS. Low grade temp of 99.4 last night; occasional tachypnea and tachycardia. WBC normal. She was diuresed yesterday with Bumex 1 mg IV. Wt trends are decreasing. Unable to capture accurate I&O d/t incontinence. Following discussion with Dr. Velez - will give Bumex 1 mg orally x1 now; consider Rocephin (waiting on midline). Diverticular GI bleed - hgb 7.8 this am. Still slightly symptomatic with lightheadedness. Recheck in am. Peripheral IV site infiltrated - will place midline today. BP stabilized - will discuss resumption of losartan with attending; check orthostatics BID. 06/07/16 Resp panel pos for entero/rhinovirus - she occ. needs oxygen. DuoNeb gives her palpitations and makes her feel lightheaded - will change to Xopenex. hypokalemia - oral replacement ordered CXR this am showed improvement. hgb stable. Had small bm today - no blood noted. Declined to IRU - CM is going to check with SNF at [facility]. 06/08/16 Doing fair. Not passing bloody stools. Stools formed. No ab pain or nausea. Eating well. Breathing fair - notes SOA and wheezes at times. Needing O2. Does feel neb treatments helpful. Wonders about something for her chronic arthritic pain. No f/c. Will transfuse 1 unit pRBC due to HGB with decrease to 7.3 this am - with pt hypoxia due feel transfusion warranted. Continue Protonix due to duodenitis. Will try tramadol to see if this helps with pain. Encourage increasing activities as able. Recheck CBC in am due to anemia and transfusion. Repeat BMP in am due to medication use. CM working of Skilled placement. KAYA DUNHAM MD Jun 08, 2016 10:01
--- NOTE | 2016-06-08 10:50 | NUR ---
TELEMETRY TELEMETRY SHOWING AFIB WITH RATES ONE TEENS TO ONE THIRTIES. THIS IS REPORTED TO DR. MEZA. ORDER RECEIVED TO CONTINUE TO MONITOR AT THIS TIME.
[2016-06-08] MEDS ORDERED: TRAMADOL 50 MG TABLET PO PRN (11:30)
[2016-06-08] MEDS ORDERED: DiphenhydrAMINE 25 MG CAPSULE PO ONE (12:00)
--- NOTE | 2016-06-08 15:17 | NUR ---
PT NOTE: PT held this date due to pt's hgb and hct levels, RN reports pt to recive blood transfusion. Will continue to follow and treat according to POC. Please call [phone] with any questions.
--- NOTE | 2016-06-08 15:45 | NUR ---
STATUS PT TOLERATES BLOOD WITHOUT C/O'S. VITALS CONTINUE STABLE CHARTED. LAB IN TO DRAW POST TRANSFUSION HEMOGLOBIN. WILL MONITOR.
--- NOTE | 2016-06-08 18:00 | NUR ---
STATUS PT STATES SHE IS FEELING BETTER. SITS ON SIDE OF BED FOR SUPPER. DENIES FURTHER NEEDS. WILL MONITOR.
--- NOTE | 2016-06-08 20:00 | NUR ---
resp coarse breath sounds w/ wheezing at bases, bilat. Pt. denies dyspnea as rests in recliner, states cough is "better"
[2016-06-09] MEDS: ACETAMINOPHEN 325 MG TABLET PO PRN (00:22)
--- NOTE | 2016-06-09 00:25 | NUR ---
comfort requests tylenol for back pain and "pain from coughing"
[2016-06-09 00:37] VITALS: BP_SYST 138; BP_SYST 153; BP_DIAS 69; BP_DIAS 82; PULSE 93; PULSE 95
[2016-06-09 00:38] VITALS: BP 161/77; PULSE 120
--- NOTE | 2016-06-09 05:23 | NUR ---
REST SLEEPS FOR LONG INTERVALS, RESP. UNLABORED AT REST
[2016-06-09 05:30] LABS: BASOPHILS # (AUTO) 0.1 T/MM3 (0-0.2); BASOPHILS % (AUTO) 0.7 % (0-2); EOSINOPHILS # (AUTO) 0.5 T/MM3 (0-0.5); EOSINOPHILS % (AUTO) 7.1 % (0-4); HCT - HEMATOCRIT 30.2 % (36-46); HGB - HEMOGLOBIN 9.3 GM/DL (12-16); IMMATURE GRANULOCYTE # (AUTO) 0.13 T/MM3 (0.00-0.03); IMMATURE GRANULOCYTE % (AUTO) 1.9 % (0.0-0.5); LYMPHOCYTES # (AUTO) 1.7 T/MM3 (1-4.8); LYMPHOCYTES % (AUTO) 24.6 % (23-45); MEAN CORPUSCULAR HGB 29.9 UUG (26-34); MEAN CORPUSCULAR HGB CONC(MCHC 30.8 GM/DL (31-37); MEAN CORPUSCULAR VOLUME 97.1 UM3 (80-100); MEAN PLATELET VOLUME 10.7 UM3 (9.4-12.4); MONOCYTES # (AUTO) 0.5 T/MM3 (0-0.8); NEUTROPHILS #(AUTO)-ABSOLUTE 3.9 T/MM3 (1.8-7.7); NEUTROPHILS % (AUTO) 57.7 % (33-66); RED BLOOD COUNT 3.11 M/MM3 (4.00-5.20); WBC - WHITE BLOOD COUNT 6.8 T/MM3 (4.5-11.0)
[2016-06-09] MEDS: PANTOPRAZOLE 40 MG TABLET PO SCH (05:33)
[2016-06-09 05:35] LABS: ANION GAP 12 MEQ/L (5-15); BUN/CREATININE RATIO 15 RATIO (6-26); CALCIUM 9.2 MG/DL (8.4-10.2); CHLORIDE 100 MEQ/L (98-107); CO2 - CARBON DIOXIDE 32 MEQ/L (22-30); GLOMERULAR FILTRATION RATE 53; GLUCOSE 121 MG/DL (65-110); SODIUM 144 MEQ/L (134-144)
[2016-06-09 07:15] VITALS: O2SAT 94
[2016-06-09] MEDS: LEVALBUTEROL INH.SOLN. 1.25mg/3ml Neb. AEROSOL SCH ×2 (07:23→12:12)
[2016-06-09 08:00] VITALS: BP 138/67; PULSE 89; RESP 18; TEMP 97.4; O2SAT 93
[2016-06-09 09:00] VITALS: BP_SYST 143; BP_SYST 163; BP_SYST 168; BP_DIAS 77; BP_DIAS 91; BP_DIAS 98; PULSE 111; PULSE 85; PULSE 91
[2016-06-09] MEDS: FEXOFENADINE 180 MG TABLET PO SCH (09:32)
[2016-06-09] MEDS: CYANOCOBALAMIN (B-12) 500mcg TABLET PO SCH (09:32)
[2016-06-09] MEDS: ALLOPURINOL 100 MG TABLET PO SCH (09:32)
[2016-06-09] MEDS: DOCUSATE SODIUM 100 MG CAPSULE PO SCH (09:33)
--- NOTE | 2016-06-09 10:42 | PNPDOC ---
Subjective Date DATE: 06/09/16 TIME: 10:36 Subjective F/U: Acute GI bleed, acute Blood loss anemia Doing okay. Breathing feeling stable-some SOA and cough. No pain with breathing. Eating well. Stools slightly slow. No chest pain. Objective Vital Signs Vital signs Vital Signs Date Time Temp Pulse Resp B/P Pulse Ox O2 Delivery O2 Flow Rate FiO2 06/09/16 08:00 97.4 89 18 138/67 93 Nasal Cannula 2.00 Height (Feet): 5 Height (Inches): 5.00 Weight (Kilograms): 116.400 General General Appearance: Alert, Obese, Well Nourished, Well Developed, No Acute Distress, Looks Stated Age Eyes (Brief) Eyes: FOUND: EOMI, PERRL, NOT FOUND: scleral icterus ENMT (Brief) ENMT: FOUND: hearing intact, mucosa moist Neck (Brief) Neck: FOUND: midline, NOT FOUND: nuchal rigidity, spasm Respiratory (Brief) Respiratory: FOUND: other (no distress ), NOT FOUND: clear all keane ( Decreased bilaterally), rales, wheezes Cardiovascular (Brief) Cardiac: FOUND: regular rate, regular rhythm Abdomen (Brief) Abdominal: FOUND: BS normo active x4, soft, NOT FOUND: distended, tender Extremities (Brief) Extremity : Side: Bilateral Extremity: leg Extremity Finding: FOUND: edema (Trace ) Musculoskeletal (Brief) Musculoskeletal: FOUND: extremities move equally, NOT FOUND: deformity, spasm Integumentary (Brief) Integumentary: FOUND: dry, warm Neurologic (Brief) Neurological: FOUND: cranial 2-12 intact, motor (Intact ) Psychiatric (Brief) Psychiatric: FOUND: alert, normal affect, oriented Laboratory Laboratory Laboratory Tests 06/08/16 05:21 06/09/16 05:07 Laboratory Tests 06/08/16 05:21 06/08/16 16:16 06/09/16 05:07 Microbiology Microbiology Microbiology Date/Time Source Procedure Growth Status 06/06/16 14:32 Sputum Expectorated Sputum Gram Stain - Final Complete 06/06/16 14:32 Sputum Culture - Final Normal Respiratory Meagan Complete Assessment & Plan Problems: (1) Acute blood loss anemia Status: Acute Assessment & Plan: 06/02: Transfused total of 3 units pRBC 06/07: Transfusion of 1 unit pRBC. (2) GI bleeding Status: Resolved Qualifiers: GI bleed type/associated pathology: unspecified gastrointestinal hemorrhage type Qualified Codes: K92.2 - Gastrointestinal hemorrhage, unspecified Assessment & Plan: EGD on 05/31/16 - Moderate duodenitis. Likely diverticular bleeding. (3) Hypokalemia Status: Resolved Assessment & Plan: Not POA (4) Macrocytosis (5) HTN (hypertension) Status: Chronic Qualifiers: Hypertension type: essential hypertension Qualified Codes: I10 - Essential (primary) hypertension (6) Pulmonary HTN Status: Chronic Assessment & Plan: Echo 07/2015: EF 70%, Grade II Diastolic Dysfunction, Severely dilated left atrium, mild-moderate MR, mild MS, moderate TR, moderate PH (7) Gout Status: Chronic (8) Urge and stress incontinence Status: Chronic (9) Allergic rhinitis Status: Chronic (10) Chronic low back pain Status: Chronic (11) CKD (chronic kidney disease), stage III Status: Chronic (12) Dependence on nocturnal oxygen therapy Status: Chronic (13) Morbid obesity with BMI of 40.0-44.9, adult Status: Chronic (14) Intertriginous candidiasis Plan/Intensity of Service Will d/c to [facility] for skilled care. Continue with Protonix BID for duodenitis - hold NSAIDS. May restart valsartan. Encourage IS - wean O2 (uses at night). Encourage therapy to improve functional status. Could try tramadol for pain. Check CBC in 1 week due to anemia and BMP in 1 week due to medication use. F/U with Dr Clark in 1 week. See orders for details. Case discussed with CM. Time spent with pt care and discharge greater than 35 minutes. DVT Prophylaxis: SCD'S Code Status Full Code Hospital Course Summary Disclaimer The hospital course summary below is not to be considered part of the above Progress Note. Hospital Course Summary 05/31/16 Admit, observation status under Dr. Dunham. Code status: Full code. 1. Acute GI/rectal bleeding. - Trend hgb. - Protonix IV BID. - Consult Dr. Hernandez. - Stop naproxen. - NPO status. - Macrocytosis - check iron studies and B12 2. Lightheadedness/dizziness - up with assist - IVF: NS at 100 ml/hr. - check TSH, prealbumin 3. Chronic conditions - HTN - typically takes Valsartan, but with decreasing BP trends will hold for now. - Gout - allopurinol - Nocturnal oxygen. 06/01/16 ABLA - hgb continues to trend down; it was 14.5 on admission and this am was 8.9 (on recheck increased to 9.3). Iron, folate, B12 pending. GI bleed - EGD done yesterday showed moderate duodenitis. Continue clears ( though pt would like full liq if ok with surgery). ?colonoscopy Hypotension - BP 100/52 (MAP 68) at lunch today. Cont to hold valsartan and continue IVF. 06/02 Passing more blood rectally. No ab pain or nausea. Does feel more unsteady when up. Breathing fair-not congested or having cough. Needing O2 to help breathing feel comfortable. Iron studies and B12 normal. HGB decreased to 7.2 - given 1 unit. Recheck post transfusion 6.3 - will transfuse 2 more units. Recheck 1 hour post transfusion. 06/03/16 Anemia: Hemoglobin up to 8 following transfusion yesterday. She continues to be symptomatic with lightheadedness, dizziness and near syncope. Hypotension: Blood pressure was low yesterday, but shows improvement today. With her increase in upper extremity swelling, we'll decrease the rate of fluids. GI bleeding: Last bloody bowel movement was yesterday. Colonoscopy will not be done today. Continue to trend hemoglobin. Gold Green powder for intertriginous breakdown. 06/04/2016-Velez GI bleed-seems to have resolved at this time. Possibly secondary to diverticular bleed in a patient on Naprosyn. Acute blood loss anemia-status post 3 units of blood. Hemoglobin is stable the past few days. Hypoxemia -will likely need to diurese, but patient does not want diuretic this evening. We'll check a chest x-ray tomorrow and likely diuresis tomorrow PT and OT consult tomorrow Chest x-ray in a.m. CBC and basic metabolic profile in the morning Possible diuresis tomorrow, with diuresis this evening if she is more short of breath. 06/05 Increase activity as tolerated. Diuresis today and see if this helps with breathing CBC and basic metabolic profile in the morning Change Protonix to oral 06/06/16 Cough, hypoxia, rales, wheezing - CXR yesterday revealed RLL opacity - Start DuoNeb treatments; cont. IS. Low grade temp of 99.4 last night; occasional tachypnea and tachycardia. WBC normal. She was diuresed yesterday with Bumex 1 mg IV. Wt trends are decreasing. Unable to capture accurate I&O d/t incontinence. Following discussion with Dr. Velez - will give Bumex 1 mg orally x1 now; consider Rocephin (waiting on midline). Diverticular GI bleed - hgb 7.8 this am. Still slightly symptomatic with lightheadedness. Recheck in am. Peripheral IV site infiltrated - will place midline today. BP stabilized - will discuss resumption of losartan with attending; check orthostatics BID. 06/07/16 Resp panel pos for entero/rhinovirus - she occ. needs oxygen. DuoNeb gives her palpitations and makes her feel lightheaded - will change to Xopenex. hypokalemia - oral replacement ordered CXR this am showed improvement. hgb stable. Had small bm today - no blood noted. Declined to IRU - CM is going to check with SNF at [facility]. 06/08/16 Doing fair. Not passing bloody stools. Stools formed. No ab pain or nausea. Eating well. Breathing fair - notes SOA and wheezes at times. Needing O2. Does feel neb treatments helpful. Wonders about something for her chronic arthritic pain. No f/c. Will transfuse 1 unit pRBC due to HGB with decrease to 7.3 this am - with pt hypoxia due feel transfusion warranted. Continue Protonix due to duodenitis. Will try tramadol to see if this helps with pain. Encourage increasing activities as able. Recheck CBC in am due to anemia and transfusion. Repeat BMP in am due to medication use. CM working of Skilled placement. 06/08 Doing okay. Breathing feeling stable-some SOA and cough. No pain with breathing. Eating well. Stools slightly slow. No chest pain. Hemoglobin improved to 9.3. Will d/c to [facility] for skilled care. Continue with Protonix BID for duodenitis - hold NSAIDS. May restart valsartan. Encourage IS - wean O2 (uses at night). Encourage therapy to improve functional status. Could try tramadol for pain. Check CBC in 1 week due to anemia and BMP in 1 week due to medication use. F/U with Dr Clark in 1 week. See orders for details. KAYA DUNHAM MD Jun 09, 2016 10:41
[2016-06-09] MEDS ORDERED: PANT40TA27 PO (10:46)
[2016-06-09] MEDS ORDERED: LEVA1.2513 AEROSOL (10:46)
[2016-06-09] MEDS ORDERED: DOCU-168 PO (10:46)
[2016-06-09] MEDS ORDERED: TRAM50TA53 PO (10:46)
[2016-06-09] MEDS ORDERED: [UNRECOGNIZED DRUG - OTHER] TOP (10:46)
[2016-06-09] MEDS ORDERED: CYAN500T2 PO (10:46)
[2016-06-09] MEDS ORDERED: [UNRECOGNIZED DRUG - CODE] TOP (10:46)
--- NOTE | 2016-06-09 10:49 | PDOCECFAO ---
Admission Orders Admission Orders Admit to: Snf Allergies: Coded Allergies: neomycin (Verified Allergy, Intermediate, RASH, 05/31/16) amino acids (Verified Allergy, Unknown, 05/31/16) chromium (Verified Allergy, Unknown, 05/31/16) ergot alkaloids (Verified Allergy, Unknown, 05/31/16) acetaminophen (Verified Adverse Reaction, Unknown, NAUSEA, 05/31/16) hydrocodone (Verified Adverse Reaction, Unknown, NAUSEA, 05/31/16) meperidine (Verified Adverse Reaction, Unknown, "CRAZY", 05/31/16) morphine (Verified Adverse Reaction, Unknown, "CRAZY", 05/31/16) Admitting Diagnosis Gi Bleed Admitting Physician New Dunham MD Attending Physician Dr Clark Code Status Full Code Anticipated LOS: 30 days or less Rehab Potential: Fair Rehab Prognosis: Fair Diet: Soft May use Facility Protocol /SO: Yes May Have Flu Vaccine: Yes Evaluations/Treat: PT, OT Snf Certification I certify that SNF services are required to be given on an Inpatient basis because of the patients need for custodial care on a continuing basis for the condition(s) for which he/she received inpatient hospital services prior to his/her transfer to the SNF. SNF inpatient care is necessary for the following reasons Other (Skilled PT/OT to maximize functional status. [facility]FP to wean O2 ) Cardiac or Respiratory Arrest In Event of Arrest: Start CPR,call 911,to ER Resident is Aware of Diagnosis: Yes Additional Orders: F/U with Dr Clark in 1 week BMP in 1 week - Dx: Medication use CBC in 1 week - Dx: Anemia Use IS QID O2 at 2L nightly Wean O2 during day - use as needed to keep sats >88%. NEW DUNHAM MD Jun 09, 2016 10:49
--- NOTE | 2016-06-09 11:19 | NUR ---
YAAKOV NUNO PLACED CALL TO [facility] TALKED WITH POONAM PT WILL BE PICKED UP TODAY AT 1300, PT NOTIFIED OF PENDING [employer] HELPER TIME.
--- NOTE | 2016-06-09 12:00 | NUR ---
Status Patient alert and oriented x3 this shift. VSS. On 2L NC. Up with assist x1, gb and walker. Patient had adequate urine output today and soft, formed BM. However, patient states she still feels somewhat constipated. IVL left forearm midline, flushes well. Patient appears somewhat anxious about discharge today, is very focused on calling people to bring her clothes, deal with taxes, etc. Adequate oral intake today. Currently in room with visitor, awaiting discharge.
[2016-06-09 12:10] VITALS: O2SAT 92
--- NOTE | 2016-06-09 12:52 | NUR ---
CM D/C TIME OUT COMPLETE. ALL [facility]DERS SENT [facility]. POONAM WITH [facility] AWARE TO CONTACT CM IF NEEDS ARISE.
--- NOTE | 2016-06-09 13:05 | NUR ---
Discharge Patient discharged to [facility] at this time. Patient requested to have discharge packet, separate packet was printed out and given to patient. Packet for [facility] nurse printed and faxed. IV d/c'd, catheter tip intact. Belongings gathered and sent with patient. Patient left with transport person via wheelchair with oxygen.
--- NOTE | 2016-06-09 13:35 | NUR ---
PT NOTE: Pt D/C to therapy prior to treatment. D/C PT
--- NOTE | 2016-06-12 18:20 | DSF ---
ADMISSION DIAGNOSIS Acute GI bleed. DISCHARGE DIAGNOSIS Acute GI bleed--diverticular in nature. ASSOCIATED CONDITIONS AND COMPLICATIONS Moderate duodenitis. Marked sigmoid diverticulosis. Colonic pulposus. Acute blood loss anemia. Hypokalemia (not present on admission). Macrocytosis. Hypertension. Pulmonary hypertension. Gout. Osteoarthritis. Urge and stress incontinence. Allergic rhinitis. Chronic low back pain. Stage III chronic kidney disease. Intertriginous lee. Dependency on nocturnal oxygen. Morbid obesity with BMI 42.7. CONSULTS Dr. Hernandez--Surgery. PT, OT. PROCEDURES 05/31/2016: EGD. 06/02/2016: Transfusion of 3 units of packed red cells. 06/04/2016: Colonoscopy with polypectomy x2. 06/06/2016: Midline insertion. 06/08/2016: Transfusion of 1 unit packed red cells. CLINICAL RESUME Julia Holt is an 80-year-old female who presented to Dr. Clark' office secondary to rectal bleeding. She started passing bloody stools this morning and did bring in a container full of blood for Dr. Clark to evaluate. He did send her to the emergency room for further evaluation. Lab was obtained with hemoglobin 14.5 (baseline 16). MCV was 103. Chemistries were unremarkable. Hemodynamically she is stable, but blood pressure did show decrease in trend. She was given 500 mL normal saline bolus. During her stay in the Emergency Department, she did have two episodes of passing blood. Subsequently, Dr. Dunham was contacted and patient was initially placed in outpatient observation for further evaluation and treatment. The patient reports she did have an "explosive" diarrhea that started this morning. She reports a large amount of bright red blood that filled the toilet. This occurred on two episodes before she went in to see Dr. Clark. It appears there is some sediment or seeds in it (she was able to collect a sample at home). She has been on ibuprofen followed by Naprosyn for years. She has been trying to cut back on the Naprosyn recently and is hoping to stop it entirely in the near future. She is not to take aspirin secondary to history of gastric bleeding. She denies abdominal pain or cramping. She has no pain with passing bowel movements. She denies nausea and vomiting. She has been eating and drinking well prior today--really has not eaten anything day of presentation. She has felt lightheaded and dizzy. She denies any recent illness. She does have some fear about procedure secondary to not tolerating anesthesia well. For complete details of the H&P refer to that document. LABORATORY White blood count is 7.0, with hemoglobin 14.5, hematocrit 45.0, MCV 103.0, and platelets 170,000. Serum sodium is 143, potassium 4.7, chloride 104, CO2 29, BUN 25, creatinine 0.8, GFR 69, and blood glucose 124. Phosphorus is 3.3 with magnesium 1.8. Iron is 131, with TIBC 311, and ferritin 51.3. Vitamin B12 is 358 with folate greater than 20. TSH is 4.03. INR is 1.08. UA reveals low specific gravity at less than or equal to 1.005 with trace blood. Respiratory panel is positive for Enterovirus. HOSPITAL COURSE The patient was initially placed in outpatient observation status at [facility] under the care of Dr. Dunham. She was started on Protonix 40 mg IV b.i.d. for GI protection. We stopped her Naprosyn. She was made n.p.o. for bowel rest. Dr. Hernandez was consulted for surgical evaluation. IV fluids of normal saline was initiated at 100 mL an hour. With her blood pressure on the low side, we did hold her valsartan to minimize potential for hypotension. Hemoglobin did trend downward. By hospital day #1, his hemoglobin had decreased to 8.9. In light of her persistent bleeding and decreased hemoglobin, admission status was changed to inpatient. Dr. Hernandez did perform EGD on day of presentation which showed duodenitis, but it was not thought to be the etiology of her bleeding. We did monitor hemoglobin and ultimately patient required a total of four transfusions. She did tolerate blood product transfusion well. Ultimately she was able to undergo colonoscopy by Dr. Hernandez on 06/04/2016. Polyps were removed. While no definitive source of bleeding was identified, we felt symptoms were most consistent with diverticular bleeding. Her GI bleeding ultimately did stop. After colonoscopy we worked on increasing strength and functional status through use of PT and OT. Gains were slow. She did have episodes of shortness of breath, hypoxia, and wheezing. Nebulized treatments of DuoNeb were started and incentive spirometry was utilized. Respiratory panel ultimately did show RSV. Her functional status did decline during the hospitalization. This was multifactorial, with component of anemia (hemoglobin 9.3 at time of discharge) but also deconditioning from not being active as she is at home. We felt continued help in therapy would be prudent prior to patient returning home. Ultimately arrangements were made for a swing bed stay at [facility]. By time of discharge she was eating and drinking well. Hemoglobin had stabilized to 9.3. She is not passing blood. Her electrolytes were stable and renal function stable. Blood pressure was showing increase, and she was not having orthostatic hypotension. Valsartan will be restarted in the outpatient setting. NARRATIVE DISCLAIMER: Above narrative is a brief summary of the patient's hospitalization. For complete details of the hospital course, refer to the medical record. DISCHARGE CONDITION Stable/good. DIET Soft diet. ACTIVITIES Increase as tolerated. MEDICATIONS Vitamin B12 1000 mcg daily. Colace 100 mg b.i.d. to soften stools. Xopenex 1.25 mg nebulized q.i.d. x7 days. Gold Green Medicated Body Powder topically t.i.d. p.r.n. tinea. Protonix 40 mg a.c. b.i.d. for duodenitis. Tramadol 50 units every 4 hours p.r.n. pain. Topical Menthol 8% rub p.r.n. discomfort. Tylenol 650 mg q.i.d. p.r.n. Allopurinol 100 mg daily. Restore Tears p.r.n. Chlor-Trimeton 4 mg q.4h. p.r.n. Poppy 180 mg daily. Refresh PM ointment q.h.s. p.r.n. Systane eye drops q.i.d. p.r.n. Valsartan 160 mg daily. Stop Naprosyn. FOLLOWUP Patient work with PT and OT to maximize strength and functional status. Patient will follow with Dr. Clark in one week for reevaluation. CBC will be obtained in one week secondary to anemia. BMP will be obtained in one week secondary to medication use. INSTRUCTIONS TO PATIENT Patient was instructed on her diagnoses and treatments provided. She received informed consent prior to blood product transfusion. She received informed consent prior to EGD and colonoscopy. We encouraged the patient to participate well with therapy to maximize her strength and functional status. We encouraged her to be adherent with medications. We discussed potential side effects of tramadol. She will watch for worsening shortness of breath, cough, congestion, or further passing blood up through her gut. Should problems or need occur, she can be in contact with the nursing staff at [facility] as well as with Dr. Clark. If symptoms become quite dire, she can present to the emergency room for acute evaluation. She voiced understanding of the above. Time spent with discharge greater than 35 minutes. KRISTINA
== END 2016-06-09 13:56 | DRG 378 ==
LOC: ED 10:24 → EDHOLD 12:38 → MED 12:51 → OBSVTOIN 14:05 → INTOOBSV 14:05 → OBSVTOIN 06-01 14:05
PROVIDERS: ADMIT Hospitalist; ATTEND Hospitalist
PROC: 0DJ08ZZ Inspection of Upper Intestinal Tract, Via Natural or Artificial Opening Endoscopic (ICD-10-PCS; principal; 2016-05-31 16:03)
PROC: 30233N1 Transfusion of Nonautologous Red Blood Cells into Peripheral Vein, Percutaneous Approach (ICD-10-PCS; 2016-06-02)
PROC: 0DBN8ZX Excision of Sigmoid Colon, Via Natural or Artificial Opening Endoscopic, Diagnostic (ICD-10-PCS; 2016-06-04)
DX: K57.31 Diverticulosis of large intestine without perforation or abscess with bleeding (principal); D62 Acute posthemorrhagic anemia; Z68.41 Body mass index [BMI] 40.0-44.9, adult; K29.80 Duodenitis without bleeding; Z79.1 Long term (current) use of non-steroidal anti-inflammatories (NSAID); D12.5 Benign neoplasm of sigmoid colon; R42 Dizziness and giddiness; I12.9 Hypertensive chronic kidney disease with stage 1 through stage 4 chronic kidney disease, or unspecified chronic kidney disease; N18.3 Chronic kidney disease, stage 3 (moderate); I27.2 Other secondary pulmonary hypertension; B37.2 Candidiasis of skin and nail; M1A.9XX0 Chronic gout, unspecified, without tophus (tophi); N39.46 Mixed incontinence; J30.9 Allergic rhinitis, unspecified; G89.29 Other chronic pain; M54.5 Low back pain; E66.01 Morbid (severe) obesity due to excess calories; Z99.81 Dependence on supplemental oxygen; M19.91 Primary osteoarthritis, unspecified site
CPT/HCPCS: 36415; 36416; 80048; 80053; 80069; 81003; 82607; 82728; 82746; 83540; 83550; 83690; 83735; 84134; 84443; 85007; 85014; 85018; 85025; 85027; 85045; 85049; 85610; 86850; 86900; 86901; 86920; 86922; 87070; 87205; 87486; 87581; 87633; 87798; 88305; 94640; 96360; 99218

== ENCOUNTER 2016-08-23 12:11 | Observation (INO) ==
--- NOTE | 2016-08-23 12:48 | Emergency Department Report ---
General Adult HPI - General Stated complaint: weakness Time Seen by Provider: 08/23/16 12:46 Source: patient, EMS Mode of arrival: EMS Limitations: no limitations - History of Present Illness HPI narrative: 81 YO F brought to ED via EMS with report of generalized weakness and having bilateral leg swelling for the last 3 days. Patient has been unable to get out of her recliner for 3 days. Patient had friend try to help her up but patient weight prevented friend from lifting her to standing. Patient says today EMS was able to lift her today to standing and she was able to walk several steps today before getting onto [facility]. Patient says she has been having a friend bring her food and fluids. Has been urinating in the recliner. I asked patient why she did not call EMS sooner to help her out of her recliner. Patient said " I did not want to come to the hospital". Patient denies fever, chills, new or increasing SOA, CP, nausea, vomiting, abdominal pain. Patient had a GI bleed in May of this year and says she feels the same way as she did when she was anemic from GI bleed. Denies any bloody, black/tarry stools. Patient reports a 30 lb weight gain since hospitalization in May. Patient is chronically on 3L/NC of O2. Has not had any need for increase with recent peripheral edema. Onset (ago): day(s) (3) - Related Data Home Medications Medication Instructions Recorded Confirmed Allopurinol 100 mg PO DAILY #0 02/17/16 09/02/16 Chlorpheniramine Maleate 4 mg PO Q4H PRN #0 02/17/16 09/02/16 [Chlor-Trimeton] Cyanocobalamin (Vitamin B-12) 2,000 mcg PO DAILY 08/23/16 09/02/16 [Vitamin B-12] Folic Acid [Folate] 1 tab PO DAILY 08/23/16 09/02/16 Polyethylene Glycol 3350 [Miralax] 17 gm PO DAILY 08/23/16 09/02/16 Bisoprolol [Zebeta] 2.5 mg PO DAILY 09/02/16 09/02/16 Calmoseptine Packet [Calmoseptine] 1 applic TP PRN 09/02/16 09/02/16 Tramadol [Ultram] 50 mg PO Q6HR PRN 09/02/16 09/02/16 Previous Rx's Medication Instructions Recorded Docusate Sodium [Colace] 100 mg PO BID #60 cap 06/09/16 Pantoprazole Sodium 40 mg PO ACBID #60 tab 06/09/16 Bumetanide Tab [Bumex] 1 mg PO AM #30 tablet 08/25/16 Nystatin Powder [Mycostatin] 1 applic TP TID bottle 08/25/16 Allergies Allergy/AdvReac Type Severity Reaction Status Date / Time neomycin Allergy Intermediate RASH Verified 09/02/16 11:19 amino acids Allergy Unknown Verified 09/02/16 11:19 chromium Allergy Unknown Verified 09/02/16 11:19 ergot alkaloids Allergy Unknown Verified 09/02/16 11:19 acetaminophen AdvReac Unknown NAUSEA Verified 09/02/16 11:19 hydrocodone AdvReac Unknown NAUSEA Verified 09/02/16 11:19 meperidine AdvReac Unknown "CRAZY" Verified 09/02/16 11:19 morphine AdvReac Unknown "CRAZY" Verified 09/02/16 11:19 Review of Systems All systems: reviewed and negative except as stated Constitutional: Reports: weakness (generalized) Cardiovascular: Reports: as per HPI, orthopnea (chronic), edema (bilateral legs) PFSH Patient Stated Medical History Other HEENT Yes: severe nose bleeds Cardiac Arrhythmia Yes: a-fib Congestive Heart Failure Yes Hypertension Yes: not on meds anymore Gastrointestinal Bleeding Yes Surgical History: Bilateral Knee replacement. Right shoulder replacement. EGD. Colonoscopy Family History: Diabetes Cancer HTN - Social History Household members: none Physical Exam - Limitations Limitations: no limitations - General General appearance: alert, in no apparent distress - Normal Exams: Head:: Normocephalic without trauma Eyes:: Pupils are PERRLA w/ EOMI ENMT:: No facial trauma Neck:: Full range of motion, without adenopathy Chest/Respirations:: Clear all keane, with good airflow, and symmetry bilaterally Cardiovascular:: Regular rate and rhythm, Pulses 2+ all extremities Abdomen:: Bowel sounds positive, soft, non-tender, non-distended Musculoskeletal:: No tenderness, or deformity noted Neurological:: Patient is alert, and oriented, cranial nerves Psychiatric:: Patient exhibits, appropriate attention - Other Other exam information: Bilateral 3+ edema lower extremities. Erythematus papules on bilateral lower legs. Course - Reevaluation(s) Reevaluation #1: Patient has mild decrease of edema in bilateral lower legs after 40mg IV of lasix. Patient is requesting admission to the hospital or to go to a half-way for care. - Consultations Consultation #1: I discussed patient's HPI, PMH, labs, VS, exam findings with Dr. Sr. I discussed that patient does not feel she can take care of herself and is wanting to be place in half-way. Dr. Sr will admit patient. Vital Signs Temperature 97.6 F 08/23/16 12:39 Pulse Rate 92 08/23/16 12:39 Respiratory Rate 20 08/23/16 12:39 Blood Pressure 127/64 08/23/16 12:39 Pulse Oximetry 94 08/23/16 12:39 Temperature 97.3 F 08/25/16 07:38 Pulse Rate 91 08/25/16 07:38 Respiratory Rate 20 08/25/16 07:38 Blood Pressure 132/76 08/25/16 07:38 Pulse Oximetry 93 08/25/16 07:38 Medical Decision Making - [facility] Narrative Medical decision making narrative: Patient has generalized weakness, increased peripheral edema with 30lb weight gain and elevated BNP (since May) so patient admitted observation status. - Differential Diagnosis Self care deficit, CHF, Morbid Obesity, Generalized weakness, Edema - Medical Records Medical records reviewed: Yes: I reviewed the patient's medical records. - Lab Data Lab results reviewed: Yes: I reviewed the patient's lab results. Lab results narrative: Labs noncontributory except for ProBNP 5020. Result diagrams: 08/25/16 05:09 08/25/16 05:09 Lab Results 08/23/16 08/23/16 08/23/16 Range/Units 13:35 13:36 15:02 WBC 5.7 (4.5-11.0) T/MM3 RBC 3.57 L (4.00-5.20) M/MM3 Hgb 10.1 L (12-16) GM/DL Hct 34.1 L (36-46) % MCV 95.5 (80-100) UM3 MCH 28.3 (26-34) UUG MCHC 29.6 L (31-37) GM/DL RDW Std Deviation 63.5 H (36.9-50.2) FL Plt Count 183 (130-400) T/MM3 MPV 10.6 (9.4-12.4) UM3 Immature Gran % (Auto) 0.2 (0.0-0.5) % Neut % (Auto) 74.5 H (33-66) % Lymph % (Auto) 12.4 L (23-45) % Dare % (Auto) 9.8 H (0-9.0) % Eos % (Auto) 2.6 (0-4) % Baso % (Auto) 0.5 (0-2) % Neut # 4.3 (1.8-7.7) T/MM3 Lymph # 0.7 L (1-4.8) T/MM3 Dare # 0.6 (0-0.8) T/MM3 Eos # 0.2 (0-0.5) T/MM3 Baso # 0.0 (0-0.2) T/MM3 Abs Immat Gran (auto) 0.01 (0.00-0.03) T/MM3 Turbidity < 20 (0-20) Sodium 144 (134-144) MEQ/L Potassium 4.1 (3.6-5) MEQ/L Chloride 97 L (98-107) MEQ/L Carbon Dioxide 34 H (22-30) MEQ/L Anion Gap 13 (5-15) MEQ/L BUN 29.0 H (7-17) MG/DL Creatinine 1.1 (0.7-1.2) MG/DL GFR Calculation 48 BUN/Creatinine Ratio 26 (6-26) RATIO Glucose 107 (65-110) MG/DL Calculated Osmolality 283 H (261-280) MOSM/KG Calcium 9.7 (8.4-10.2) MG/DL Total Bilirubin 1.00 (0.20-1.30) MG/DL Icterus Index < 2 (0-7) AST 26 (14-36) U/L ALT 30 (9-52) U/L Alkaline Phosphatase 63 (38-126) U/L Creatine Kinase 48 (30-135) U/L Troponin I < 0.012 (0-0.12) ng/ml B-Natriuretic Peptide 5020 H (0-175) pg/mL Total Protein 7.6 (6.3-8.2) G/DL Albumin 4.2 (3.5-5.0) G/DL Globulin 3.4 (2.4-3.6) G/DL Albumin/Globulin Ratio 1.2 (1.1-2.2) RATIO Specimen Hemolysis 20 (0-25) Ur Collection Type Urine, catheter Urine Color Yellow (YELLOW) Urine Clarity Sl cloudy Urine pH 5.0 (5.0-8.0) Ur Specific Tribune 1.020 (1.015-1.025) Urine Protein Negative (NEGATIVE) Urine Glucose (UA) Negative (NEGATIVE) Urine Ketones Negative (NEGATIVE) Urine Occult Blood Trace-intact (NEGATIVE) Urine Nitrate Negative (NEGATIVE) Urine Bilirubin Negative (NEGATIVE) Urine Urobilinogen 0.2 (NORMAL) EU/DL Ur Leukocyte Esterase Trace A (NEGATIVE) Urinalysis Comment Microscopic not ind. Disposition Clinical Impression: Generalized Weakness, Edema, peripheral Disposition: 02 To [facility] Condition: Stable - Seen By: midlevel
[2016-08-23] MEDS: SALINE FLUSH 10ml SYRINGE IVF PRN ×2 (14:19→14:36)
[2016-08-23] MEDS ORDERED: FUROSEMIDE 40 MG/4 ML INJECTION IVP ONE (14:20)
[2016-08-23] MEDS: NS 500 ML IV SCH ×3 (15:50→17:48)
--- NOTE | 2016-08-23 16:58 | History & Physical Report ---
<Alejandra Varela V - Last Filed: 08/23/16 16:52> History of Present Illness Date: 08/23/16 Chief complaint: weakness, lower ext swelling HPI: Julia is a 81-year-old female who is well known to the hospitalist services. She was last admitted in May for a GI bleed. At time of that discharge, she went to [facility] for approximately 1 month of skilled rehabilitation. On approximately July 06 she was discharged home where she has resided independently. She notes that at that time she weighed 246 pounds today she is 276lbs. For the past 3 days she has been sitting in a recliner in his unable to get up. Her neighbor has been bringing her food and due to this extreme weakness. She has been eliminating on herself and voiding in the chair. He recognizes that she is unable to care for herself at home, however, she does attribute some of this to her increased peripheral edema. She does report that she is supposed to be using KALLIE hose, however, has not been able to utilize them for many weeks. Current home Lasix dose is 20 milligrams daily. She would like to go to [facility] for ongoing skilled care. Evaluation in the emergency room included laboratory studies. WBC count 5.7, hemoglobin 10.1, hematocrit 34.1, platelet count 183. Sodium and 44, potassium 4.1, BUN 29, creatinine 1.1. Troponin was negative, proBNP 5020. Urinalysis was unremarkable. She is on her baseline oxygen of 3 liters. She was given Lasix 40 milligrams IV in the emergency room. Given her inability to care for herself at home as well . Increased peripheral edema. He accompanied with 30 pound weight gain since July 06. The hospitalist services were contacted and accepted patient for outpatient admission for further evaluation and treatment. We did discuss advanced or doesn't. She does verify that she would like to be a full code in an acute event. Review of Systems All systems: reviewed and no additional remarkable complaints except as stated - Constitutional Constitutional: Present: fatigue - Cardiovascular Vascular: Present: pedal edema PFSH Hypertension Chronic kidney disease Chronic oxygen dependence History pulmonary hypertension chronic back pain Gout. Osteoarthritis Depression history of scarlet fever History of GI bleed morbid obesity Surgical History: Echo 07/2015: EF 70%, Grade II Diastolic Dysfunction, Severely dilated left. atrium, mild-moderate MR, mild MS, moderate TR, moderate PH. B/ L knee replacements 1993. Rt shoulder replacement. Nasal endoscopy Jan 2016. Colonoscopy. Lt foot sx. 05/31/2016: EGD. 06/02/2016: Transfusion of 3 units of packed red cells. 06/04/2016: Colonoscopy with polypectomy x2. 06/06: Midline insertion. 06/08/2016: Transfusion of 1 unit packed red cells. Family History: Positive for diabetes, hypertension and cancer - Social History Smoking status: Never smoker Substance use type: does not use Current residence: Apartment/Private Home Social history: Primary care provider, Dr. 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 [facility] [place]- Dr Alexis Medications Home Medications Medication Instructions Recorded Confirmed Type Allopurinol 100 mg PO DAILY #0 02/17/16 08/23/16 History Chlorpheniramine Maleate 4 mg PO Q4H PRN #0 02/17/16 08/23/16 History [Chlor-Trimeton] Fexofenadine HCl 180 mg PO DAILY #0 02/17/16 08/23/16 History Acetaminophen [Tylenol] 650 mg PO QID/PRN #0 05/31/16 08/23/16 History Bisoprolol Fumarate 2.5 mg PO DAILY 08/23/16 08/23/16 History Cholecalciferol (Vitamin D3) 1 cap PO DAILY 08/23/16 08/23/16 History [Vitamin D3] Cyanocobalamin (Vitamin B-12) 2,000 mcg PO DAILY 08/23/16 08/23/16 History [Vitamin B-12] Ergocalciferol (Vit. D2) [Vitamin 1 units PO WEEKLY 08/23/16 08/23/16 History D-2] Folic Acid [Folate] 1 tab PO DAILY 08/23/16 08/23/16 History Furosemide [Lasix] 1 tab PO DAILY 08/23/16 08/23/16 History Polyethylene Glycol 3350 [Miralax] 17 gm PO DAILY 08/23/16 08/23/16 History Allergies Allergy/AdvReac Type Severity Reaction Status Date / Time neomycin Allergy Intermediate RASH Verified 08/23/16 14:32 amino acids Allergy Unknown Verified 08/23/16 14:32 chromium Allergy Unknown Verified 08/23/16 14:32 ergot alkaloids Allergy Unknown Verified 08/23/16 14:32 acetaminophen AdvReac Unknown NAUSEA Verified 08/23/16 14:32 hydrocodone AdvReac Unknown NAUSEA Verified 08/23/16 14:32 meperidine AdvReac Unknown "CRAZY" Verified 08/23/16 14:32 morphine AdvReac Unknown "CRAZY" Verified 08/23/16 14:32 Exam Vital Signs: Temp Pulse Resp BP Pulse Ox 97.6 F 83 22 133/69 96 08/23/16 12:39 08/23/16 16:03 08/23/16 16:03 08/23/16 16:03 08/23/16 16:03 Height: 1.65 m Weight: 125.8 kg - Constitutional Present: no acute distress, obese - Routine HEENT Exam Head: Present: normocephalic Eye: Present: EOMI, PERRL ENT: Present: mucous membranes moist - Routine Neck Exam Present: supple - Routine Respiratory Exam Present: CTA bilaterally - Routine Cardiovascular Exam Present: RRR, S1, S2, no murmur - Routine Abdominal Exam Present: soft, normoactive bowel sounds - Routine Back/Spine/Pelvis Exam Back/Spine: Present: full ROM - Routine Skin Exam Present: intact, warm Comments: 2+ bilateral lower ext edema to knees - Routine Neurological Exam Present: alert, oriented X3, CN II-XII intact, moving all extremities - Routine Psychiatric Exam Present: normal affect, normal thought process Results - Labs CBC & Chem 7: 08/23/16 13:35 08/23/16 13:36 Assessment and Plan (1) Weakness Current visit: Yes Status: Acute (2) Peripheral edema Current visit: Yes Status: Acute (3) Weight gain Current visit: Yes Status: Acute 30 lb weight gain since july 06 (4) HTN (hypertension) Current visit: Yes Status: Chronic (5) Pulmonary hypertension Current visit: Yes Status: Chronic (6) Chronic kidney disease Current visit: Yes Status: Chronic (7) Back pain Current visit: Yes Status: Chronic (8) Depression Current visit: Yes Status: Chronic (9) Gout Current visit: Yes Status: Chronic (10) Morbid obesity Current visit: Yes Status: Acute (11) H/O scarlet fever Current visit: Yes Status: Resolved (12) Supplemental oxygen dependent Current visit: Yes Status: Chronic chronically on 3 liters DVT Prophylaxis: SCD's Assessment and Plan: Admit patient to observation to weakness, peripheral edema, weight gain and self -care deficit. Patient routinely takes Lasix 20 milligrams daily at home, however, it she did not take this morning's dose. She was given 40 milligrams of IV Lasix in the emergency room. Will need to continue with ongoing diuresis and likely potassium supplementation. will discuss with attending. Will order for lower ext wraps to aid in peripheral edema daily weights Oxygen at 3 liters which is her chronic baseline Recheck BMP tomorrow morning to follow electro-lites and renal function PT/OT consultations for evaluation of needs Did already speak with TOMÁS Alanis regarding self care deficits and likelihood of need for further skilled rehabilitation at time of discharge. Will discuss further orders and plan with attending Dr Sr Hospital Course Summary Disclaimer: The visit summary below is not to be considered part of the above Progress Note. Hospital Course: 08/23/16 17:14 Admit patient to observation to weakness, peripheral edema, weight gain and self -care deficit. Patient routinely takes Lasix 20 milligrams daily at home, however, it she did not take this morning's dose. She was given 40 milligrams of IV Lasix in the emergency room. Will need to continue with ongoing diuresis and likely potassium supplementation. will discuss with attending. Will order for lower ext wraps to aid in peripheral edema daily weights Oxygen at 3 liters which is her chronic baseline Recheck BMP tomorrow morning to follow electro-lites and renal function PT/OT consultations for evaluation of needs Did already speak with TOMÁS Alanis regarding self care deficits and likelihood of need for further skilled rehabilitation at time of discharge. Will discuss further orders and plan with attending Dr Sr <Mariah Sr - Last Filed: 08/23/16 18:56> History of Present Illness Date: 08/23/16 [facility] Patient Stated Medical History Cataracts Yes: REMOVED IN 2014 AND 2015 Hearing Loss Yes Other HEENT No: severe nose bleeds Cardiac Arrhythmia Yes: a-fib Hypertension Yes: not on meds anymore Other Respiratory Yes: WEARS O2 BECAUSE OF "THE PULMONARY HTN" Gastrointestinal Bleeding Yes Exam Vital Signs: Temperature 97.2 F 08/23/16 17:08 Pulse Rate 85 08/23/16 17:08 Respiratory Rate 18 08/23/16 17:08 Blood Pressure 132/69 08/23/16 17:08 Pulse Oximetry 98 08/23/16 17:08 Oxygen Delivery Method Nasal Cannula Height: 1.65 m Weight: 123.2 kg Results - Labs CBC & Chem 7: 08/23/16 13:35 08/23/16 13:36 Assessment and Plan (1) Weakness Current visit: Yes Status: Acute (2) Peripheral edema Current visit: Yes Status: Acute (3) Weight gain Current visit: Yes Status: Acute (4) HTN (hypertension) Current visit: Yes Status: Chronic (5) Pulmonary hypertension Current visit: Yes Status: Chronic (6) Chronic kidney disease Current visit: Yes Status: Chronic (7) Back pain Current visit: Yes Status: Chronic (8) Depression Current visit: Yes Status: Chronic (9) Gout Current visit: Yes Status: Chronic (10) Morbid obesity Current visit: Yes Status: Acute (11) H/O scarlet fever Current visit: Yes Status: Resolved (12) Supplemental oxygen dependent Current visit: Yes Status: Chronic (13) Diastolic CHF, acute on chronic Current visit: Yes Status: Acute Assessment and Plan: I have independently evaluated and examined this patient. 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 We discussed and formulated the assessment and plan as above with additions as below: Mrs. Holt is known from admission earlier this year. She presents after she was unable to get up out of a chair for the past 3 days roughly which she now attributes to fluid retention and heavy legs after learning that her weight is up 30 pounds in the past 6 weeks. She has noted that her legs were more swollen something that began occurring shortly after discharge from [facility] in June. She was unaware of the weight gain however until advised of current weight. Fluid retention appeared to escalate in the past week in particular corresponding to the time she had most difficulty ambulating and more recently inability to stand up independently. She denies chest pain or worsening dyspnea- she has chronic exertional dyspnea. She's had no cough or sputum production. She complains of postnasal drip. She's been taking 20 mg of Lasix daily although was briefly on 60 mg within the past month. Echocardiogram was updated today at which time ejection fraction was 84%, LVH described, mild-moderate MR and severe TR with severe pulmonary artery hypertension and PA pressure of 77. On examination the patient is alert and cooperative. She is often tangential in providing history. Respirations are nonlabored and breath sounds clear anteriorly/posteriorly. Occasional ectopic beats are noted but underlying cardiac rhythm is regular and there is a soft systolic murmur present. Neck veins are distended to the angle of the jaw. There is no edema palpable in the low low back or in the dependent portion of the thighs but +2 pitting edema is present below the knees. Bilateral lower extremity erythema distally consistent with stasis dermatitis. Small superficial ulcerations noted on both lower extremities near the ankles Continue diuresis-1 mg of Bumex to be given now in addition to prior dose of Lasix. Chest x-ray (portable) to be obtained to look for evidence of pleural effusions. Exam consistent with right-sided heart failure due to pulmonary hypertension/TR. Clearly would benefit from more aggressive diuresis if renal function tolerates. Reviewing outpatient notes there has been concern about sleep apnea and significant nocturnal hypoxia was demonstrated on nocturnal oximetry in the past. We will repeat nocturnal oximetry on 3 L supplemental oxygen to determine if current therapy is adequately managing nocturnal hypoxia or whether additional interventions will be needed. It's noted that bicarbonate has been climbing slowly over the past 3 months suggestive of increasing hypercarbia- blood gas to be screened in the morning. Discussed with ER provider, outpatient and old hospital records reviewed, laboratory data reviewed, x-ray ordered, discussed with nursing. Hospital Course Summary Disclaimer: The visit summary below is not to be considered part of the above Progress Note.
[2016-08-23 17:13] VITALS: BMI 45.1
[2016-08-23] MEDS ORDERED: CALMOSEPTINE OINTMENT 3.5gm PACKET TP PRN (17:46)
[2016-08-23] MEDS ORDERED: TRAMADOL 50 MG TABLET PO PRN (18:36)
[2016-08-23] MEDS: CALMOSEPTINE OINTMENT 3.5gm PACKET TP SCH ×2 (20:42→23:34)
[2016-08-23] MEDS: DOCUSATE SODIUM 100 MG CAPSULE PO SCH (20:43)
[2016-08-24] MEDS: PANTOPRAZOLE 40 MG TABLET PO SCH (06:28)
--- NOTE | 2016-08-24 08:17 | XRay Report ---
Indication: CHF PROCEDURE: XR chest 1V: Encounter: Initial Comparison: June 07, 2016 Findings: New increased airspace and interstitial markings bilaterally with multiple Melissa B lines present peripherally in the left lung. Trace effusions. No pneumothorax. Heart size and mediastinal contours are stable. Impression: Moderate pulmonary edema, likely due to CHF. .
[2016-08-24] MEDS: DOCUSATE SODIUM 100 MG CAPSULE PO SCH ×2 (09:02→20:05)
[2016-08-24] MEDS: CALMOSEPTINE OINTMENT 3.5gm PACKET TP SCH ×2 (09:02→20:06)
[2016-08-24] MEDS: POM ALLOPURINOL 100 MG TABLET PO SCH (09:03)
[2016-08-24] MEDS: POLYETHYL. GLYCOL 3350 BOTTLE 238 GM PO SCH (09:03)
[2016-08-24] MEDS: CYANOCOBALAMIN (B-12) 500mcg TABLET PO SCH (09:03)
[2016-08-24] MEDS: FOLIC ACID 1 MG TABLET PO SCH (09:03)
[2016-08-24] MEDS: SALINE FLUSH 10ml SYRINGE IVF PRN (10:05)
--- NOTE | 2016-08-24 17:22 | Progress Note ---
Subjective: Mrs. Holt reports having variable dyspnea some of which she attributes to anxiety. She has minimal cough. She denied orthopnea and slept well with the head of the bed elevated at approximately 15. She denies PND. She's had no chest pain or palpitations. Edema in her legs has improved significantly overnight and she reports increased urination after receiving diuretics yesterday evening. Her appetite is good and the only pain she is having is some minor discomfort in the small of her back. Short with physical therapy earlier but was reluctant to stand because she didn't think the therapists were strong enough to help support her. She remains on 3 L supplemental oxygen as per home regimen. Objective Vital signs: Temperature 96.2 F L 08/24/16 15:23 Pulse Rate 82 08/24/16 15:23 Respiratory Rate 18 08/24/16 15:23 Blood Pressure 112/66 08/24/16 15:23 Pulse Oximetry 94 08/24/16 15:23 Oxygen Delivery Method Nasal Cannula Oxygen Flow Rate 3 EXAM General-NAD, alert, talkative and often tangential HEENT-conjugate gaze, sclera anicteric, conjunctiva clear Lungs-respirations nonlabored with good airflow, breath sounds clear anteriorly/ posteriorly Cardiac-regular rhythm, S1-S2, soft systolic murmur left lower sternal border Abd-obese, soft, nontender, bowel sounds present although diminished Ext-stasis changes present distal calves, marked improvement in bilateral lower extremity edema-no pitting present today Neuro-moves extremities symmetrically and functionally Psych-minor anxiety but cooperative - Weight: 123.9 kg Results - Labs CBC & Chem 7: 08/23/16 13:35 08/24/16 04:44 Labs: Magnesium 2.2 AM blood gas on 3 L per nasal cannula: 7.47/56/84/41 97% saturated - ABG Interpretation ABG results: 08/24/16 04:30 ABG pH 7.470 H ABG pCO2 56 H ABG pO2 84 ABG HCO3 41 H ABG Total CO2 42.5 H ABG O2 Saturation 97.0 ABG Base Excess 14.7 H - Imaging and Cardiology Chest x-ray Status: image reviewed by me (mild cardiomegaly, increased vascular markings consistent with CHF, Melissa B-lines present-cardiology read as pulmonary edema although probably an over read by my estimation) Assessment and Plan (1) Diastolic CHF, acute on chronic Current visit: Yes Status: Acute (2) Weakness Current visit: Yes Status: Acute (3) Peripheral edema Current visit: Yes Status: Acute (4) Weight gain Current visit: Yes Status: Acute 30 lb weight gain since july 06 (5) HTN (hypertension) Current visit: Yes Status: Chronic (6) Pulmonary hypertension Current visit: Yes Status: Chronic (7) Chronic kidney disease Current visit: Yes Status: Chronic (8) Back pain Current visit: Yes Status: Chronic (9) Depression Current visit: Yes Status: Chronic (10) Gout Current visit: Yes Status: Chronic (11) Morbid obesity Current visit: Yes Status: Acute (12) Supplemental oxygen dependent Current visit: Yes Status: Chronic chronically on 3 liters (13) Tricuspid regurgitation Current visit: Yes Status: Chronic Assessment and Plan: Patient incontinent of urine-urine output unclear. Weight today indicates slight increase rather than net fluid loss although exam suggests significant improvement in edema. Suspect one of the 2 weights is incorrect. Oxygenation remained stable but chest x-ray consistent with failure. Continue diuresis, reassess electrolytes/BNP in a.m. Encouraged patient to work with physical therapy as weakness and inability to out of chair prompted initial evaluation. Patient safety at risk, unable to return home independently at this time. Blood pressure stable. Blood gas with moderate CO2 retention-compensated and consistent with obesity hypoventilation syndrome. Overnight oximetry without hypoxia and on 3 L supplemental oxygen patient desaturated below 89% less than 2 minutes total. Renal function/GFR stable-stage III renal failure. Monitor with diuresis. Sepsis Assessment - Evaluation Sepsis screening result: No Definite Risk Hospital Course Summary Disclaimer: The visit summary below is not to be considered part of the above Progress Note. Hospital Course: 08/23/16 17:14 Admit patient to observation to weakness, peripheral edema, weight gain and self -care deficit. Patient routinely takes Lasix 20 milligrams daily at home, however, it she did not take this morning's dose. She was given 40 milligrams of IV Lasix in the emergency room. Will need to continue with ongoing diuresis and likely potassium supplementation. will discuss with attending. Will order for lower ext wraps to aid in peripheral edema daily weights Oxygen at 3 liters which is her chronic baseline Recheck BMP tomorrow morning to follow electro-lites and renal function PT/OT consultations for evaluation of needs Did already speak with TOMÁS Alanis regarding self care deficits and likelihood of need for further skilled rehabilitation at time of discharge. 08/24/16 17:37 Patient incontinent of urine-urine output unclear. Weight today indicates slight increase rather than net fluid loss although exam suggests significant improvement in edema. Suspect one of the 2 weights is incorrect. Oxygenation remained stable but chest x-ray consistent with failure. Continue diuresis, reassess electrolytes/BNP in a.m. Encouraged patient to work with physical therapy as weakness and inability to out of chair prompted initial evaluation. Patient safety at risk, unable to return home independently at this time. Blood pressure stable. Blood gas with moderate CO2 retention-compensated and consistent with obesity hypoventilation syndrome. Overnight oximetry without hypoxia and on 3 L supplemental oxygen patient desaturated below 89% less than 2 minutes total. Renal function/GFR stable-stage III renal failure. Monitor with diuresis.
[2016-08-24] MEDS: BUMETANIDE 1 MG TABLET PO SCH (20:01)
[2016-08-25 01:08] VITALS: O2SAT 93
[2016-08-25 01:31] VITALS: RESP 20
[2016-08-25] MEDS: PANTOPRAZOLE 40 MG TABLET PO SCH (05:36)
[2016-08-25 07:43] VITALS: BP 132/76; PULSE 91; TEMP 97.3
--- NOTE | 2016-08-25 08:30 | XRay Report ---
Indication: CHF PROCEDURE: XR chest 1V: Encounter: Initial Comparison: August 23, 2016 Findings: Aeration of the lungs has slightly improved with residual bilateral airspace opacities. Linear areas of atelectasis. Small pleural effusions. No pneumothorax. Heart size and mediastinal contours are stable. Impression: Slight improvement in moderate pulmonary edema. .
[2016-08-25] MEDS: BUMETANIDE 1 MG TABLET PO SCH ×2 (08:35→15:23)
[2016-08-25] MEDS: DOCUSATE SODIUM 100 MG CAPSULE PO SCH (08:36)
[2016-08-25] MEDS: CYANOCOBALAMIN (B-12) 500mcg TABLET PO SCH (08:36)
[2016-08-25] MEDS: POLYETHYL. GLYCOL 3350 BOTTLE 238 GM PO SCH (08:36)
[2016-08-25] MEDS: FOLIC ACID 1 MG TABLET PO SCH (08:36)
[2016-08-25] MEDS: POM ALLOPURINOL 100 MG TABLET PO SCH (08:36)
[2016-08-25] MEDS: CALMOSEPTINE OINTMENT 3.5gm PACKET TP SCH (08:36)
--- NOTE | 2016-08-25 15:38 | Extended Care Facility Orders ---
Admission Orders Admit to:: [facility] Allergies/Adverse Reactions: Allergies neomycin Allergy (Intermediate, Verified 08/23/16 14:32) RASH amino acids Allergy (Unknown, Verified 08/23/16 14:32) chromium Allergy (Unknown, Verified 08/23/16 14:32) ergot alkaloids Allergy (Unknown, Verified 08/23/16 14:32) acetaminophen Adverse Reaction (Unknown, Verified 08/23/16 14:32) NAUSEA hydrocodone Adverse Reaction (Unknown, Verified 08/23/16 14:32) NAUSEA meperidine Adverse Reaction (Unknown, Verified 08/23/16 14:32) "CRAZY" morphine Adverse Reaction (Unknown, Verified 08/23/16 14:32) "CRAZY" Admitting Diagnosis: weakness, self care deficit Admitting Physician: Mariah Sr MD Attending Physician: Mariah Sr MD Code Status: full code Anticiapted Length of Stay: greater than 30 days Rehab Potential: good Rehab Prognosis: good Diet: Cardiac Diet [DIET] Sodium Restriction: 2GRAM Fluid Restriction: NOREST Fat Content: LOW Evaluations/Treatment: PT, OT Senior Care Certification: I certify that SNF services are required to be given on an Inpatient basis because of the patients need for residential care on a continuing basis for the condition(s) for which he/she received inpatient hospital services prior to his/her transfer to the SNF. SNF inpatient care is necessary for the following reasons Indication for Senior Care: Other - Additional Information In Event of Arrest: Start CPR,call 911,send patient to the ER Resident is Aware of Diagnosis: Yes Laboratory/Radiology: BMP in 1 week, can be done at Dr. Clark office-dx edema Additional Orders: O2 at 3 L per nasal cannula. Up with assistance only. Monitor weight every other day. Patient to see Dr. Clark in one week. PT/OT
--- NOTE | 2016-08-25 15:42 | Discharge Instructions ---
Discharge Plan - Med Rec/Dispo Referrals/Follow Up: Momo Clark MD [Family Provider] - 1 Week Kash Instructions: Weakness (GEN) Prescriptions: New Calmoseptine Packet [Calmoseptine] 1 applic TP QID PRN packet PRN Reason: Rash Calmoseptine Packet [Calmoseptine] 1 applic TP BID packet Bumetanide Tab [Bumex] 1 mg PO AM #30 tablet Nystatin Powder [Mycostatin] 1 applic TP TID bottle Continue Allopurinol 100 mg PO DAILY #0 Acetaminophen [Tylenol] 650 mg PO QID/PRN #0 Tramadol HCl [Ultram] 50 mg PO Q4H PRN #30 tab PRN Reason: PAIN Ergocalciferol (Vit. D2) [Vitamin D-2] 1 units PO WEEKLY Polyethylene Glycol 3350 [Miralax] 17 gm PO DAILY Folic Acid [Folate] 1 tab PO DAILY Cyanocobalamin (Vitamin B-12) [Vitamin B-12] 2,000 mcg PO DAILY Chlorpheniramine Maleate [Chlor-Trimeton] 4 mg PO Q4H PRN #0 PRN Reason: PRN ORDERS Docusate Sodium [Colace] 100 mg PO BID #60 cap Pantoprazole Sodium 40 mg PO ACBID #60 tab Bisoprolol Fumarate 2.5 mg PO DAILY Discontinued Fexofenadine HCl 180 mg PO DAILY #0 Furosemide [Lasix] 1 tab PO DAILY Cholecalciferol (Vitamin D3) [Vitamin D3] 1 cap PO DAILY Discharge Instructions/Outpatient Orders: Final Provider Discharge Instructions Location: Determined By Patient - Disposition 01 Discharged Home, Self-Care
--- NOTE | 2016-08-25 20:31 | Discharge Summary ---
Discharge Information Date of admission: 08/23/16 16:49 Anticipated date of discharge: 08/25/16 Attending Physician: Mariah Sr MD Primary care physician: Momo Clark MD Consults: - Discharge Diagnosis (1) Diastolic CHF, acute on chronic Status: Acute (2) Weakness Status: Acute (3) Peripheral edema Status: Acute (4) Weight gain Status: Acute (5) HTN (hypertension) Qualifiers: Hypertension type: essential hypertension Qualified Code(s): I10 - Essential (primary) hypertension Status: Chronic (6) Pulmonary hypertension Status: Chronic (7) Chronic respiratory failure with hypoxia and hypercapnia Status: Chronic (8) Chronic kidney disease Qualifiers: Chronic kidney disease stage: stage 3 (moderate) Qualified Code(s): N18.3 - Chronic kidney disease, stage 3 (moderate) Status: Chronic (9) Depression Status: Chronic (10) Morbid obesity Status: Acute (11) Supplemental oxygen dependent Status: Chronic (12) Tricuspid regurgitation Qualifiers: Cardiac valve disease etiology: etiology unspecified Qualified Code(s): 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 - Laboratory Labs: Admission labs on 08/23/16 included white count of 5.7, hemoglobin 10.1, bicarbonate 34, BUN 29, creatinine 1.1, normal liver enzymes, and BNP 5020. BNP at discharge was 5790. Blood gas on 3 L by nasal cannula on the morning of 08/24: 7.47/56/84/41 97% saturated 08/25/16 05:09 08/25/16 05:09 - Radiology Radiology: Chest x-ray on admission demonstrated increased vascular markings and curly B- lines consistent with CHF, trace pleural effusions. Repeat chest x-ray on 08/25 demonstrated partial improvement in lung improvement. History of Present Illness HPI: Julia is a 81-year-old female who is well known to the hospitalist services. She was last admitted in May for a GI bleed. At time of that discharge, she went to [facility] for approximately 1 month of skilled rehabilitation. On approximately July 06 she was discharged home where she has resided independently. She notes that at that time she weighed 246 pounds today she is 276lbs. For the past 3 days she has been sitting in a recliner in his unable to get up. Her neighbor has been bringing her food and due to this extreme weakness. She has been eliminating on herself and voiding in the chair. He recognizes that she is unable to care for herself at home, however, she does attribute some of this to her increased peripheral edema. She does report that she is supposed to be using KALLIE hose, however, has not been able to utilize them for many weeks. Current home Lasix dose is 20 milligrams daily. She would like to go to [facility] for ongoing skilled care. Evaluation in the emergency room included laboratory studies. WBC count 5.7, hemoglobin 10.1, hematocrit 34.1, platelet count 183. Sodium and 44, potassium 4.1, BUN 29, creatinine 1.1. Troponin was negative, proBNP 5020. Urinalysis was unremarkable. She is on her baseline oxygen of 3 liters. She was given Lasix 40 milligrams IV in the emergency room. Given her inability to care for herself at home as well . Increased peripheral edema. He accompanied with 30 pound weight gain since July 06. The hospitalist services were contacted and accepted patient for outpatient admission for further evaluation and treatment. We did discuss advanced or doesn't. She does verify that she would like to be a full code in an acute event. Hospital Course This is a general summary of the patient's hospital course. For more details refer to the complete medical record. Hospital course: Admit patient to observation to weakness, peripheral edema, weight gain and self -care deficit. She was volume overloaded with radiographic findings of heart failure although oxygenation was stable compared to baseline. She was given 40 milligrams of IV Lasix in the emergency room. Diuresis continued with IV Bumex with subsequent conversion to oral Bumex. Lower extremity edema improved quickly with elevation of the patient's legs and initiation of nic wraps to bilateral lower extremities. The patient diuresed 5.8 kg to a discharge weight of 120 kg on 08/25. PT evaluation was completed on 08/24, patient was reluctant to stand or attempt to ambulate due to fear of falling and concern that therapists were not strong enough to hold her up. Therapy recommended discharge to fdc however outpatient status did not permit fdc and she instead discharged to [facility] where she will continue to receive therapy for strengthening. Blood gas was obtained on 08/24 demonstrating hypercarbia consistent with obesity hypoventilation syndrome. Overnight oximetry revealed adequate oxygenation with 3 L supplemental oxygen. Renal function/GFR stable with diuresis as were electrolytes. On the date of discharge the patient reported that she continues to feel short of breath occasionally but she was pleased with improvement in lower extremity edema. Both legs were wrapped with Nic wraps but there was no evidence of edema on palpation. Breath sounds are diminished but no wheezing or rhonchi were present. Patient discharged to [facility] for strengthening on 08/25. She is asked to follow up with Dr. Clark in approximately one week. Discharge Plan - Med Rec/Dispo Referrals/Follow Up: Momo Clark MD [Family Provider] - 1 Week Kash Instructions: Weakness (GEN) Prescriptions: New Calmoseptine Packet [Calmoseptine] 1 applic TP QID PRN packet PRN Reason: Rash Calmoseptine Packet [Calmoseptine] 1 applic TP BID packet Bumetanide Tab [Bumex] 1 mg PO AM #30 tablet Nystatin Powder [Mycostatin] 1 applic TP TID bottle Continue Allopurinol 100 mg PO DAILY #0 Acetaminophen [Tylenol] 650 mg PO QID/PRN #0 Tramadol HCl [Ultram] 50 mg PO Q4H PRN #30 tab PRN Reason: PAIN Ergocalciferol (Vit. D2) [Vitamin D-2] 1 units PO WEEKLY Polyethylene Glycol 3350 [Miralax] 17 gm PO DAILY Folic Acid [Folate] 1 tab PO DAILY Cyanocobalamin (Vitamin B-12) [Vitamin B-12] 2,000 mcg PO DAILY Chlorpheniramine Maleate [Chlor-Trimeton] 4 mg PO Q4H PRN #0 PRN Reason: PRN ORDERS Docusate Sodium [Colace] 100 mg PO BID #60 cap Pantoprazole Sodium 40 mg PO ACBID #60 tab Bisoprolol Fumarate 2.5 mg PO DAILY Discontinued Fexofenadine HCl 180 mg PO DAILY #0 Furosemide [Lasix] 1 tab PO DAILY Cholecalciferol (Vitamin D3) [Vitamin D3] 1 cap PO DAILY Discharge Instructions/Outpatient Orders: Final Provider Discharge Instructions Location: Determined By Patient - Disposition 04 To [facility] Home/Facility
[2016-08-27] MEDS ORDERED: ERGOCALCIFEROL 50,000 UNIT CAPSULE PO SCH (09:00)
== END 2016-08-25 16:50 ==
LOC: ED 12:11 → MED 12:11
PROVIDERS: ADMIT Internal Medicine; ATTEND Internal Medicine

== ENCOUNTER 2016-09-02 10:36 | Inpatient (IN) ==
--- NOTE | 2016-09-02 11:38 | Emergency Department Report ---
SOB HPI - General Chief Complaint: Shortness of Breath/Dyspnea Stated Complaint: Low o2 sats Time Seen by Provider: 09/02/16 11:34 - History of Present Illness 81-year-old female with recent history of pneumonia. She is chronically on oxygen and normally uses 2-3 L/m. She felt like the nasal cannula was not working properly and wanted to see her doctor, who is out of town currently. His office recommended that if she was having trouble she come to the ER. She is here with her service loss control consultant. Getting a history from the patient is somewhat obtuse and difficult, however the service loss control consultant's able to explain much of what has been going on. She has been out of the hospital at least a week after being discharged from [facility]. She is now having some hallucinations and seeing colorful animals. She thinks that her vitamins her medications may be causing it. She was written a prescription for tramadol, but has not yet started it. She doesn't think she's had any fevers despite her worsening shortness of breath. No chest pain. - Related Data Home Medications Medication Instructions Recorded Confirmed Allopurinol 100 mg PO DAILY #0 02/17/16 09/02/16 Chlorpheniramine Maleate 4 mg PO Q4H PRN #0 02/17/16 09/02/16 [Chlor-Trimeton] Cyanocobalamin (Vitamin B-12) 2,000 mcg PO DAILY 08/23/16 09/02/16 [Vitamin B-12] Folic Acid [Folate] 1 tab PO DAILY 08/23/16 09/02/16 Polyethylene Glycol 3350 [Miralax] 17 gm PO DAILY 08/23/16 09/02/16 Bisoprolol [Zebeta] 2.5 mg PO DAILY 09/02/16 09/02/16 Calmoseptine Packet [Calmoseptine] 1 applic TP PRN 09/02/16 09/02/16 Tramadol [Ultram] 50 mg PO Q6HR PRN 09/02/16 09/02/16 Previous Rx's Medication Instructions Recorded Docusate Sodium [Colace] 100 mg PO BID #60 cap 06/09/16 Pantoprazole Sodium 40 mg PO ACBID #60 tab 06/09/16 Bumetanide Tab [Bumex] 1 mg PO AM #30 tablet 06/28/17 Nystatin Powder [Mycostatin] 1 applic TP TID bottle 08/25/16 Allergies Allergy/AdvReac Type Severity Reaction Status Date / Time neomycin Allergy Intermediate RASH Verified 09/02/16 11:19 amino acids Allergy Unknown Verified 09/02/16 11:19 chromium Allergy Unknown Verified 09/02/16 11:19 ergot alkaloids Allergy Unknown Verified 09/02/16 11:19 acetaminophen AdvReac Unknown NAUSEA Verified 09/02/16 11:19 hydrocodone AdvReac Unknown NAUSEA Verified 09/02/16 11:19 meperidine AdvReac Unknown "CRAZY" Verified 09/02/16 11:19 morphine AdvReac Unknown "CRAZY" Verified 09/02/16 11:19 Review of Systems All systems: reviewed and negative except as stated Gastrointestinal: Reports: other (recent GI bleed) [facility] Patient Stated Medical History Cataracts Yes: REMOVED IN 2014 AND 2015 Hearing Loss Yes Other HEENT No: severe nose bleeds Cardiac Arrhythmia Yes: a-fib Congestive Heart Failure Yes Hypertension Yes: not on meds anymore Other Respiratory Yes: 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 atrium, mild-moderate MR, mild MS, moderate TR, moderate PH. B/ L knee replacements 1993. Rt shoulder replacement. Nasal endoscopy Jan 2016. Colonoscopy. Lt foot sx. 05/31/2016: EGD. 06/02/2016: Transfusion of 3 units of packed red cells. 06/04/2016: Colonoscopy with polypectomy x2. 06/06: Midline insertion. 06/08/2016: Transfusion of 1 unit packed red cells. - Social History Smoking status: Never smoker Substance use type: does not use Alcohol intake frequency: does not drink Physical Exam - Limitations Limitations: other (difficult to obtain history) - General General appearance: alert - Normal Exams: Head:: Normocephalic without trauma Abdomen:: Bowel sounds positive, soft, non-tender, non-distended, no hepatosplenomegaly, masses or bruits noted Neurological:: Patient is alert, and oriented, cranial nerves, motor/sensory/ cerebellar, exams w/o gross deficits, to observation Psychiatric:: Patient exhibits, appropriate attention, emotion and affect - Chest Chest inspection: Present: normal inspection - Respiratory Respiratory exam: Present: wheezes, crackles - Cardiovascular Cardiovascular exam: Present: irregular rhythm - Abdominal Exam Abdominal exam: Present: soft, normal bowel sounds. Absent: distention, tenderness, guarding Course Vital Signs Temperature 97.4 F 09/02/16 10:38 Pulse Rate 110 H 09/02/16 10:38 Respiratory Rate 28 H 09/02/16 10:38 Blood Pressure 126/79 09/02/16 10:38 Pulse Oximetry 73 L 09/02/16 10:38 Temperature 97.4 F 09/02/16 10:38 Pulse Rate 99 09/02/16 11:40 Respiratory Rate 28 H 09/02/16 10:38 Blood Pressure 126/79 09/02/16 10:38 Pulse Oximetry 73 L 09/02/16 10:38 Shortness of Breath/Dyspnea - [facility] Narrative Medical decision making narrative: Patient is requiring up to 6 L of oxygen while in the ED. Initially unable to tolerate just a nasal cannula, she was placed on mask. She does have an elevated BNP consistent with a chest x-ray showing pulmonary edema bilateral. White count is normal with minimal left shift. D-dimer is elevated at greater than 1000. Because of an acutely elevated BUN/creatinine, I did not do a CT angiogram to rule out pulmonary embolus. Patient is intravascularly dehydrated while having extravascular fluid overload. I spoke with hospitalist service agreed to accept the patient for treatment. While in the ED, 500 ML of MS was given IV area - Differential Diagnosis Likely: congestive heart failure, community acquired pneumonia, asthma with exacerbation, pulmonary embolism - Lab Data Result diagrams: 09/02/16 10:55 09/02/16 10:55 Lab Results 09/02/16 09/02/16 09/02/16 Range/Units 10:55 10:55 10:55 WBC 7.8 (4.5-11.0) T/MM3 RBC 3.80 L (4.00-5.20) M/MM3 Hgb 10.8 L (12-16) GM/DL Hct 35.4 L (36-46) % MCV 93.2 (80-100) UM3 MCH 28.4 (26-34) UUG MCHC 30.5 L (31-37) GM/DL RDW Std Deviation 61.7 H (36.9-50.2) FL Plt Count 245 D (130-400) T/MM3 MPV 11.0 (9.4-12.4) UM3 Immature Gran % (Auto) 0.4 (0.0-0.5) % Neut % (Auto) 73.1 H (33-66) % Lymph % (Auto) 13.9 L (23-45) % [place] % (Auto) 11.6 H (0-9.0) % Eos % (Auto) 0.5 (0-4) % Baso % (Auto) 0.5 (0-2) % Neut # 5.7 (1.8-7.7) T/MM3 Lymph # 1.1 (1-4.8) T/MM3 [place] # 0.9 H (0-0.8) T/MM3 Eos # 0.0 (0-0.5) T/MM3 Baso # 0.0 (0-0.2) T/MM3 Abs Immat Gran (auto) 0.03 (0.00-0.03) T/MM3 D-Dimer 1020 H (0-230) NG/ML Turbidity < 20 (0-20) Sodium 140 (134-144) MEQ/L Potassium 4.3 (3.6-5) MEQ/L Chloride 94 L (98-107) MEQ/L Carbon Dioxide 32 H (22-30) MEQ/L Anion Gap 14 (5-15) MEQ/L BUN 51.0 H* (7-17) MG/DL Creatinine 1.4 H (0.7-1.2) MG/DL GFR Calculation 36 BUN/Creatinine Ratio 36 H (6-26) RATIO Glucose 110 (65-110) MG/DL Calculated Osmolality 284 H (261-280) MOSM/KG Calcium 9.3 (8.4-10.2) MG/DL Total Bilirubin 1.10 (0.20-1.30) MG/DL Icterus Index < 2 (0-7) AST 59 H (14-36) U/L ALT 46 (9-52) U/L Alkaline Phosphatase 73 (38-126) U/L Troponin I 0.023 (0-0.12) ng/ml B-Natriuretic Peptide 47878 H (0-175) pg/mL Total Protein 7.7 (6.3-8.2) G/DL Albumin 4.1 (3.5-5.0) G/DL Globulin 3.6 (2.4-3.6) G/DL Albumin/Globulin Ratio 1.1 (1.1-2.2) RATIO Specimen Hemolysis 35 H (0-25) Ur Collection Type Urine Color (YELLOW) Urine Clarity Urine pH (5.0-8.0) Ur Specific [place] (1.015-1.025) Urine Protein (NEGATIVE) Urine Glucose (UA) (NEGATIVE) Urine Ketones (NEGATIVE) Urine Occult Blood (NEGATIVE) Urine Nitrate (NEGATIVE) Urine Bilirubin (NEGATIVE) Urine Urobilinogen (NORMAL) EU/DL Ur Leukocyte Esterase (NEGATIVE) Urinalysis Comment 09/02/16 Range/Units 12:43 WBC (4.5-11.0) T/MM3 RBC (4.00-5.20) M/MM3 Hgb (12-16) GM/DL Hct (36-46) % MCV (80-100) UM3 MCH (26-34) UUG MCHC (31-37) GM/DL RDW Std Deviation (36.9-50.2) FL Plt Count (130-400) T/MM3 MPV (9.4-12.4) UM3 Immature Gran % (Auto) (0.0-0.5) % Neut % (Auto) (33-66) % Lymph % (Auto) (23-45) % [place] % (Auto) (0-9.0) % Eos % (Auto) (0-4) % Baso % (Auto) (0-2) % Neut # (1.8-7.7) T/MM3 Lymph # (1-4.8) T/MM3 [place] # (0-0.8) T/MM3 Eos # (0-0.5) T/MM3 Baso # (0-0.2) T/MM3 Abs Immat Gran (auto) (0.00-0.03) T/MM3 D-Dimer (0-230) NG/ML Turbidity (0-20) Sodium (134-144) MEQ/L Potassium (3.6-5) MEQ/L Chloride (98-107) MEQ/L Carbon Dioxide (22-30) MEQ/L Anion Gap (5-15) MEQ/L BUN (7-17) MG/DL Creatinine (0.7-1.2) MG/DL GFR Calculation BUN/Creatinine Ratio (6-26) RATIO Glucose (65-110) MG/DL Calculated Osmolality (261-280) MOSM/KG Calcium (8.4-10.2) MG/DL Total Bilirubin (0.20-1.30) MG/DL Icterus Index (0-7) AST (14-36) U/L ALT (9-52) U/L Alkaline Phosphatase (38-126) U/L Troponin I (0-0.12) ng/ml B-Natriuretic Peptide (0-175) pg/mL Total Protein (6.3-8.2) G/DL Albumin (3.5-5.0) G/DL Globulin (2.4-3.6) G/DL Albumin/Globulin Ratio (1.1-2.2) RATIO Specimen Hemolysis (0-25) Ur Collection Type Urine, clean catch Urine Color Yellow (YELLOW) Urine Clarity Sl cloudy Urine pH 5.0 (5.0-8.0) Ur Specific [place] >=1.030 H (1.015-1.025) Urine Protein Trace A (NEGATIVE) Urine Glucose (UA) Negative (NEGATIVE) Urine Ketones Negative (NEGATIVE) Urine Occult Blood Trace-lysed (NEGATIVE) Urine Nitrate Negative (NEGATIVE) Urine Bilirubin 1+ A (NEGATIVE) Urine Urobilinogen 1.0 (NORMAL) EU/DL Ur Leukocyte Esterase Negative (NEGATIVE) Urinalysis Comment Microscopic not ind. Disposition Clinical Impression: Congestive heart failure, Dehydration, Renal insufficiency Disposition: [address] [facility] Acute Care Condition: Stable Prescriptions: No Action Allopurinol 100 mg PO DAILY #0 Polyethylene Glycol 3350 [Miralax] 17 gm PO DAILY Folic Acid [Folate] 1 tab PO DAILY Cyanocobalamin (Vitamin B-12) [Vitamin B-12] 2,000 mcg PO DAILY Tramadol [Ultram] 50 mg PO Q6HR PRN PRN Reason: Pain Bisoprolol [Zebeta] 2.5 mg PO DAILY Chlorpheniramine Maleate [Chlor-Trimeton] 4 mg PO Q4H PRN #0 PRN Reason: PRN ORDERS Docusate Sodium [Colace] 100 mg PO BID #60 cap Pantoprazole Sodium 40 mg PO ACBID #60 tab Bumetanide Tab [Bumex] 1 mg PO AM #30 tablet Nystatin Powder [Mycostatin] 1 applic TP TID bottle Calmoseptine Packet [Calmoseptine] 1 applic TP PRN Referrals: Momo Clark MD [Family Provider] - Time of Disposition: 13:59 - Seen By: physician
--- NOTE | 2016-09-02 13:38 | XRay Report ---
INDICATION: dyspnea PROCEDURE: CHEST 2-VIEWS UPRIGHT (PA & LAT) Encounter: Initial COMPARISON: August 25, 2016 FINDINGS: Worsening hypoinflation. Probable trace pleural effusions. Bilateral lower lobe airspace opacities. New linear atelectasis in the left upper lobe. No pneumothorax. Cardiac silhouette remains moderately enlarged. Mediastinal contours are stable. Pulmonary vascularity is mildly prominent. Impression: Continued findings of pulmonary edema. Superimposed pneumonia or aspiration cannot be excluded in the lower lobes. .
[2016-09-02] MEDS: SALINE FLUSH 10ml SYRINGE IVF PRN (15:45)
[2016-09-02 15:54] VITALS: BMI 42.4
--- NOTE | 2016-09-02 17:07 | History & Physical Report ---
<Alejandra Varela V - Last Filed: 09/02/16 16:58> History of Present Illness Date: 09/02/16 Chief complaint: Dyspnea HPI: Julia is a 81 yr old who is well known to the hospitalist services as she was recently admitted on 08/23/16 through 08/25/16 with increased lower extremity edema and weight gain. During her hospitalization she was diuresed approximately 5.8 kilograms at discharge weight was 120kg. She was discharged on 3 liters of oxygen by nasal cannula for chronic respiratory failure with hypoxemia and hypercapnia. It is reported by skilled nursing staff that patient has been requiring 4 liters of oxygen for the past 4-5 days, however. Sats have been in the 80s during this time. Given an increase in oxygen demands today. Patient was sent by EMS to [facility] emergency room for acute evaluation and treatment. The cecum was normal, 7.8, hemoglobin 10.8, hematocrit 35.4, platelet count 245. Sodium is 140, potassium 4.3, CO2 32, BUN is elevated at 51 and creatinine of 1.4.(Creatinine at time of discharge was 1.2). Troponin 0.02. 3. ProBNP is 13,100. This is significantly up from previous. BNP of 5700. Urinalysis shows trace protein, positive bilirubin, otherwise unremarkable. A chest x-ray does reveal continued pulmonary edema. She has been in atrial fibrillation since admission which is not a new finding for her. However, rate has varied from 90 up to 140s. She is to Neck breathing 28-40 times a minute. To maintain adequate saturations. She is requiring 9 liters of oxygen by nonrebreather. Given his acute findings and change in respiratory status. The hospital service will contact accept patient for inpatient admission for further evaluation and treatment Julia is seen on initial examination. She is alert, however, confused regarding the details of her arrival to [facility]. She initially states that she "coded" while in the emergency room and she remembers a surgeon with blood on his scrubs, placing them in a sack. Her DPOA a is at the bedside and he verifies that this is not accurate. Staff report that patient did appear to be confused at times, which may be secondary to her hypoxia. She is somewhat suspicious and has a difficult time understanding why her doctor isn't taking care of her at the hospital. She is able to verify that her breathing seems to be worse over the last several days, however, cannot quantify or give specifics. We did discuss advanced directives and she does verify that she would like intubation and resuscitation, however, declines treatment of an acute stroke. Review of Systems All systems: reviewed and no additional remarkable complaints except as stated Review of systems: It is unclear if review of systems are accurate. Given patient's mental status change/ confusion - Constitutional Constitutional: Present: fatigue - Cardiovascular Cardiovascular: Present: dyspnea on exertion Rhythm: Present: other (irregular rhythm) - Respiratory Respiratory: Present: dyspnea Respiratory Comments: Conversational dyspnea PFSH Patient Stated Medical History Hypertension Chronic atrial fibrillation Chronic kidney disease Chronic oxygen dependence- 3 liters by nasal cannula History pulmonary hypertension chronic back pain Gout Cataracts Osteoarthritis Depression history of scarlet fever History of GI bleed morbid obesity Surgical History: Echo 07/2015: EF 70%, Grade II Diastolic Dysfunction, Severely dilated left. atrium, mild-moderate MR, mild MS, moderate TR, moderate PH. B/ L knee replacements 1993. Rt shoulder replacement. Nasal endoscopy Jan 2016. Colonoscopy. Lt foot sx. 05/31/2016: EGD. 06/02/2016: Transfusion of 3 units of packed red cells. 06/04/2016: Colonoscopy with polypectomy x2. 06/06: Midline insertion. 06/08/2016: Transfusion of 1 unit packed red cells. Family History: Family history positive for diabetes, hypertension and cancer - Social History Smoking status: Never smoker Substance use type: does not use Alcohol intake frequency: does not drink Housing: skilled nursing Current residence: Skilled Nursing Social history: Primary care provider, Dr. Clark Whitewasher Dr. Demarco. Pulmon- Dr Alexis Medications Home Medications Medication Instructions Recorded Confirmed Type Allopurinol 100 mg PO DAILY #0 02/17/16 09/02/16 History Chlorpheniramine Maleate 4 mg PO Q4H PRN #0 02/17/16 09/02/16 History [Chlor-Trimeton] Cyanocobalamin (Vitamin B-12) 2,000 mcg PO DAILY 08/23/16 09/02/16 History [Vitamin B-12] Folic Acid [Folate] 1 tab PO DAILY 08/23/16 09/02/16 History Polyethylene Glycol 3350 [Miralax] 17 gm PO DAILY 08/23/16 09/02/16 History Bisoprolol [Zebeta] 2.5 mg PO DAILY 09/02/16 09/02/16 History Calmoseptine Packet [Calmoseptine] 1 applic TP PRN 09/02/16 09/02/16 History Tramadol [Ultram] 50 mg PO Q6HR PRN 09/02/16 09/02/16 History Allergies Allergy/AdvReac Type Severity Reaction Status Date / Time neomycin Allergy Intermediate RASH Verified 09/02/16 16:13 amino acids Allergy Unknown Verified 09/02/16 16:13 chromium Allergy Unknown Verified 09/02/16 16:13 ergot alkaloids Allergy Unknown Verified 09/02/16 16:13 acetaminophen AdvReac Unknown NAUSEA Verified 09/02/16 16:13 hydrocodone AdvReac Unknown NAUSEA Verified 09/02/16 16:13 meperidine AdvReac Unknown "CRAZY" Verified 09/02/16 16:13 morphine AdvReac Unknown "CRAZY" Verified 09/02/16 16:13 Exam Vital Signs: Temperature 97.4 F 09/02/16 10:38 Pulse Rate 132 H 09/02/16 15:05 Respiratory Rate 24 09/02/16 15:05 Blood Pressure 176/97 H 09/02/16 15:05 Pulse Oximetry 95 09/02/16 15:05 Oxygen Delivery Method Non-Rebreather Oxygen Flow Rate 10 Telemetry Rhythm: A-fib Height: 1.65 m Weight: 115.7 kg Body Mass Index: 42.4 - Constitutional Present: moderate distress - Routine HEENT Exam Head: Present: normocephalic Eye: Present: EOMI, PERRL ENT: Present: mucous membranes moist - Routine Neck Exam Present: supple, full ROM - Routine Respiratory Exam Present: accessory muscle use, dyspnea, diminished air movement (bilateral bases ) Comments: Conversational dyspnea. Able to speak 3-4 words at a time - Routine Cardiovascular Exam Present: irregular rhythm (atrial fibrillation) - Routine Abdominal Exam Present: soft, normoactive bowel sounds, non distended, non tender - Routine Extremities Exam Present: no edema, full ROM - Routine Back/Spine/Pelvis Exam Back/Spine: Present: full ROM - Routine Skin Exam Present: intact, dry, warm - Routine Neurological Exam Present: alert, CN II-XII intact, altered mental status, moving all extremities , normal speech. Absent: sensory deficit, motor deficit - Routine Psychiatric Exam Present: anxious, paranoid Results - Labs CBC & Chem 7: 09/02/16 10:55 09/02/16 10:55 Assessment and Plan (1) Acute respiratory failure with hypoxia Current visit: Yes Status: Acute (2) Elevated d-dimer Current visit: Yes Status: Acute (3) Elevated brain natriuretic peptide (BNP) level Current visit: Yes Status: Acute (4) Encephalopathy Current visit: Yes Status: Acute Resuscitation Status: Full Code Assessment and Plan: 09/02/16- Admission Acute respiratory failure with hypoxia requiring 8-9 liters of oxygen to maintain saturations Encephalopathy- suspect related to hypoxia Elevated e-[id number]-rmhtyto on admission Elevated proBNP- present on admission Hypertension CHF- diastolic Chronic atrial fibrillation Chronic kidney disease Chronic oxygen dependence- 3 liters by nasal cannula at baseline History pulmonary hypertension chronic back pain Gout Cataracts Osteoarthritis Depression history of scarlet fever History of GI bleed morbid obesity Plan Patient to inpatient status under the care of Dr Sr for acute respiratory failure with hypoxia requiring 9 liters of oxygen by nasal cannula, along with acute elevation of proBNP and d-Dimer, present on admission. Consult placed to respiratory therapist for ongoing oxygen evaluation and management. Currently on 8-9 liters at time of examination. Baseline is Renal function is elevated as patient is likely intramuscularly dry however may need diuresising for known diastolic congestive heart failure. Will discuss further with attending. Home Bumex on hold. Obtain ABG at time of admission. Will monitor patient. Cardiac telemetry given her chronic atrial fibrillation. At times she has rapid ventricular rate between 80 and 140. Did review home medications. SCDs/KALLIE hose to bilateral lower extremity for treatment of ongoing edema and DVT prophylaxis. In light of elevated d-dimer, accompanied with increased hypoxia may need to evaluate further to rule out a pulmonary emboli. At this time given elevated renal function will hold off on ordering CT of the chest. May need to obtain VQ scan. Will discuss with attending. Will repeat CBC and BMP tomorrow morning to follow blood counts renal function and electrolytes. Again July does wish to be a full code and this orders written. Will discuss furhter orders and plan of care with attending Dr Sr At time of discharge medical care will return to primary care provider, Dr. Kirill Clark - Time spent with patient 25 - 35 minutes Sepsis Assessment - Evaluation Sepsis screening result: No Definite Risk Hospital Course Summary Disclaimer: The visit summary below is not to be considered part of the above Progress Note. Hospital Course: 09/02/16- Admission Acute respiratory failure with hypoxia requiring 8-9 liters of oxygen to maintain saturations Encephalopathy- suspect related to hypoxia Elevated e-[id number]-ljesimd on admission Elevated proBNP- present on admission Hypertension CHF- diastolic Chronic atrial fibrillation Chronic kidney disease Chronic oxygen dependence- 3 liters by nasal cannula at baseline History pulmonary hypertension chronic back pain Gout Cataracts Osteoarthritis Depression history of scarlet fever History of GI bleed morbid obesity Plan Patient to inpatient status under the care of Dr Sr for acute respiratory failure with hypoxia requiring 9 liters of oxygen by nasal cannula, along with acute elevation of proBNP and d-Dimer, present on admission. Consult placed to respiratory therapist for ongoing oxygen evaluation and management. Currently on 8-9 liters at time of examination. Baseline is Renal function is elevated as patient is likely intramuscularly dry however may need diuresising for known diastolic congestive heart failure. Will discuss further with attending. Home Bumex on hold. Obtain ABG at time of admission. Will monitor patient. Cardiac telemetry given her chronic atrial fibrillation. At times she has rapid ventricular rate between 80 and 140. Did review home medications. SCDs/KALLIE hose to bilateral lower extremity for treatment of ongoing edema and DVT prophylaxis. In light of elevated d-dimer, accompanied with increased hypoxia may need to evaluate further to rule out a pulmonary emboli. At this time given elevated renal function will hold off on ordering CT of the chest. May need to obtain VQ scan. Will discuss with attending. Will repeat CBC and BMP tomorrow morning to follow blood counts renal function and electrolytes. Again July does wish to be a full code and this orders written. Will discuss [facility] orders and plan of care with attending Dr Sr At time of discharge medical care will return to primary care provider, Dr. Kirill Clark <Mariah Sr - Last Filed: 09/02/16 20:28> History of Present Illness Date: 09/02/16 [facility] Patient Stated Medical History Cataracts Yes: REMOVED IN 2014 AND 2015 Hearing Loss Yes Other HEENT No: severe nose bleeds Cardiac Arrhythmia Yes: a-fib Congestive Heart Failure Yes Hypertension Yes: not on meds anymore Other Respiratory Yes: WEARS O2 BECAUSE OF "THE PULMONARY HTN" Gastrointestinal Bleeding Yes Exam Vital Signs: Temperature 95.6 F L 09/02/16 18:48 Pulse Rate 98 09/02/16 18:48 Respiratory Rate 28 H 09/02/16 18:48 Blood Pressure 135/74 09/02/16 18:48 Pulse Oximetry 92 09/02/16 19:06 Oxygen Delivery Method Simple Mask Oxygen Flow Rate 8 Height: 1.65 m Weight: 115.7 kg Results - Labs CBC & Chem 7: 09/02/16 10:55 09/02/16 10:55 - ABG Interpretation ABG results: 09/02/16 17:32 ABG pH 7.406 ABG pCO2 60 H* ABG pO2 98 ABG HCO3 38 H ABG Total CO2 39 H ABG O2 Saturation 97.0 ABG Base Excess 11.0 H Assessment and Plan (1) Acute respiratory failure with hypoxia Current visit: Yes Status: Acute (2) Elevated d-dimer Current visit: Yes Status: Acute (3) Elevated brain natriuretic peptide (BNP) level Current visit: Yes Status: Acute (4) Encephalopathy Current visit: Yes Status: Acute (5) ARIAN (acute kidney injury) Current visit: Yes Status: Acute Assessment and Plan: I have independently evaluated and examined this patient. I reviewed the chart, the patient's history, and the SHOT FIREMAN's documented findings as above. We discussed and formulated the assessment and plan as above with additions as below: Mrs. Holt presents with increasing hypoxia in conjunction with weight loss and elevated BUN/creatinine after diuresing approximately 10 pounds since she was discharged approximately 2 weeks ago. Patient is apparently had hypoxia on 4 L of supplemental oxygen for some time as noted above. The patient remains confused when seen perseverating on something having happened in the emergency room and that she may have coded. She reports having some cough and that the oxygen mask increased sputum production. Examination reveals breath sounds to be clear anteriorly and respirations nonlabored. Cardiac rhythm is irregularly irregular with systolic murmur present as in the past. Abdomen is benign. There is no lower extremity edema and there are multiple small excoriations on the skin of the lower extremities. Skin in the upper extremity tents. Acute on chronic hypoxic respiratory present on admission. Blood gas suggest chronic hypercarbia. Titrate oxygen to low 90s. D-dimer moderately elevated, chest x-ray with slight increased vascular markings by my review but improved from prior discharge film. Cannot exclude PE at this point, empiric anticoagulation will be initiated with Eliquis. If renal function improved tomorrow we'll pursue CTA. Renal function has deteriorated and clinically patient appears dry. Hydrate gently and reevaluate in the morning. BNP is elevated but patient has known pulmonary hypertension and with hypoxia reported prior to readmission increased BNP not surprising. Patient will require PT/OT evaluations when medically stabilized. Recent overnight oximetry demonstrated sporadic hypoxia on 3 L supplemental oxygen-reported initially interpreted as having only approximately 1.5 minutes of desaturation less than 89% however on review that was actually the longest continuous episode of hypoxia and total time less than 89% was about 20 minutes by my calculation. Patient would likely benefit from CPAP or BiPAP for obesity hypoventilation syndrome if she will consider the intervention-my recollection is that his been previously tried and ejected by the patient. May require higher flow O2 at night than in the past. Discussed with Dr. Desai, chest x-ray reviewed by myself, old records reviewed, laboratory data reviewed. At high risk for complications. Hospital Course Summary Disclaimer: The visit summary below is not to be considered part of the above Progress Note.
[2016-09-02] MEDS ORDERED: TRAMADOL 50 MG TABLET PO PRN (17:20)
[2016-09-02] MEDS ORDERED: CHLORPHENIRAMINE 4 MG TABLET PO PRN (17:20)
[2016-09-02] MEDS ORDERED: CALMOSEPTINE OINTMENT 3.5gm PACKET TP SCH (17:30)
[2016-09-02] MEDS: NS 1,000 ML IV SCH (18:06)
[2016-09-02] MEDS: DOCUSATE SODIUM 100 MG CAPSULE PO SCH (22:23)
[2016-09-02] MEDS: APIXABAN 5 MG TABLET PO SCH (22:23)
[2016-09-02] MEDS: ACETAMINOPHEN 325 MG TABLET PO PRN (22:24)
[2016-09-03] MEDS ORDERED: HALOPERIDOL 1 MG TABLET PO PRN (00:55)
[2016-09-03] MEDS: NS 1,000 ML IV SCH ×4 (02:29→22:08)
[2016-09-03] MEDS: ACETAMINOPHEN 325 MG TABLET PO PRN ×2 (03:50→11:19)
[2016-09-03] MEDS: PANTOPRAZOLE 40 MG TABLET PO SCH ×2 (05:55→21:48)
[2016-09-03] MEDS: CYANOCOBALAMIN (B-12) 500mcg TABLET PO SCH (10:48)
[2016-09-03] MEDS: DOCUSATE SODIUM 100 MG CAPSULE PO SCH ×2 (10:48→22:08)
[2016-09-03] MEDS: POLYETHYL GLYCOL 3350 17gm PACKET PO SCH (10:48)
[2016-09-03] MEDS: FOLIC ACID 1 MG TABLET PO SCH (10:49)
[2016-09-03] MEDS: ALLOPURINOL 100 MG TABLET PO SCH (10:49)
[2016-09-03] MEDS: APIXABAN 5 MG TABLET PO SCH ×3 (11:59→21:49)
--- NOTE | 2016-09-03 12:02 | Progress Note ---
<Alejandra Varela V - Last Filed: 09/03/16 11:55> Subjective: Julia is seen this morning in follow up for increased respiratory distress. Rest , which were therapy. Reports this morning that she is having increased difficulty with breathing and requiring up to 12 liters by mask at times. She is placed on BiPAP to assist with spray shins. She was also given Ativan at that time to help with her anxiety. She is seen several hours later, accompanied with nursing staff. Julia appears to be confused, which may be secondary to the Ativan. She is taken off BiPAP briefly to take oral medications. During this time she will not open her eyes, She continues to state "I am dying". Telemetry revels A-fib 90-120. Objective Vital signs: Temperature 96.3 F L 09/03/16 07:47 Pulse Rate 99 09/03/16 09:09 Respiratory Rate 20 09/03/16 11:15 Blood Pressure 135/84 09/03/16 08:00 Pulse Oximetry 98 09/03/16 11:15 Oxygen Delivery Method BiPAP Oxygen Flow Rate 10 Fraction of Inspired Oxygen 60 Rhythm: Atrial Fibrillation with Normal Ventricular Rate Weight: 117.5 kg - Constitutional Present: moderate distress - Routine HEENT Exam Head: Present: normocephalic, atraumatic Eye: Present: EOMI, PERRL ENT: Present: mucous membranes dry - Routine Respiratory Exam Present: crackles (throughout bilaterally) - Routine Cardiovascular Exam Present: S1, S2, irregular rhythm - Routine Abdominal Exam Present: soft, normoactive bowel sounds - Routine Extremities Exam Present: full ROM - Routine Skin Exam Present: intact, dry, warm - Routine Neurological Exam Present: alert, CN II-XII intact, altered mental status, moving all extremities - Routine Psychiatric Exam Present: anxious. Absent: normal affect Results - Labs CBC & Chem 7: 09/03/16 04:54 09/03/16 04:54 - ABG Interpretation ABG results: 09/02/16 17:32 ABG pH 7.406 ABG pCO2 60 H* ABG pO2 98 ABG HCO3 38 H ABG Total CO2 39 H ABG O2 Saturation 97.0 ABG Base Excess 11.0 H Assessment and Plan (1) Acute respiratory failure with hypoxia Current visit: Yes Status: Acute (2) Elevated d-dimer Current visit: Yes Status: Acute (3) Elevated brain natriuretic peptide (BNP) level Current visit: Yes Status: Acute (4) Encephalopathy Current visit: Yes Status: Acute (5) ARIAN (acute kidney injury) Current visit: Yes Status: Acute Assessment and Plan: 09/03/16 Continue with scheduled Duoneb breathing treatments and Bipap for respiratory support In light of worsening hypoxia and elevated D-dimer she was started on Eliquis however she is refusing it this morning. She did have a GI bleed in May of 2016 that was through to be diverticular in nature. Will need to motnior carefully for evidence of bleeding May consider further imaging VG scan for further pulmonary evaluation to rule out PE.. Renal function remains elevated at 1.4 and BUN 57. FENa- 0.1% likely representing pre-renal azotemia possibly related to dehydration. Continue to follow routine labs. Will recheck CBC, BMP and pro-BMP tomorrow morning Will discuss further plan and orders with attending, Dr Sr Sepsis Assessment - Evaluation Sepsis screening result: No Definite Risk Hospital Course Summary Disclaimer: The visit summary below is not to be considered part of the above Progress Note. Hospital Course: 09/02/16- Admission Acute respiratory failure with hypoxia requiring 8-9 liters of oxygen to maintain saturations Encephalopathy- suspect related to hypoxia Elevated [id number] on admission Elevated proBNP- present on admission Hypertension CHF- diastolic Chronic atrial fibrillation Chronic kidney disease Chronic oxygen dependence- 3 liters by nasal cannula at baseline History pulmonary hypertension chronic back pain Gout Cataracts Osteoarthritis Depression history of scarlet fever History of GI bleed morbid obesity Plan Patient to inpatient status under the care of Dr Sr for acute respiratory failure with hypoxia requiring 9 liters of oxygen by nasal cannula, along with acute elevation of proBNP and d-Dimer, present on admission. Consult placed to respiratory therapist for ongoing oxygen evaluation and management. Currently on 8-9 liters at time of examination. Baseline is Renal function is elevated as patient is likely intramuscularly dry however may need diuresising for known diastolic congestive heart failure. Will discuss further with attending. Home Bumex on hold. Obtain ABG at time of admission. Will monitor patient. Cardiac telemetry given her chronic atrial fibrillation. At times she has rapid ventricular rate between 80 and 140. Did review home medications. SCDs/KALLIE hose to bilateral lower extremity for treatment of ongoing edema and DVT prophylaxis. In light of elevated d-dimer, accompanied with increased hypoxia may need to evaluate further to rule out a pulmonary emboli. At this time given elevated renal function will hold off on ordering CT of the chest. May need to obtain VQ scan. Will discuss with attending. Will repeat CBC and BMP tomorrow morning to follow blood counts renal function and electrolytes. Again July does wish to be a full code and this orders written. Will discuss furhter orders and plan of care with attending Dr Sr At time of discharge medical care will return to primary care provider, Dr. Kirill Clark 09/03/16 Continue with scheduled Duoneb breathing treatments and Bipap for respiratory support In light of worsening hypoxia and elevated D-dimer she was started on Eliquis however she is refusing it this morning. She did have a GI bleed in May of 2016 that was through to be diverticular in nature. Will need to motnior carefully for evidence of bleeding May consider further imaging VG scan for further pulmonary evaluation to rule out PE.. Renal function remains elevated at 1.4 and BUN 57. FENa- 0.1% likely representing pre-renal azotemia possibly related to dehydration. Continue to follow routine labs. Will recheck CBC, BMP and pro-BMP tomorrow morning Will discuss further plan and orders with attending, Dr Sr <Mariah Sr - Last Filed: 09/03/16 21:10> Objective Vital signs: Temperature 96.3 F L 09/03/16 16:00 Pulse Rate 105 H 09/03/16 16:00 Respiratory Rate 31 H 09/03/16 18:42 Blood Pressure 141/85 H 09/03/16 16:00 Pulse Oximetry 93 09/03/16 18:42 Oxygen Delivery Method BiPAP Oxygen Flow Rate 8 Fraction of Inspired Oxygen 60 Results - Labs CBC & Chem 7: 09/03/16 04:54 09/03/16 04:54 - ABG Interpretation ABG results: 09/02/16 09/03/16 17:32 20:00 ABG pH 7.406 7.532 H ABG pCO2 60 H* 45 ABG pO2 98 156 H ABG HCO3 38 H 38 H ABG Total CO2 39 H 39 H ABG O2 Saturation 97.0 100.0 H ABG Base Excess 11.0 H 13.0 H Assessment and Plan (1) Acute respiratory failure with hypoxia Current visit: Yes Status: Acute (2) Elevated d-dimer Current visit: Yes Status: Acute (3) Elevated brain natriuretic peptide (BNP) level Current visit: Yes Status: Acute (4) Encephalopathy Current visit: Yes Status: Acute (5) ARIAN (acute kidney injury) Current visit: Yes Status: Acute Assessment and Plan: I have independently evaluated and examined this patient. I reviewed the chart, the patient's history, and the LIFE COACH's documented findings as above. We discussed and formulated the assessment and plan as above with additions as below: Patient was seen midafternoon at which time she was resting comfortably with nasal cannula oxygen at 8 L and oxygen saturations in the mid 90s. She was generally coherent although occasionally perseverated on something having happened in the emergency room yesterday and references having had a cardiac arrest there. She reports that she feels terrible and is frustrated that the BiPAP mask is too tight. She continues to complain of being short of breath and that it hurts to breathe sometimes. She denied cough. 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 Nursing reports she'll only take oral medications when she is told it is Tylenol-offered tramadol for pain ( home medication) and patient became agitated that she is allergic to the medication and then refused any pain medication including Tylenol. Subsequently spoke with the patient regarding high risk nature of her illness and inability to effectively manage her disease if she refuses medications. I advised her that she is at risk for at which point she simply stated "well then I'm going to ". I attempted discussed CODE STATUS with her however she referred me to her DPOA and around about manner. The patient is alert and was not in any acute distress when I saw her. She was moving extremities symmetrically and followed simple commands. Respirations were slightly labored and became more labored as she spoke more. Breath sounds are diminished throughout but there is no wheezing and no crackles anteriorly, basilar crackles posteriorly. Cardiac rhythm is irregularly irregular and heart tones are slightly diminished. There is no peripheral edema. Patient was oriented to [facility] in 2017; she generally could follow a conversation and participate in it but intermittently her responses became tangential or she perseverated on something unrelated to the topic was attempting to discuss with her. At approximately 8:00 this evening I was notified patient was minimally responsive. BiPAP had been initiated and oxygen saturation could not be maintained. Patient was pulling the BiPAP mask off but did not respond to voice otherwise. Blood gas was obtained with resultant revealing adequate ventilation : 7.53/45/156. Discussed with RT-oxygen to be titrated downward and sat to be monitored. Stat CT head to be obtained. Of note patient was pulling at the BiPAP mask with hands when I was present. Mrs. Holt is clinically unstable. CTA will need to be pursued in the morning although patient has refused anticoagulation to date. IV fluid rate has been decreased slightly, continue ventilatory support. Discussed with Rev. Nicolas-patient's DPOA ([phone]) course to date reviewed and my concern about patient risk. CODE STATUS also discussed and Rev. Nicolas indicated that they have discussed CODE STATUS recently and patient does not want to be resuscitated if outcome would be poor. I explained that we have no way of predicting what the outcome will be but that given patient's disease state and chronic medical problems prognosis is poor. I am reluctant to consider intubation based on patient's tolerance of medical interventions in general have advised Rev. Nicolas of the same-he concurs. He hopes to discuss further with the patient and with her nephew. Staff aware that given change in patient status this evening this may need to be rediscussed tonight. Patient is critically ill-45 minutes spent with the patient earlier today and this evening. Hospital Course Summary Disclaimer: The visit summary below is not to be considered part of the above Progress Note.
[2016-09-03] MEDS ORDERED: ALBUTEROL/IPRATROPIUM 2.5mg-0.5mg/3ml NEB AEROSOL SCH (13:00)
[2016-09-03] MEDS: ALBUTEROL/IPRATROPIUM 2.5mg-0.5mg/3ml NEB AEROSOL SCH ×2 (15:06→18:42)
[2016-09-04] MEDS: SALINE FLUSH 10ml SYRINGE IVF PRN (02:59)
[2016-09-04] MEDS: NS 1,000 ML IV SCH ×2 (05:34→14:56)
[2016-09-04] MEDS: PANTOPRAZOLE 40 MG TABLET PO SCH ×2 (05:35→18:47)
[2016-09-04] MEDS: ALBUTEROL/IPRATROPIUM 2.5mg-0.5mg/3ml NEB AEROSOL SCH ×4 (07:33→19:00)
[2016-09-04] MEDS ORDERED: IOHEXOL 350mg/ml 75ml INJECTION ONE (09:32)
[2016-09-04] MEDS ORDERED: IOHEXOL 350mg/ml 50ml INJECTION ONE (09:32)
[2016-09-04] MEDS ORDERED: NS 100 ML ONE (09:33)
[2016-09-04] MEDS ORDERED: SALINE FLUSH 10ml SYRINGE ONE (09:33)
[2016-09-04] MEDS: FOLIC ACID 1 MG TABLET PO SCH (09:36)
[2016-09-04] MEDS: CYANOCOBALAMIN (B-12) 500mcg TABLET PO SCH (09:36)
[2016-09-04] MEDS: ALLOPURINOL 100 MG TABLET PO SCH (09:37)
[2016-09-04] MEDS: DOCUSATE SODIUM 100 MG CAPSULE PO SCH ×2 (09:37→21:00)
[2016-09-04] MEDS: APIXABAN 5 MG TABLET PO SCH (09:38)
[2016-09-04] MEDS: POLYETHYL GLYCOL 3350 17gm PACKET PO SCH (09:39)
--- NOTE | 2016-09-04 10:51 | Progress Note ---
<Alejandra Varela V - Last Filed: 09/04/16 10:48> Subjective: Julia is seen this morning in follow up. She is currenetly requiring 9 liters of oxygen by high flow nasal cannula to maintain saturations. She anxious on evalaution stating "they say I don't have enough oxygen". Discussed obtaining a CT-PE to rule out pulmonary emboli. Given continued hypoxia, accompanied with elevated d-dimer. She does agree to this study, however, states "if I passed out. Just let me go". Also discussed obtaining an MRI of the brain to rule out acute ischemia. However, patient states that she cannot tolerate this procedure and light flat. She denies pain at time of examination. Objective Vital signs: Temperature 97.6 F 09/04/16 07:20 Pulse Rate 113 H 09/04/16 08:00 Respiratory Rate 24 09/04/16 07:34 Blood Pressure 174/72 H 09/04/16 07:20 Pulse Oximetry 94 09/04/16 07:34 Oxygen Delivery Method High Flow Nasal Cannula Oxygen Flow Rate 9 Fraction of Inspired Oxygen 80 SaO2/FiO2 Ratio 116 Weight: 116.573 kg - Constitutional Present: moderate distress - Routine HEENT Exam Head: Present: normocephalic, atraumatic Eye: Present: EOMI, PERRL - Routine Respiratory Exam Present: wheezes (expiratory wheezing anteriorly) - Routine Cardiovascular Exam Present: RRR, S1, S2 - Routine Abdominal Exam Present: soft, normoactive bowel sounds - Routine Back/Spine/Pelvis Exam Back/Spine: Present: full ROM - Routine Skin Exam Present: intact, dry, warm - Routine Neurological Exam Present: alert, CN II-XII intact, moving all extremities - Routine Psychiatric Exam Present: anxious, paranoid Results - Labs CBC & Chem 7: 09/04/16 08:03 09/04/16 08:03 - ABG Interpretation ABG results: 09/02/16 09/03/16 17:32 20:00 ABG pH 7.406 7.532 H ABG pCO2 60 H* 45 ABG pO2 98 156 H ABG HCO3 38 H 38 H ABG Total CO2 39 H 39 H ABG O2 Saturation 97.0 100.0 H ABG Base Excess 11.0 H 13.0 H Assessment and Plan (1) Acute respiratory failure with hypoxia Current visit: Yes Status: Acute (2) Elevated d-dimer Current visit: Yes Status: Acute (3) Elevated brain natriuretic peptide (BNP) level Current visit: Yes Status: Acute (4) Encephalopathy Current visit: Yes Status: Acute (5) ARIAN (acute kidney injury) Current visit: Yes Status: Acute Assessment and Plan: 09/04/16 Julia is agreeable to obtaining the CT to rule out pulmonary emboli. Since her renal function has now improved. Likely need to utilize when necessary Ativan to help patient relax so that she can lie still Did discuss and recommend MRI of the brain to rule out CVA. Julia refuses at this time. Will need to discuss anticoagulation or ASA. Continue with oxygenation to maintain adequate saturations. Creatinine does appear to have improved down to 1.2. ProBNP has trended down to 7620 today. Continue with hydration given pre-renal azotemia appearance of labs. Remains in A-fib on cardiac telemetry. Dr Sr did speak with DPOA last evening regarding concern for overall status, code status and ongoing status. Sepsis Assessment - Evaluation Sepsis screening result: No Definite Risk Hospital Course Summary Disclaimer: The visit summary below is not to be considered part of the above Progress Note. Hospital Course: 09/02/16- Admission Acute respiratory failure with hypoxia requiring 8-9 liters of oxygen to maintain saturations Encephalopathy- suspect related to hypoxia Elevated [id number] on admission Elevated proBNP- present on admission Hypertension CHF- diastolic Chronic atrial fibrillation Chronic kidney disease Chronic oxygen dependence- 3 liters by nasal cannula at baseline History pulmonary hypertension chronic back pain Gout Cataracts Osteoarthritis Depression history of scarlet fever History of GI bleed morbid obesity Plan Patient to inpatient status under the care of Dr Sr for acute respiratory failure with hypoxia requiring 9 liters of oxygen by nasal cannula, along with acute elevation of proBNP and d-Dimer, present on admission. Consult placed to respiratory therapist for ongoing oxygen evaluation and management. Currently on 8-9 liters at time of examination. Baseline is Renal function is elevated as patient is likely intramuscularly dry however may need diuresising for known diastolic congestive heart failure. Will discuss further with attending. Home Bumex on hold. Obtain ABG at time of admission. Will monitor patient. Cardiac telemetry given her chronic atrial fibrillation. At times she has rapid ventricular rate between 80 and 140. Did review home medications. SCDs/KALLIE hose to bilateral lower extremity for treatment of ongoing edema and DVT prophylaxis. In light of elevated d-dimer, accompanied with increased hypoxia may need to evaluate further to rule out a pulmonary emboli. At this time given elevated renal function will hold off on ordering CT of the chest. May need to obtain VQ scan. Will discuss with attending. Will repeat CBC and BMP tomorrow morning to follow blood counts renal function and electrolytes. Again Julia does wish to be a full code and this orders written. Will discuss furhter orders and plan of care with attending Dr Sr At time of discharge medical care will return to primary care provider, Dr. Kirill Clark 09/03/16 Continue with scheduled Duoneb breathing treatments and Bipap for respiratory support In light of worsening hypoxia and elevated D-dimer she was started on Eliquis however she is refusing it this morning. She did have a GI bleed in May of 2016 that was through to be diverticular in nature. Will need to motnior carefully for evidence of bleeding May consider further imaging VG scan for further pulmonary evaluation to rule out PE.. Renal function remains elevated at 1.4 and BUN 57. FENa- 0.1% likely representing pre-renal azotemia possibly related to dehydration. Continue to follow routine labs. Will recheck CBC, BMP and pro-BMP tomorrow morning Will discuss further plan and orders with attending, Dr Sr 09/04/16 Julia is agreeable to obtaining the CT to rule out pulmonary emboli. Since her renal function has now improved. Likely need to utilize when necessary Ativan to help patient relax so that she can lie still Did discuss and recommend MRI of the brain to rule out CVA. Julia refuses at this time. Will need to discuss anticoagulation or ASA. Continue with oxygenation to maintain adequate saturations. Creatinine does appear to have improved down to 1.2. ProBNP has trended down to 7620 today. Continue with hydration given pre-renal azotemia appearance of labs. Remains in A-fib on cardiac telemetry. Dr Sr did speak with DPOA last evening regarding concern for overall status, code status and ongoing status. <Mariah Sr Last Filed: 09/04/16 18:34> Objective Vital signs: Temperature 97.6 F 09/04/16 07:20 Pulse Rate 113 H 09/04/16 08:00 Respiratory Rate 24 09/04/16 14:30 Blood Pressure 174/72 H 09/04/16 07:20 Pulse Oximetry 95 09/04/16 14:30 Oxygen Delivery Method CPAP Oxygen Flow Rate 9 Fraction of Inspired Oxygen 80 SaO2/FiO2 Ratio 116 Results - Labs CBC & Chem 7: 09/04/16 08:03 09/04/16 08:03 - ABG Interpretation ABG results: 09/02/16 09/03/16 17:32 20:00 ABG pH 7.406 7.532 H ABG pCO2 60 H* 45 ABG pO2 98 156 H ABG HCO3 38 H 38 H ABG Total CO2 39 H 39 H ABG O2 Saturation 97.0 100.0 H ABG Base Excess 11.0 H 13.0 H Assessment and Plan (1) Acute respiratory failure with hypoxia Current visit: Yes Status: Acute (2) Elevated brain natriuretic peptide (BNP) level Current visit: Yes Status: Acute (3) Encephalopathy Current visit: Yes Status: Acute (4) ARIAN (acute kidney injury) Current visit: Yes Status: Acute (5) Elevated d-dimer Problem details: CTA negative for large vessel PE Current visit: Yes Status : Acute DVT Prophylaxis: SCD's Resuscitation Status: Full Code Assessment and Plan: I have independently evaluated and examined this patient. I reviewed the chart, the patient's history, and the [employer]'s documented findings as above. We discussed and formulated the assessment and plan as above with additions as below: Patient is intermittently able to respond to questions appropriately but at other times is confused. Did not make grossly inappropriate statements in my presence today. She reported ongoing difficulty breathing and nursing/RT reports that she is frequently pulling BiPAP mask off and that multiple masks of been tried. CPAP trial with nasal mask/chinstrap initiated late this afternoon to determine if this is better tolerated. The patient continues to complain of dry mouth. Patient is sleepy but responds to questions-sometimes requires stimulation to do so. Currently on 15 L per high flow nasal cannula with oxygen saturations 88-90% Respirations clear in the upper anterior keane but diminished lateral bases. Poor inspiratory effort. Irregularly irregular rhythm, S1 and S2. Trace lower extremity edema. CTA reviewed by myself demonstrating large right and moderate left pleural effusions; possible infiltrate versus atelectasis bibasilar right middle lobe and lingula. No evidence of large vessel PE per radiology. CT head obtained overnight without contrast with significant volume hypodense lesions in the frontoparietal white matter and basal ganglia suggestive of microvascular ischemia of indeterminate age. Blood cultures 2 negative after 2 days. White count normal. BNP improving, creatinine slightly improved today. Continue hydration overnight given administration of contrast today. Large volume pleural effusion may be contributing to it acute/chronic hypoxia and I suspect that thoracentesis will be needed for management. This was discussed briefly with the patient and will be discussed further with patient's DPOA to determine if they wish to proceed. Oxygen demand higher this morning and through the early afternoon although titrated from 60 to 50% O2 with BiPAP this afternoon. Patient advised probability of small strokes based on CT and need for anticoagulation due to underlying chronic atrial fibrillation-continues to refuse due to risk of GI bleed which she considers the greater risk. Has been previously discussed with her DPOA who felt she could make this decision and that this is been a consistent wish on the patient's part. Possible pneumonia versus atelectasis-at risk for aspiration, will initiate IV clindamycin. Obtain sputum culture if possible. Prognosis poor. [employer]dress CODE STATUS with the patient's DPOA later this evening or tomorrow morning. Nursing and RT provide supplemental history, CT head, CTA chest reviewed by myself, high-risk illness. Hospital Course Summary Disclaimer: The visit summary below is not to be considered part of the above Progress Note.
[2016-09-04] MEDS: ACETAMINOPHEN 325 MG TABLET PO PRN (15:52)
[2016-09-04] MEDS: CLINDAMYCIN PB 300 MG/50 ML BAG IV SCH (21:48)
[2016-09-05] MEDS: HALOPERIDOL 5 MG/ML INJECTION IVP PRN ×3 (01:30→22:10)
[2016-09-05] MEDS: SALINE FLUSH 10ml SYRINGE IVF PRN (01:46)
[2016-09-05] MEDS: CLINDAMYCIN PB 300 MG/50 ML BAG IV SCH ×4 (02:28→18:32)
[2016-09-05] MEDS: NS 1,000 ML IV SCH ×2 (05:24→18:33)
[2016-09-05] MEDS: PANTOPRAZOLE 40 MG TABLET PO SCH ×2 (07:26→17:00)
[2016-09-05] MEDS: ALBUTEROL/IPRATROPIUM 2.5mg-0.5mg/3ml NEB AEROSOL SCH ×4 (07:45→19:10)
--- NOTE | 2016-09-05 10:00 | CT Scan Report ---
Indication: dyspnea, elevated D-dimer PROCEDURE: CT angio pulm emboli / aorta: Encounter: Initial Comparison: None Technique: Axial CT pulmonary angiographic phase images were performed through the chest after the administration of intravenous contrast. Coronal and Sagittal MIP reconstructed images were created and reviewed. Axial CT angiography of the chest, abdomen and pelvis was also performed before and after contrast for evaluation of the aorta. Coronal and sagittal MIP reconstructed images were created and reviewed. Three-dimensional surface shaded volume rendered imaging of the aorta was also created by the technologist on a dedicated workstation under the direction of the interpreting radiologist and reviewed. Automated Exposure Control and Iterative Reconstruction dose reducing techniques were utilized. Contrast: Omnipaque 350 120 mL Findings: CTA chest for PE: Pulmonary arteries: Exam is diagnostic to the segmental pulmonary arterial level only. No large filling defects identified to confirm a pulmonary embolus. Subsegmental pulmonary arteries cannot be well evaluated due to the motion artifact present. Other findings: Moderate right and small left pleural effusions. No pneumothorax. Bilateral lower lobe atelectasis and consolidation. Upper abdomen shows no acute findings. Cirrhotic liver. Heart is enlarged. No pericardial effusion. No adenopathy. The visualized portions of the abdomen show no evidence of bowel obstruction. No evidence of abdominal aortic aneurysm. Arterial phase solid organs are grossly normal. CTA chest for aorta: No evidence of aneurysm or dissection in the chest, abdomen or pelvis. No acute aortic abnormality seen. Impression: 1. Limited exam due to severe artifact and other technical factors. No pulmonary embolus or acute aortic syndrome seen. 2. Pleural effusions and findings of severe congestive failure. .
--- NOTE | 2016-09-05 10:42 | CT Scan Report ---
Indication: decreased LOC and change in ABG PROCEDURE: CT head/brain wo con: Encounter: Initial Comparison: None Technique: Axial CT images through the head were performed without contrast. Iterative Reconstruction dose reducing technique was utilized. FINDINGS: The ventricles are of normal size, shape, and contour for the patient's age. There are numerous areas of low attenuation in the white matter which most likely represent changes from chronic microvascular ischemia. The brainstem, cerebellum, and cerebral hemispheres otherwise have a normal morphology and CT attenuation. There is no evidence of midline displacement. No hemorrhage, signs of acute territorial stroke, mass effect, mass lesions, or edema is evident. The visualized portions of the skull base, midface, and calvarium demonstrate no abnormality. The paranasal sinuses are well aerated and free of significant disease. The tympanic and mastoid cavities appear normal. IMPRESSION: No acute intracranial abnormality or hemorrhage. Slightly advanced white matter disease for age. There is a preliminary report by [facility]. .
--- NOTE | 2016-09-05 10:57 | XRay Report ---
Indication: hypoxia PROCEDURE: XR chest 1V: Encounter: Initial Comparison: Chest x-ray dated September 02, [address] angiogram of the chest dated September 04, 2016 Findings: Findings of congestive failure remain with a mild to moderate amount of pulmonary edema. No pneumothorax. Small effusions and continued interstitial prominence. Heart size and mediastinal contours are stable. Impression: Continued mild to moderate pulmonary edema may be slightly improved from the CT. .
[2016-09-05] MEDS: CYANOCOBALAMIN (B-12) 500mcg TABLET PO SCH ×2 (11:25→11:26)
[2016-09-05] MEDS: FOLIC ACID 1 MG TABLET PO SCH ×2 (11:25)
[2016-09-05] MEDS: ALLOPURINOL 100 MG TABLET PO SCH (11:26)
[2016-09-05] MEDS: POLYETHYL GLYCOL 3350 17gm PACKET PO SCH (11:41)
[2016-09-05] MEDS: DOCUSATE SODIUM 100 MG CAPSULE PO SCH ×2 (11:41→20:29)
--- NOTE | 2016-09-05 15:59 | Progress Note ---
<Pat Augustin D - Last Filed: 09/05/16 15:56> Subjective: Julia is seen today in follow up. She is fairly sleepy; she has been fairly noncompliant with wearing the Bipap. Nursing reports she was more sleepy today,did not eat much. RT did put her back on the Bipap, which patient actually requested. I suspect her sedation is more related to hypercarbia; d/w RN and call parameters discussed. Objective Vital signs: Temperature 98.0 F 09/05/16 08:15 Pulse Rate 88 09/05/16 13:56 Respiratory Rate 15 09/05/16 15:30 Blood Pressure 130/85 09/05/16 13:56 Pulse Oximetry 93 09/05/16 15:30 Oxygen Delivery Method BiPAP Oxygen Flow Rate 13 Fraction of Inspired Oxygen 60 SaO2/FiO2 Ratio 116 Weight: 117.3 kg - Constitutional Present: no acute distress, obese, somnolent - Routine Respiratory Exam Present: decreased breath sounds, distant breath sounds. Absent: rales, rhonchi , wheezes, crackles Comments: Bipap is in place - Routine Cardiovascular Exam Present: RRR, S1, S2, no murmur - Routine Abdominal Exam Present: soft, normoactive bowel sounds, non distended, non tender - Routine Extremities Exam Present: edema (Trace), non tender - Routine Musculoskeletal Exam Musculoskeletal: Present: no clubbing or cyanosis - Routine Skin Exam Present: intact, dry, warm - Routine Neurological Exam Present: altered mental status Results - Labs CBC & Chem 7: 09/05/16 04:42 09/05/16 04:42 - ABG Interpretation ABG results: 09/02/16 09/03/16 17:32 20:00 ABG pH 7.406 7.532 H ABG pCO2 60 H* 45 ABG pO2 98 156 H ABG HCO3 38 H 38 H ABG Total CO2 39 H 39 H ABG O2 Saturation 97.0 100.0 H ABG Base Excess 11.0 H 13.0 H Assessment and Plan (1) Acute respiratory failure with hypoxia Current visit: Yes Status: Acute (2) Elevated d-dimer Problem details: CTA negative for large vessel PE Current visit: Yes Status : Acute (3) Elevated brain natriuretic peptide (BNP) level Current visit: Yes Status: Acute (4) Encephalopathy Current visit: Yes Status: Acute (5) ARIAN (acute kidney injury) Current visit: Yes Status: Acute (6) Gout Current visit: No Status: Chronic (7) HTN (hypertension) Current visit: No Status: Chronic (8) Pulmonary hypertension Current visit: No Status: Chronic (9) Supplemental oxygen dependent Current visit: No Status: Chronic (10) Atrial fibrillation Current visit: Yes Status: Acute DVT Prophylaxis: Eliquis GI Prophylaxis: other Resuscitation Status: Full Code Assessment and Plan: 09/05/16- July continues to display significant respiratory failure. Continue Bipap is she is willing, but she has been variable with compliance. Requiring High Flow oxygen otherwise for hypoxia. It appears she may have significant heart failure, but overall px is fairly poor. If family wishes to continue aggressive care, we could consider an echo. She is requiring IVF right now due to decreased PO intake. RN did report following initial exam that her mentation had improved post 1 hours bipap. She then became agitated and required ativan. CTA negative for PE. She remains on Eliquis due to Chronic Atrial Fib. She does have a hx of GI bleed- may want to consider basic ASA therapy for her atrial fib. Repeat labs in AM. Sepsis Assessment - Evaluation Sepsis screening result: No Definite Risk Hospital Course Summary Disclaimer: The visit summary below is not to be considered part of the above Progress Note. Hospital Course: 09/02/16- Admission Acute respiratory failure with hypoxia requiring 8-9 liters of oxygen to maintain saturations Encephalopathy- suspect related to hypoxia Elevated [id number] on admission Elevated proBNP- present on admission Hypertension CHF- diastolic Chronic atrial fibrillation Chronic kidney disease Chronic oxygen dependence- 3 liters by nasal cannula at baseline History pulmonary hypertension chronic back pain Gout Cataracts Osteoarthritis Depression history of scarlet fever History of GI bleed morbid obesity Plan Patient to inpatient status under the care of Dr Sr for acute respiratory failure with hypoxia requiring 9 liters of oxygen by nasal cannula, along with acute elevation of proBNP and d-Dimer, present on admission. Consult placed to respiratory therapist for ongoing oxygen evaluation and management. Currently on 8-9 liters at time of examination. Baseline is Renal function is elevated as patient is likely intramuscularly dry however may need diuresising for known diastolic congestive heart failure. Will discuss further with attending. Home Bumex on hold. Obtain ABG at time of admission. Will monitor patient. Cardiac telemetry given her chronic atrial fibrillation. At times she has rapid ventricular rate between 80 and 140. Did review home medications. SCDs/KALLIE hose to bilateral lower extremity for treatment of ongoing edema and DVT prophylaxis. In light of elevated d-dimer, accompanied with increased hypoxia may need to evaluate further to rule out a pulmonary emboli. At this time given elevated renal function will hold off on ordering CT of the chest. May need to obtain VQ scan. Will discuss with attending. Will repeat CBC and BMP tomorrow morning to follow blood counts renal function and electrolytes. Again Julia does wish to be a full code and this orders written. Will discuss furhter orders and plan of care with attending Dr Sr At time of discharge medical care will return to primary care provider, Dr. Kirill Clark 09/03/16 Continue with scheduled Duoneb breathing treatments and Bipap for respiratory support In light of worsening hypoxia and elevated D-dimer she was started on Eliquis however she is refusing it this morning. She did have a GI bleed in May of 2016 that was through to be diverticular in nature. Will need to motnior carefully for evidence of bleeding May consider further imaging VG scan for further pulmonary evaluation to rule out PE.. Renal function remains elevated at 1.4 and BUN 57. FENa- 0.1% likely representing pre-renal azotemia possibly related to dehydration. Continue to follow routine labs. Will recheck CBC, BMP and pro-BMP tomorrow morning Will discuss further plan and orders with attending, Dr Sr 09/04/16July is agreeable to obtaining the CT to rule out pulmonary emboli. Since her renal function has now improved. Likely need to utilize when necessary Ativan to help patient relax so that she can lie still Did discuss and recommend MRI of the brain to rule out CVA. Julia refuses at this time. Will need to discuss anticoagulation or ASA. Continue with oxygenation to maintain adequate saturations. Creatinine does appear to have improved down to 1.2. ProBNP has trended down to 7620 today. Continue with hydration given pre-renal azotemia appearance of labs. Remains in A-fib on cardiac telemetry. Dr Sr did speak with DPOA last evening regarding concern for overall status, code status and ongoing status. 09/05/16 16:09 Julia continues to display significant respiratory failure. Continue Bipap is she is willing, but she has been variable with compliance. Requiring High Flow oxygen otherwise for hypoxia. It appears she may have significant heart failure, but overall px is fairly poor. If family wishes to continue aggressive care, we could consider an echo. She is requiring IVF right now due to decreased PO intake. RN did report following initial exam that her mentation had improved post 1 hours bipap. She then became agitated and required ativan. CTA negative for PE. She remains on Eliquis due to Chronic Atrial Fib. She does have a hx of GI bleed- may want to consider basic ASA therapy for her atrial fib. Repeat labs in AM. <Mariah Sr - Last Filed: 09/05/16 20:37> Objective Vital signs: Temperature 97.3 F 09/05/16 15:54 Pulse Rate 107 H 09/05/16 15:54 Respiratory Rate 16 09/05/16 19:10 Blood Pressure 148/89 H 09/05/16 15:54 Pulse Oximetry 96 09/05/16 19:10 Oxygen Delivery Method BiPAP Oxygen Flow Rate 13 Fraction of Inspired Oxygen 60 SaO2/FiO2 Ratio 116 Results - Labs CBC & Chem 7: 09/05/16 04:42 09/05/16 04:42 - ABG Interpretation ABG results: 09/02/16 09/03/16 17:32 20:00 ABG pH 7.406 7.532 H ABG pCO2 60 H* 45 ABG pO2 98 156 H ABG HCO3 38 H 38 H ABG Total CO2 39 H 39 H ABG O2 Saturation 97.0 100.0 H ABG Base Excess 11.0 H 13.0 H Assessment and Plan (1) HTN (hypertension) Current visit: No Status: Chronic (2) Pulmonary hypertension Current visit: No Status: Chronic (3) Supplemental oxygen dependent Current visit: No Status: Chronic (4) Acute respiratory failure with hypoxia Current visit: Yes Status: Acute (5) Elevated d-dimer Problem details: CTA negative for large vessel PE Current visit: Yes Status : Acute (6) Elevated brain natriuretic peptide (BNP) level Current visit: Yes Status: Acute (7) Encephalopathy Current visit: Yes Status: Acute (8) ARIAN (acute kidney injury) Current visit: Yes Status: Acute (9) Atrial fibrillation Current visit: Yes Status: Acute (10) Pleural effusion Current visit: Yes Status: Acute Assessment and Plan: I have independently evaluated and examined this patient. I reviewed the chart, the patient's history, and the TELEPHONE SERVICE ADVISER's documented findings as above. We discussed and formulated the assessment and plan as above with additions as below: July was less responsive than prior days, speech was very mumbled and she did not respond to questions in a meaningful manner. Nursing reports occasional episodes where she is able to respond to questions. Patient oriented to "home". She continues to pull at the BiPAP mask frequently. Lethargic. Diminished airflow, upper anterior breath sounds are clear but minimal airflow is audible in the lower lungs Telemetry reviewed-atrial fibrillation with low-grade tachycardia. Laboratory data stable, HCO3 32. Spoke with Rev. Nicolas-patient's DPOA regarding pleural effusions and possible thoracentesis for symptomatic management of dyspnea. He was in agreement with proceeding with right thoracentesis if it may offer some benefit to patient. He'll attempt to discuss CODE STATUS with the patient yesterday but was unable to do so due to her lethargy. Patient remains a full code at this time. INR to be checked in the morning in anticipation of thoracentesis with radiology guidance tomorrow. Continue low-volume fluids following IV contrast yesterday. Add aspirin if patient will take it-she again refused consideration of anticoagulation in one of the few things I could make out today. Echocardiogram scheduled. Continues to require BiPAP assistance nearly all day long, prognosis poor. At high risk for complications. Hospital Course Summary Disclaimer: The visit summary below is not to be considered part of the above Progress Note.
[2016-09-06] MEDS: CLINDAMYCIN PB 300 MG/50 ML BAG IV SCH ×4 (00:13→18:39)
[2016-09-06] MEDS: SALINE FLUSH 10ml SYRINGE IVF PRN ×3 (00:33→22:13)
[2016-09-06] MEDS: HALOPERIDOL 5 MG/ML INJECTION IVP PRN ×2 (03:21→08:40)
[2016-09-06] MEDS: PANTOPRAZOLE 40 MG TABLET PO SCH ×2 (06:11→17:00)
[2016-09-06] MEDS: ALBUTEROL/IPRATROPIUM 2.5mg-0.5mg/3ml NEB AEROSOL SCH ×5 (08:19→20:10)
[2016-09-06] MEDS: NS 1,000 ML IV SCH (08:40)
--- NOTE | 2016-09-06 08:45 | XRay Report ---
EXAM: XR chest 1V LOCATION OF DICTATION: [facility] HISTORY: CHF COMPARISON: Compared to September 04, 2016 FINDINGS: The heart is mildly enlarged. There is stable mild prominence of the central bronchovascular markings. There is improved aeration when compared with two days earlier with mild residual interstitial/alveolar pulmonary edema suggested. No definite pleural effusions. No pneumothorax. Limited depth of inspiration. Mild spondylosis of the thoracic spine. Marked osteoarthrosis of the left shoulder joint. IMPRESSION: 1. Persistent findings suggestive of congestive heart failure and pulmonary edema though improved aeration within the lungs when compared with two days earlier. .
[2016-09-06] MEDS: CYANOCOBALAMIN (B-12) 500mcg TABLET PO SCH (09:00)
[2016-09-06] MEDS: ASPIRIN *EC* 81 MG TABLET PO SCH (09:00)
[2016-09-06] MEDS: POLYETHYL GLYCOL 3350 17gm PACKET PO SCH (09:00)
[2016-09-06] MEDS: ALLOPURINOL 100 MG TABLET PO SCH (09:00)
[2016-09-06] MEDS: DOCUSATE SODIUM 100 MG CAPSULE PO SCH ×3 (09:00→21:02)
[2016-09-06] MEDS: FOLIC ACID 1 MG TABLET PO SCH (09:00)
--- NOTE | 2016-09-06 11:35 | Progress Note ---
<Alejandra Varela V - Last Filed: 09/06/16 11:27> Subjective: Julia is seen today in follow up. She is sleeping with Bi-pap inplace during examination. She does not arouse during examination. Nursing staff reports that she has been refusing care and medications. Bp this morning 122/76. Objective Vital signs: Temperature 96.7 F L 09/06/16 07:41 Pulse Rate 105 H 09/06/16 08:00 Respiratory Rate 22 09/06/16 10:41 Blood Pressure 122/76 09/06/16 07:41 Pulse Oximetry 91 09/06/16 10:41 Oxygen Delivery Method Nasal Cannula Oxygen Flow Rate 14 Fraction of Inspired Oxygen 60 SaO2/FiO2 Ratio 116 Weight: 124.7 kg - Constitutional Present: no acute distress - Routine HEENT Exam Head: Present: normocephalic, atraumatic - Routine Respiratory Exam Comments: Decreased breath sounds throughout - Routine Cardiovascular Exam Present: RRR, S1, S2 - Routine Abdominal Exam Present: soft, normoactive bowel sounds - Routine Extremities Exam Present: full ROM - Routine Back/Spine/Pelvis Exam Back/Spine: Present: full ROM - Routine Skin Exam Present: intact, dry, warm - Routine Neurological Exam Present: altered mental status, moving all extremities Results - Labs CBC & Chem 7: 09/06/16 04:52 09/06/16 04:52 - ABG Interpretation ABG results: 09/02/16 09/03/16 09/06/16 17:32 20:00 07:43 ABG pH 7.406 7.532 H 7.270 L ABG pCO2 60 H* 45 74 H* ABG pO2 98 156 H 56 L ABG HCO3 38 H 38 H 34 H ABG Total CO2 39 H 39 H 36.3 H ABG O2 Saturation 97.0 100.0 H 84.0 L ABG Base Excess 11.0 H 13.0 H 4.9 H Assessment and Plan (1) HTN (hypertension) Current visit: No Status: Chronic (2) Pulmonary hypertension Current visit: No Status: Chronic (3) Supplemental oxygen dependent Current visit: No Status: Chronic (4) Acute respiratory failure with hypoxia Current visit: Yes Status: Acute (5) Elevated d-dimer Problem details: CTA negative for large vessel PE Current visit: Yes Status : Acute (6) Elevated brain natriuretic peptide (BNP) level Current visit: Yes Status: Acute (7) Encephalopathy Current visit: Yes Status: Acute (8) ARIAN (acute kidney injury) Current visit: Yes Status: Acute (9) Atrial fibrillation Current visit: Yes Status: Acute (10) Pleural effusion Current visit: Yes Status: Acute Assessment and Plan: 09/06/16 Responsiveness continues to be intermittent. Nursing staff reports she pulls off Bi-pap and IV lines at times requiring ativan. Chest xray this morning did reveal improvement of edema and aeration without obvious pleural effusion. She continues on BiPAP- Bicarb today is 34. Today, she is refusing all medications orally. Continues on IV fluids for ongoing hydration Renal function continues to improve, creatinine today 1.2. Awaiting to speak with Reverend Maria Isabel NIX later today as he was going to talk with patient and other family members regarding code status. Did discuss further orders and plan of care with attending, Dr. Dunham Sepsis Assessment - Evaluation Sepsis screening result: No Definite Risk Hospital Course Summary Disclaimer: The visit summary below is not to be considered part of the above Progress Note. Hospital Course: 09/02/16- Admission Acute respiratory failure with hypoxia requiring 8-9 liters of oxygen to maintain saturations Encephalopathy- suspect related to hypoxia Elevated [id number] on admission Elevated proBNP- present on admission Hypertension CHF- diastolic Chronic atrial fibrillation Chronic kidney disease Chronic oxygen dependence- 3 liters by nasal cannula at baseline History pulmonary hypertension chronic back pain Gout Cataracts Osteoarthritis Depression history of scarlet fever History of GI bleed morbid obesity Plan Patient to inpatient status under the care of Dr Sr for acute respiratory failure with hypoxia requiring 9 liters of oxygen by nasal cannula, along with acute elevation of proBNP and d-Dimer, present on admission. Consult placed to respiratory therapist for ongoing oxygen evaluation and management. Currently on 8-9 liters at time of examination. Baseline is Renal function is elevated as patient is likely intramuscularly dry however may need diuresising for known diastolic congestive heart failure. Will discuss further with attending. Home Bumex on hold. Obtain ABG at time of admission. Will monitor patient. Cardiac telemetry given her chronic atrial fibrillation. At times she has rapid ventricular rate between 80 and 140. Did review home medications. SCDs/KALLIE hose to bilateral lower extremity for treatment of ongoing edema and DVT prophylaxis. In light of elevated d-dimer, accompanied with increased hypoxia may need to evaluate further to rule out a pulmonary emboli. At this time given elevated renal function will hold off on ordering CT of the chest. May need to obtain VQ scan. Will discuss with attending. Will repeat CBC and BMP tomorrow morning to follow blood counts renal function and electrolytes. Again July does wish to be a full code and this orders written. Will discuss furhter orders and plan of care with attending Dr Sr At time of discharge medical care will return to primary care provider, Dr. Kirill Clark 09/03/16 Continue with scheduled Duoneb breathing treatments and Bipap for respiratory support In light of worsening hypoxia and elevated D-dimer she was started on Eliquis however she is refusing it this morning. She did have a GI bleed in May of 2016 that was through to be diverticular in nature. Will need to motnior carefully for evidence of bleeding May consider further imaging VG scan for further pulmonary evaluation to rule out PE.. Renal function remains elevated at 1.4 and BUN 57. FENa- 0.1% likely representing pre-renal azotemia possibly related to dehydration. Continue to follow routine labs. Will recheck CBC, BMP and pro-BMP tomorrow morning Will discuss further plan and orders with attending, Dr Sr 09/04/16July is agreeable to obtaining the CT to rule out pulmonary emboli. Since her renal function has now improved. Likely need to utilize when necessary Ativan to help patient relax so that she can lie still Did discuss and recommend MRI of the brain to rule out CVA. July refuses at this time. Will need to discuss anticoagulation or ASA. Continue with oxygenation to maintain adequate saturations. Creatinine does appear to have improved down to 1.2. ProBNP has trended down to 7620 today. Continue with hydration given pre-renal azotemia appearance of labs. Remains in A-fib on cardiac telemetry. Dr Sr did speak with DPOA last evening regarding concern for overall status, code status and ongoing status. 09/05/16 16:09 July continues to display significant respiratory failure. Continue Bipap is she is willing, but she has been variable with compliance. Requiring High Flow oxygen otherwise for hypoxia. It appears she may have significant heart failure, but overall px is fairly poor. If family wishes to continue aggressive care, we could consider an echo. She is requiring IVF right now due to decreased PO intake. RN did report following initial exam that her mentation had improved post 1 hours bipap. She then became agitated and required ativan. CTA negative for PE. She remains on Eliquis due to Chronic Atrial Fib. She does have a hx of GI bleed- may want to consider basic ASA therapy for her atrial fib. Repeat labs in AM. 09/06/16 Responsiveness continues to be intermittent. Nursing staff reports she pulls off Bi-pap and IV lines at times requiring ativan. Chest xray this morning did reveal improvement of edema and aeration without obvious pleural effusion. She continues on BiPAP- Bicarb today is 34. Today, she is refusing all medications orally. Continues on IV fluids for ongoing hydration Renal function continues to improve, creatinine today 1.2. Awaiting to speak with Reverend Maria Isabel NIX later today as he was going to talk with patient and other family members regarding code status. Did discuss further orders and plan of care with attending, Dr. Dunham <[place] Dunham - Last Filed: 09/06/16 16:21> Objective Vital signs: Temperature 96.7 F L 09/06/16 07:41 Pulse Rate 105 H 09/06/16 15:55 Respiratory Rate 20 09/06/16 15:55 Blood Pressure 139/92 H 09/06/16 15:55 Pulse Oximetry 94 09/06/16 15:55 Oxygen Delivery Method Nasal Cannula Oxygen Flow Rate 60 Fraction of Inspired Oxygen 60 SaO2/FiO2 Ratio 116 Results - Labs CBC & Chem 7: 09/06/16 04:52 09/06/16 04:52 - ABG Interpretation ABG results: 09/02/16 09/03/16 09/06/16 17:32 20:00 07:43 ABG pH 7.406 7.532 H 7.270 L ABG pCO2 60 H* 45 74 H* ABG pO2 98 156 H 56 L ABG HCO3 38 H 38 H 34 H ABG Total CO2 39 H 39 H 36.3 H ABG O2 Saturation 97.0 100.0 H 84.0 L ABG Base Excess 11.0 H 13.0 H 4.9 H Assessment and Plan (1) Acute respiratory failure with hypoxia Current visit: Yes Status: Acute (2) Encephalopathy Current visit: Yes Status: Acute (3) Elevated brain natriuretic peptide (BNP) level Current visit: Yes Status: Acute (4) Pulmonary hypertension Current visit: No Status: Chronic (5) HTN (hypertension) Current visit: No Status: Chronic (6) Supplemental oxygen dependent Current visit: No Status: Chronic (7) Elevated d-dimer Problem details: CTA negative for large vessel PE Current visit: Yes Status : Acute (8) ARIAN (acute kidney injury) Current visit: Yes Status: Acute (9) Atrial fibrillation Current visit: Yes Status: Acute (10) Pleural effusion Current visit: Yes Status: Acute DVT Prophylaxis: SCD's Assessment and Plan: Have independently interviewed and examined pt. Chart reviewed. Case discussed with CM, Pt's DPOA, and my ARPN. Care plan developed with my supervision; agree with above. Resting in bed-very somnolent. Will respond to verbal stimuli, but not able to converse. Not keeping BiPAP on. Lungs: decreased, diminished air movement. CV: regular MSE: somnolent Plan: Alejandra did have extensive conversation with DPOZZIE about pt's status, discussed lack of gains being made and pt's reluctance for treatment. BOYD does not feel pt would want resuscitative measures - would NOT want Intubation with mech ventilation. He feels DNR appropriate and we concur-order for DNR written. Additional, we discussed about transition to comfort measures. He feels this would be prudent. Request [facility]. YAAKOV has made arrangements for meeting with hospice this afternoon. Hospital Course Summary Disclaimer: The visit summary below is not to be considered part of the above Progress Note. Addendum entered and electronically signed by Alejandra Varela APRN 09/06/16 15 :43: 1515- Spent 30 minutes at bedside with patient and DOPA. Discussed severity of current illness and progression. Tony Nicolas- BOYD requests to make patient DNR. Paperwork completed with myself and Dr Dunham. Tony is interested in placing Julia on hospice care. CM contacted to call hospice company.
[2016-09-06] MEDS ORDERED: HALOPERIDOL 5 MG/ML INJECTION IVP ONE (11:46)
[2016-09-06] MEDS ORDERED: HALOPERIDOL 5 MG/ML INJECTION IVP PRN (12:07)
--- NOTE | 2016-09-06 15:11 | Echocardiogram ---
DATE 09/06/2016 INDICATION Congestive heart failure. TECHNICAL QUALITY Technically good 2-D, M-mode, Doppler echocardiographic images were submitted for interpretation. FINDINGS 1. CARDIAC CHAMBERS. Left atrial size appears visually borderline enlarged. All other cardiac chamber measurements are normal. LV size and contractility appeared normal. RV size and contractility appeared normal. Aortic root diameter is normal. 2. LEFT VENTRICLE. Analysis reveals borderline concentric LVH, measured 11 mm in the posterior wall, 12.5 mm in the septal wall. Wall motion analysis is normal. Systolic function is preserved. Ejection fraction measured 48% and visually appears better than that. Dysrhythmia is present. Patient appears to be in atrial fibrillation 3. VALVES. Aortic valve exhibits mild sclerosis and calcification. Valve opening appears preserved. Mitral valve exhibits annular calcification posteriorly as well as some anterior annular echogenicity. The appearance may represent a bioprosthesis in this position versus an unusual _ apron?__ of circumferential mitral annular calcification. Valve opening is normal. Tricuspid valve structure and motion appear normal with normal valve excursion. 4. DOPPLER. Somewhat suboptimal. [id number] tricuspid regurgitation is present. Eccentric mitral regurgitation is present, appears to be in the moderate range. Full evaluation of mitral regurgitation is technically suboptimal. Peak flow velocities throughout measured within normal limits. Trace pulmonic insufficiency is present. Aortic valve area 1.9 cm2 with peak flow velocity of 1.45 m/sec indicates no significant aortic stenosis. Severe pulmonary hypertension is present. Systolic PA pressure estimated at 71- 76 mmHg. Central venous pressure is elevated based on the plethora of IVC. It exhibits minimal respiratory variation. The patient appears to be in underlying atrial fibrillation throughout the study. No evidence of pericardial effusion, intracardiac masses or demonstrable shunts. IMPRESSION 1. Technically difficult study. 2. Borderline left atrial enlargement. 3. Mild concentric LVH with normal systolic function. EF is visually estimated about 65%. 4. Aortic valve sclerosis without significant stenosis. 5. Abnormal mitral valve structure that either represents a bioprosthesis or an unusual circumferential mitral annular calcification. Mitral regurgitation is present. It is eccentric, hard to fully assess but appears to be in the moderate range. Transesophageal echocardiogram may be beneficial in better characterization. Of course correlation with clinical history and chest x-ray regarding any history of prior valve surgery if I don't see any evidence of clot or of vegetation on the valve or in the left atria. 6. Severe pulmonary hypertension. 7. Elevated central venous pressure. 8 Patient is in atrial fibrillation throughout the study. MTDD
[2016-09-06] MEDS ORDERED: FALL RISK - PHARMACY CONSULT XX PRN (19:43)
[2016-09-06] MEDS: HYDROMORPHONE 2 MG/ML INJECTION IVP PRN (22:13)
[2016-09-07] MEDS: NS 1,000 ML IV SCH ×2 (00:05→05:47)
[2016-09-07] MEDS: CLINDAMYCIN PB 300 MG/50 ML BAG IV SCH ×2 (00:05→05:46)
[2016-09-07] MEDS: PANTOPRAZOLE 40 MG TABLET PO SCH (05:49)
[2016-09-07] MEDS: ALBUTEROL/IPRATROPIUM 2.5mg-0.5mg/3ml NEB AEROSOL SCH ×3 (07:14→11:27)
[2016-09-07 08:01] VITALS: BP 158/103; PULSE 123; RESP 25; TEMP 96.4; O2SAT 93
--- NOTE | 2016-09-07 10:03 | Discharge Instructions ---
Discharge Plan - Med Rec/Dispo Kash Instructions: Hypoxia (GEN) Additional Instructions: Discharge to [facility]. Will be under the care of [facility] Prescriptions: New Hyoscyamine Sulfate [Levsin-Sl] 0.125 mg SL Q4H #10 tab.subl LORazepam INTENSOL [Ativan Intensol] 0.5 mg SL Q4H #30 ml Bisacodyl Supp [Dulcolax] 10 mg NM DAILY #10 supp Haloperidol Oral Liq [Haldol Liquid] 1 mg SL Q4HPRN #30 ml Morphine Sulfate Oral Liq [Roxanol Oral Liq] 5 mg PO Q2HR #30 solution Discontinued Allopurinol 100 mg PO DAILY #0 Polyethylene Glycol 3350 [Miralax] 17 gm PO DAILY Folic Acid [Folate] 1 tab PO DAILY Cyanocobalamin (Vitamin B-12) [Vitamin B-12] 2,000 mcg PO DAILY Tramadol [Ultram] 50 mg PO Q6HR PRN PRN Reason: Pain Bisoprolol [Zebeta] 2.5 mg PO DAILY Chlorpheniramine Maleate [Chlor-Trimeton] 4 mg PO Q4H PRN #0 PRN Reason: PRN ORDERS Docusate Sodium [Colace] 100 mg PO BID #60 cap Pantoprazole Sodium 40 mg PO ACBID #60 tab Bumetanide Tab [Bumex] 1 mg PO AM #30 tablet Nystatin Powder [Mycostatin] 1 applic TP TID bottle Calmoseptine Packet [Calmoseptine] 1 applic TP PRN Discharge Instructions/Outpatient Orders: Final Provider Discharge Instructions Location: Determined By Patient - Disposition 01 Discharged Home, Self-Care
[2016-09-07] MEDS: FOLIC ACID 1 MG TABLET PO SCH (11:27)
[2016-09-07] MEDS: DOCUSATE SODIUM 100 MG CAPSULE PO SCH (11:27)
[2016-09-07] MEDS: ASPIRIN *EC* 81 MG TABLET PO SCH (11:27)
[2016-09-07] MEDS: CYANOCOBALAMIN (B-12) 500mcg TABLET PO SCH (11:28)
[2016-09-07] MEDS: ALLOPURINOL 100 MG TABLET PO SCH (11:28)
[2016-09-07] MEDS: POLYETHYL GLYCOL 3350 17gm PACKET PO SCH (11:28)
--- NOTE | 2016-09-07 11:30 | Extended Care Facility Orders ---
Admission Orders Admit to:: [facility], Hospice Allergies/Adverse Reactions: Allergies neomycin Allergy (Intermediate, Verified 09/02/16 16:13) RASH amino acids Allergy (Unknown, Verified 09/02/16 16:13) chromium Allergy (Unknown, Verified 09/02/16 16:13) ergot alkaloids Allergy (Unknown, Verified 09/02/16 16:13) acetaminophen Adverse Reaction (Unknown, Verified 09/02/16 16:13) NAUSEA hydrocodone Adverse Reaction (Unknown, Verified 09/02/16 16:13) NAUSEA meperidine Adverse Reaction (Unknown, Verified 09/02/16 16:13) "CRAZY" morphine Adverse Reaction (Unknown, Verified 09/02/16 16:13) "CRAZY" Admitting Diagnosis: Acute on chronic hypoxic resp failure,ARIAN Admitting Physician: Mariah Sr MD Attending Physician: Dr Huber Code Status: DNR Anticiapted Length of Stay: 30 days or less Rehab Potential: poor Rehab Prognosis: poor Diet: 09/02/16 Breakfast Regular Diet [DIET] as pt able to tolerate Diet Modifications: May use Facility Protocol or Standing Orders: Yes May have flu vaccine: Yes Penitentiary Certification: I certify that SNF services are required to be given on an Inpatient basis because of the patients need for nursing home care on a continuing basis for the condition(s) for which he/she received inpatient hospital services prior to his/her transfer to the SNF. SNF inpatient care is necessary for the following reasons Indication for Penitentiary: Not Applicable (On Hospice care ) - Additional Information Resident is Aware of Diagnosis: No (Encephalopathy ) Additional Orders: [facility] to initiate care upon pt's arrival. Comfort care measures. O2 as needed for pt comfort.
[2016-09-07] MEDS: HYDROMORPHONE 2 MG/ML INJECTION IVP PRN (11:32)
--- NOTE | 2016-09-07 13:02 | Discharge Summary ---
Discharge Information Date of admission: 09/02/16 13:52 <[place] Dunham - 09/07/16 14:24> 09/02/16 13:52 <Alejandra Varela V - 09/07/16 13:07> Anticipated date of discharge: 09/07/16 <Alejandra Varela V - 09/07/16 13:07> Attending Physician: Mariah Sr MD <[place] Dunham - 09/07/16 14:24> Mariah Sr MD <Alejandra Varela V - 09/07/16 13:07> Primary care physician: Momo Clark MD <[place] - 09/07/16 14:24> Momo Clark MD <Alejandra Varela V - 09/07/16 13:07> Consults: 09/02/16 17:20 Case Management Consult [CONS] Routine Reason For Exam: 09/07/16 09:18 Doctor [Physician Consult] [CONS] Routine Consulting Provider: [facility] Reason For Exam: continued care Ordering Provider has Notified [employer]st: Yes 09/07/16 09:37 Hospice Consult [CONS] Routine Comment: already completed <[place] - 09/07/16 14:24> 09/02/16 17:20 Case Management Consult [CONS] Routine Reason For Exam: 09/07/16 09:18 Doctor [Physician Consult] [CONS] Routine Consulting Provider: [facility] Reason For Exam: continued care Ordering Provider has Notified [employer]st: Yes 09/07/16 09:37 Hospice Consult [CONS] Routine Comment: already completed <Alejandra Varela V - 09/07/16 13:07> - Discharge Diagnosis (1) HTN (hypertension) Qualifiers: Hypertension type: essential hypertension Qualified Code(s): I10 - Essential (primary) hypertension Status: Chronic (2) Pulmonary hypertension Status: Chronic (3) Supplemental oxygen dependent Status: Chronic (4) Acute respiratory failure with hypoxia Status: Acute (5) Elevated d-dimer Problem Details: CTA negative for large vessel PE Status: Acute (6) Elevated brain natriuretic peptide (BNP) level Status: Acute (7) Encephalopathy Status: Acute (8) ARIAN (acute kidney injury) Status: Acute (9) Atrial fibrillation Status: Acute (10) Pleural effusion Status: Acute <Alejandra Varela Samson 09/07/16 12:58> (1) Acute respiratory failure with hypoxia Status: Acute (2) Encephalopathy Status: Acute (3) Elevated brain natriuretic peptide (BNP) level Status: Acute (4) Pulmonary hypertension Status: Chronic (5) HTN (hypertension) Qualifiers: Hypertension type: essential hypertension Qualified Code(s): I10 - Essential (primary) hypertension Status: Chronic (6) Supplemental oxygen dependent Status: Chronic (7) Elevated d-dimer Problem Details: CTA negative for large vessel PE Status: Acute (8) ARIAN (acute kidney injury) Status: Acute (9) Atrial fibrillation Status: Acute (10) Pleural effusion Status: Acute <New Dunham 09/07/16 14:24> - Procedures Procedures: None <Alejandra Varela V 09/07/16 13:07> - Laboratory Labs: 09/07/16 04:25 09/07/16 04:25 <[place] - 09/07/16 14:24> 09/07/16 04:25 09/07/16 04:25 <Alejandra Varela V 09/07/16 13:07> - Microbiology Blood cultures from 09/02/16-negative <AhwahneeAlejandra V 09/07/16 13:07> - Radiology Radiology: 09/02-chest x-ray- Impression: Continued findings of pulmonary edema. Superimposed pneumonia or aspiration cannot be excluded in the lower lobes. 09/03-CT head- IMPRESSION: No acute intracranial abnormality or hemorrhage. Slightly advanced white matter disease for age. 09/04-CT angiogram pulmonary emboli/aorta study- Impression: 1. Limited exam due to severe artifact and other technical factors. No pulmonary embolus or acute aortic syndrome seen. 2. Pleural effusions and findings of severe congestive failure. 09/04-chest x-ray- Impression: Continued mild to moderate pulmonary edema may be slightly improved from the CT. 09/06-chest x-ray- Persistent findings suggestive of congestive heart failure and pulmonary edema though improved aeration within the lungs when compared with two days earlier. 09/06-echocardiogram- IMPRESSION 1. Technically difficult study. 2. Borderline left atrial enlargement. 3. Mild concentric LVH with normal systolic function. EF is visually estimated about 65%. 4. Aortic valve sclerosis without significant stenosis. 5. Abnormal mitral valve structure that either represents a bioprosthesis or an unusual circumferential mitral annular calcification. Mitral regurgitation is present. It is eccentric, hard to fully assess but appears to be in the moderate range. Transesophageal echocardiogram may be beneficial in better characterization. Of course correlation with clinical history and chest x-ray regarding any history of prior valve surgery if I don't see any evidence of clot or of vegetation on the valve or in the left atria. 6. Severe pulmonary hypertension. 7. Elevated central venous pressure. 8 Patient is in atrial fibrillation throughout the study. <AveryAlejandra V - 09/07/16 13:07> - Pathology none <Alejandra Varela V - 09/07/16 13:07> History of Present Illness HPI: Julia is a 81 yr old who is well known to the hospitalist services as she was recently admitted on 08/23/16 through 08/25/16 with increased lower extremity edema and weight gain. During her hospitalization she was diuresed approximately 5.8 kilograms at discharge weight was 120kg. She was discharged on 3 liters of oxygen by nasal cannula for chronic respiratory failure with hypoxemia and hypercapnia. It is reported by group home staff that patient has been requiring 4 liters of oxygen for the past 4-5 days, however. Sats have been in the 80s during this time. Given an increase in oxygen demands today. Patient was sent by EMS to [facility] emergency room for acute evaluation and treatment. The cecum was normal, 7.8, hemoglobin 10.8, hematocrit 35.4, platelet count 245. Sodium is 140, potassium 4.3, CO2 32, BUN is elevated at 51 and creatinine of 1.4.(Creatinine at time of discharge was 1.2). Troponin 0.02. 3. ProBNP is 13,100. This is significantly up from previous. BNP of 5700. Urinalysis shows trace protein, positive bilirubin, otherwise unremarkable. A chest x-ray does reveal continued pulmonary edema. She has been in atrial fibrillation since admission which is not a new finding for her. However, rate has varied from 90 up to 140s. She is to Neck breathing 28-40 times a minute. To maintain adequate saturations. She is requiring 9 liters of oxygen by nonrebreather. Given his acute findings and change in respiratory status. The hospital service will contact accept patient for inpatient admission for further evaluation and treatment Julia is seen on initial examination. She is alert, however, confused regarding the details of her arrival to [facility]. She initially states that she "coded" while in the emergency room and she remembers a surgeon with blood on his scrubs, placing them in a sack. Her DPOA a is at the bedside and he verifies that this is not accurate. Staff report that patient did appear to be confused at times, which may be secondary to her hypoxia. She is somewhat suspicious and has a difficult time understanding why her doctor isn't taking care of her at the hospital. She is able to verify that her breathing seems to be worse over the last several days, however, cannot quantify or give specifics. We did discuss advanced directives and she does verify that she would like intubation and resuscitation, however, declines treatment of an acute stroke. <Alejandra Varela V - 09/07/16 13:07> Hospital Course This is a general summary of the patient's hospital course. For more details refer to the complete medical record. <[place] D - 09/07/16 14:24> This is a general summary of the patient's hospital course. For more details refer to the complete medical record. <Alejandra Varela V - 09/07/16 13:07> Hospital course: 09/02/16- Admission Acute respiratory failure with hypoxia requiring 8-9 liters of oxygen to maintain saturations Encephalopathy- suspect related to hypoxia Elevated b-jjtej-grtjlay on admission Elevated proBNP- present on admission Hypertension CHF- diastolic Chronic atrial fibrillation Chronic kidney disease Chronic oxygen dependence- 3 liters by nasal cannula at baseline History pulmonary hypertension chronic back pain Gout Cataracts Osteoarthritis Depression history of scarlet fever History of GI bleed morbid obesity Plan Patient to inpatient status under the care of Dr Sr for acute respiratory failure with hypoxia requiring 9 liters of oxygen by nasal cannula, along with acute elevation of proBNP and d-Dimer, present on admission. Consult placed to respiratory therapist for ongoing oxygen evaluation and management. Currently on 8-9 liters at time of examination. Baseline is Renal function is elevated as patient is likely intramuscularly dry however may need diuresising for known diastolic congestive heart failure. Will discuss further with attending. Home Bumex on hold. Obtain ABG at time of admission. Will monitor patient. Cardiac telemetry given her chronic atrial fibrillation. At times she has rapid ventricular rate between 80 and 140. Did review home medications. SCDs/KALLIE hose to bilateral lower extremity for treatment of ongoing edema and DVT prophylaxis. In light of elevated d-dimer, accompanied with increased hypoxia may need to evaluate further to rule out a pulmonary emboli. At this time given elevated renal function will hold off on ordering CT of the chest. May need to obtain VQ scan. Will discuss with attending. Will repeat CBC and BMP tomorrow morning to follow blood counts renal function and electrolytes. Again July does wish to be a full code and this orders written. Will discuss furhter orders and plan of care with attending Dr Sr At time of discharge medical care will return to primary care provider, Dr. Kirill Clark 09/03/16 Continue with scheduled Duoneb breathing treatments and Bipap for respiratory support In light of worsening hypoxia and elevated D-dimer she was started on Eliquis however she is refusing it this morning. She did have a GI bleed in May of 2016 that was through to be diverticular in nature. Will need to motnior carefully for evidence of bleeding May consider further imaging VG scan for further pulmonary evaluation to rule out PE.. Renal function remains elevated at 1.4 and BUN 57. FENa- 0.1% likely representing pre-renal azotemia possibly related to dehydration. Continue to follow routine labs. Will recheck CBC, BMP and pro-BMP tomorrow morning Will discuss further plan and orders with attending, Dr Sr 09/04/16July is agreeable to obtaining the CT to rule out pulmonary emboli. Since her renal function has now improved. Likely need to utilize when necessary Ativan to help patient relax so that she can lie still Did discuss and recommend MRI of the brain to rule out CVA. July refuses at this time. Will need to discuss anticoagulation or ASA. Continue with oxygenation to maintain adequate saturations. Creatinine does appear to have improved down to 1.2. ProBNP has trended down to 7620 today. Continue with hydration given pre-renal azotemia appearance of labs. Remains in A-fib on cardiac telemetry. Dr Sr did speak with DPOA last evening regarding concern for overall status, code status and ongoing status. 09/05/16 16:09 July continues to display significant respiratory failure. Continue Bipap is she is willing, but she has been variable with compliance. Requiring High Flow oxygen otherwise for hypoxia. It appears she may have significant heart failure, but overall px is fairly poor. If family wishes to continue aggressive care, we could consider an echo. She is requiring IVF right now due to decreased PO intake. RN did report following initial exam that her mentation had improved post 1 hours bipap. She then became agitated and required ativan. CTA negative for PE. She remains on Eliquis due to Chronic Atrial Fib. She does have a hx of GI bleed- may want to consider basic ASA therapy for her atrial fib. Repeat labs in AM. 09/06/16 Responsiveness continues to be intermittent. Nursing staff reports she pulls off Bi-pap and IV lines at times requiring ativan. Chest xray this morning did reveal improvement of edema and aeration without obvious pleural effusion. She continues on BiPAP- Bicarb today is 34. Today, she is refusing all medications orally. Continues on IV fluids for ongoing hydration Renal function continues to improve, creatinine today 1.2. Awaiting to speak with Reverend Maria Isabel NIX later today as he was going to talk with patient and other family members regarding code status. Did discuss further orders and plan of care with attending, Dr. Dunham 09/07/16- Discharge Unfortunately July has not shown much improvement and is requiring Bipap around the clock. Curt Nicolas did change patient's status to do not resuscitate yesterday as well as initiating hospice services. She was evaluated by [facility] yesterday and accepted to return to [facility] under their ongoing care. Did speak with [facility] hospice nurse, Rosalind today regarding discharge medications. Patient was sent with prescriptions of the following medications per hospice request., Roxanol, we did discuss adverse reaction. However, hospice requested to proceed with this. Additional prescriptions include Ativan, Haldol, Levsin and Dulcolax suppositories. <Alejandra Varela V - 09/07/16 13:07> Time spent with patient: greater than 35 minutes <Alejandra Varela V - 09/07/16 13:07> Discharge Plan - Med Rec/Dispo Referrals/Follow Up: <[place] - 09/07/16 14:24> [place] Instructions: Hypoxia (GEN) <CharlaWolff D - 09/07/16 14:24> Additional Instructions: Discharge to [facility]. Will be under the care of [facility] <Charla,Wolff D - 09/07/16 14:24> Prescriptions: New Hyoscyamine Sulfate [Levsin-Sl] 0.125 mg SL Q4H #10 tab.subl LORazepam INTENSOL [Ativan Intensol] 0.5 mg SL Q4H #30 ml Bisacodyl Supp [Dulcolax] 10 mg [place] DAILY #10 supp Haloperidol Oral Liq [Haldol Liquid] 1 mg SL Q4HPRN #30 ml Morphine Sulfate Oral Liq [Roxanol Oral Liq] 5 mg PO Q2HR #30 solution Discontinued Allopurinol 100 mg PO DAILY #0 Polyethylene Glycol 3350 [Miralax] 17 gm PO DAILY Folic Acid [Folate] 1 tab PO DAILY Cyanocobalamin (Vitamin B-12) [Vitamin B-12] 2,000 mcg PO DAILY Tramadol [Ultram] 50 mg PO Q6HR PRN PRN Reason: Pain Bisoprolol [Zebeta] 2.5 mg PO DAILY Chlorpheniramine Maleate [Chlor-Trimeton] 4 mg PO Q4H PRN #0 PRN Reason: PRN ORDERS Docusate Sodium [Colace] 100 mg PO BID #60 cap Pantoprazole Sodium 40 mg PO ACBID #60 tab Bumetanide Tab [Bumex] 1 mg PO AM #30 tablet Nystatin Powder [Mycostatin] 1 applic TP TID bottle Calmoseptine Packet [Calmoseptine] 1 applic TP PRN <[place] Dunham - 01/14 14:24> Discharge Instructions/Outpatient Orders: Final Provider Discharge Instructions Location: Determined By Patient <Charla,[place] - 09/07/16 14:24> - Disposition 50 Discharged To Hospice-Home <[place] - 09/07/16 14:24> - Attestation Attestation Narrative: 09/07/16 14:22 Have independently interviewed and examined pt. Chart reviewed. Case discussed with CM and my CIRCUIT DESIGNER. Care plan developed with my supervision; agree with above. Resting in bed. Minimal responsiveness. Not engaging in conversation. Lungs: decreased, coarse bilaterally CV: regular MSE: obtunded Plan: D/C to [facility] for hospice care. Control pain. [facility] to initiate care upon pt's arrival to [facility]. <[place] - 09/07/16 14:24>
[2016-09-09] MEDS ORDERED: APIXABAN 5 MG TABLET PO SCH (21:00)
== END 2016-09-07 13:00 | disposition hospice, home (50) | DRG 189 ==
LOC: ED 10:36 → MED 13:52
PROVIDERS: ADMIT Internal Medicine; ATTEND Internal Medicine